=== PATIENT | female | born 1965 | race Caucasian/White ===

== ENCOUNTER 2019-01-31 12:27 | Emergency (ER) | payer MEDICAID ==
[~2019-01-31] VITALS: Ht 154.9 cm; Wt 55.0 kg
--- NOTE | 2019-01-31 12:42 | NUR ---
dr. rivera at bedside.
[2019-01-31 13:05] LABS: BASOPHILS % (AUTO) 0.6 % (0-1); HEMATOCRIT 44.3 % (35.0-45.0); HEMOGLOBIN 15.2 g/dl (12.0-16.0); LYMPHOCYTES # (AUTO) 0.9 X10'3 (1.1-4.8); LYMPHOCYTES % (AUTO) 18.1 % (21-51); MEAN CORPUSCULAR HEMOGLOBIN 29.7 PG (27.0-31.0); MEAN CORPUSCULAR HGB CONC 34.3 g/dL (33.0-36.5); MEAN CORPUSCULAR VOLUME 86.5 FL (78-98); MEAN PLATELET VOLUME 8.2 FL (7.4-10.4); MONOCYTES # (AUTO) 0.5 X10'3 (0-0.9); MONOCYTES % (AUTO) 9.6 % (2-12); NEUTROPHILS # (AUTO) 3.5 X10'3 (1.8-7.7); NEUTROPHILS % (AUTO) 70.7 % (42-75); PLATELET COUNT 224 X10'3 (140-440); RED BLOOD COUNT 5.12 X10'6 (4.20-5.60); RED CELL DISTRIBUTION WIDTH 13.1 % (11.5-14.5); WHITE BLOOD COUNT 4.9 X10'3 (4.5-11.0)
[2019-01-31 13:20] LABS: ALANINE AMINOTRANSFERASE 18 U/L (12-78); ALBUMIN 3.9 G/DL (3.4-5.0); ALKALINE PHOSPHATASE 124 IU/L (46-116); ANION GAP 9 (8-16); ASPARTATE AMINO TRANSFERASE 13 U/L (10-37); BILIRUBIN,TOTAL 0.4 MG/DL (0.1-1.0); BLOOD UREA NITROGEN 14 MG/DL (7-18); CALCIUM 9.4 MG/DL (8.5-10.1); CHLORIDE 102 MMOL/L (99-107); GLUCOSE 96 MG/DL (70-104); POTASSIUM 3.7 MMOL/L (3.5-5.1); SODIUM 139 MMOL/L (135-145); TOTAL PROTEIN 7.8 G/DL (6.4-8.2); eGFR 88 ML/MIN
[2019-01-31 13:24] LABS: CLARITY,URINE CLEAR (Clear); COLOR,URINE YELLOW (Yellow); GLUCOSE, URINE NEGATIVE (Neg); KETONES,URINE NEGATIVE (Neg); LEUKOCYTE ESTERASE ,URINE TRACE (Neg); NITRITES, URINE NEGATIVE (Neg); OCCULT BLOOD,URINE NEGATIVE (Neg); PROTEIN,URINE NEGATIVE (Neg); UROBILINOGEN,URINE 0.2 E.U/dL (0.2-1.0)
[2019-01-31 13:28] LABS: ETHANOL < 0.010 GM/DL (0.0-0.010)
[2019-01-31 13:31] LABS: UA COLLECTION TYPE CLN CATCH MIDSTREAM
[2019-01-31 13:32] LABS: WBC,URINE 30-50 /HPF (0-4)
[2019-01-31 13:33] LABS: BACTERIA,URINE 2+ /HPF (Neg); MUCUS STRANDS MODERATE /LPF (Neg); RBC,URINE NONE SEEN /HPF (0-2); SQUAMOUS EPITHELIAL CELL,UR MANY /LPF (FEW)
[2019-01-31 13:37] LABS: URINE AMPHETAMINE SCREEN NEGATIVE (Neg); URINE BARBITUATE SCREEN NEGATIVE (Neg); URINE BENZODIAZEPINES SCREEN NEGATIVE (Neg); URINE CANNABINOID SCREEN POSITIVE (Neg); URINE COCAINE SCREEN NEGATIVE (Neg); URINE METHADONE SCREEN POSITIVE (Neg); URINE OPIATE SCREEN NEGATIVE (Neg); URINE PHENCYCLIDINE SCREEN NEGATIVE (Neg)
[2019-01-31] MEDS ORDERED: nicotine 21mg patch - 24 hr TD ONE (13:50)
[2019-01-31] MEDS ORDERED: nitrofuran/nitrofuran macrocrysal 100 MG capsule PO ONE (14:30)
--- NOTE | 2019-01-31 14:39 | NUR ---
PAT SITTING UP AT THE BEDSIDE, AT BEDSIDE,PAT MED GIVEN,NO OTHER CONCERN,WILL CONT TO MONITOR.
--- NOTE | 2019-01-31 14:51 | NUR ---
PAGED [facility] 2X-NO RESPOND,ALSO CALLED [facility],UNABLE TO LOCATE PSYCHIATRIST AND GERA KIRK/KINDRA.DR. ULLOA AWARE AND CN.UNABLE TO TELE PSYCH SINCE NOT CONTRACTED ANYMORE.
--- NOTE | 2019-01-31 15:10 | NUR ---
PSYCHIATRIST AT BEDSIDE.
[2019-01-31] MEDS ORDERED: sertraline 25mg tablet PO ONE (16:05)
[2019-01-31] MEDS ORDERED: risperiDONE 0.5mg tablet PO ONE (16:05)
--- NOTE | 2019-01-31 16:09 | NUR ---
patient reported psychiatrist that she had + ppd and was advise to take a 9 month medication for tuberculosis,reports cxray showed "calcification" denies hemoptysis.also denies sputum culture being performed.patient placed on airborne precaution,hepa filter in the room.
--- NOTE | 2019-01-31 16:37 | NUR ---
PSYCHIATRIST DR. EDGAR. TOLD US PT. WAS TESTED POSITIVE FOR TB, AND WAS NOT TAKING HER MEDICATIONS. PT. WAS IMMEDIATLY PLACED IN ISOLATION AND THE HEPPA FILTER WAS PLACED IN ROOM...... DR. ULLOA WAS NOTIFIED. DR. ULLOA ORDERED A CHEST FILM WHICH WAS NEGATIVE..... DR. ULLOA HAS CLEARED THE PT. FOR ISOLATION. ABISAI WITH INFECTION CONTROL HAS BEEN MADE AWARE.
--- NOTE | 2019-01-31 16:45 | NUR ---
PAT OFF THE AIRBORN PRECAUTION,PAT DRESSED UP IN GREEN GOWN,SPOUSE AT BEDSIDE.
--- NOTE | 2019-01-31 16:52 | NUR ---
PATIENT STILL DENIES SI OR HISTORY OF SI.
--- NOTE | 2019-01-31 18:01 | NUR ---
patient in the room.on 1:1.no change in condition.will monitor.
[2019-01-31] MEDS ORDERED: LORazepam 1 MG tablet PO ONE (18:20)
--- NOTE | 2019-01-31 18:25 | NUR ---
PT DENIES S/H/I AND DENIES AUDIO/VISUAL HALLUCINATIONS AT THIS TIME. MOOD IS LABILE AND INCLUDES TEARFULNESS. PT REPORTS "BEING DEPRESSED" AND STATES "I JUST WANT TO GO HOME." EXPLAINED PT IS ON A 1799 HOLD AND IS NOT FREE TO LEAVE AT THIS TIME. PT BECAME INCREASINGLY AGITATED, BUT WITH MODERATE EFFORT WAS REDIRECTABLE. KATIE RANDY.
--- NOTE | 2019-01-31 18:32 | NUR ---
PT INDICATED SHE HAD NOT EATEN YET; SADIEY ORDERED
--- NOTE | 2019-01-31 19:15 | NUR ---
DINNER TRAY PROVIDED PT WHO IS NOW INDICATING SHE IS UNHAPPY WITH WHAT HAS BEEN PROVIDED BECAUSE IT "ISN'T LIKE THE TRAYS I SAW GO BY." WHEN PROBED IT APPEARS PT EXPECTED A WARM MEAL VERSES COLD.
[2019-01-31] MEDS ORDERED: haloperidol lactate 5mg/ml inj IM ONE (19:35)
--- NOTE | 2019-01-31 19:35 | NUR ---
WARM DINNER TRAY PROVIDED. PT MOOD LABILE, VASCILLATING BETWEEN TEARFULNESS AND RESTLESSNESS. KATIE PADILLA.
--- NOTE | 2019-01-31 19:44 | NUR ---
reports that pt has had adverse reactions "agitation" to Valium in the past.
[2019-01-31] MEDS ORDERED: NICOTINE POLACRILEX 2 MG LOZENGE BC PRN (20:45)
[2019-01-31] MEDS ORDERED: NICOTINE POLACRILEX 4 MG LOZENGE BC PRN (20:45)
[2019-02-01] MEDS ORDERED: METH-603 PO (03:41)
[2019-02-01] MEDS ORDERED: LORazepam 1 MG tablet PO ONE (05:00)
[2019-02-01 05:43] VITALS: BP 123/78
[2019-02-01] MEDS ORDERED: METH5SOL PO (06:06)
--- NOTE | 2019-02-01 06:54 | NUR ---
SPOKE WITH PHARMACIST AND HE STATES HE IS AWARE THAT THE PT IS SUPPOSED TO BE ON 61MG OF METHADONE LIQUID BUT WE DO NOT HAVE THE LIQUID VERSION SO MD MARINO OK'D THE PT GETTING 60MG SINCE THIS IS THE AMOUNT WE HAVE.
[2019-02-01] MEDS ORDERED: methadone 10mg tablet PO SCH (08:00)
--- NOTE | 2019-02-01 08:09 | NUR ---
TALKED WITH THE DOSING UNIT AT [facility] AND ASKED FOR THEM TO SEND A WRITTEN ORDER FOR THE PT'S METHADONE AND THE DOSE. MD MCCORD REQUESTED TO HAVE THE ORDER FOR THIS FROM THE FACILITY SENT OVER SO WE HAVE IT ON OUR RECORDS.
--- NOTE | 2019-02-01 09:19 | NUR ---
PT GIVEN THE PHONE TO CALL HER .
--- NOTE | 2019-02-01 09:41 | NUR ---
PT'S IS HERE TO VISIT PT.
--- NOTE | 2019-02-01 10:10 | NUR ---
PT IS BEING EVALUATED BY EUFEMIA GARCES
[2019-02-01] MEDS ORDERED: RISP0.5T3 PO (11:35)
[2019-02-01] MEDS ORDERED: HALO0.5T PO (11:35)
== END 2019-02-01 11:53 | disposition home or self-care (01) ==
LOC: ER 12:29
DX: F22 Delusional disorders (principal); F79 Unspecified intellectual disabilities; F32.9 Major depressive disorder, single episode, unspecified; F17.200 Nicotine dependence, unspecified, uncomplicated; Z88.0 Allergy status to penicillin; Z88.8 Allergy status to other drugs, medicaments and biological substances; Z79.899 Other long term (current) drug therapy
CPT/HCPCS: 36415; 71045; 80053; 80305; 80320; 81001; 85025; 96372; 99284; J1630

== ENCOUNTER 2019-02-16 14:36 | Inpatient (IN) | payer MEDICAID ==
[~2019-02-16] VITALS: Ht 154.9 cm; Wt 49.9 kg
[~2019-02-16 14:36] MED LIST: HALO0.5T PO; METH5SOL PO; RISP0.5T3 PO
[2019-02-16] MEDS ORDERED: QUET100T33 PO (15:28)
[2019-02-16] MEDS ORDERED: MELA3TAB PO (15:28)
[2019-02-16] MEDS ORDERED: loperamide 2mg capsule PO PRN (15:45)
[2019-02-16] MEDS ORDERED: acetaminophen 325mg tablet PO PRN ×2 (15:45)
[2019-02-16] MEDS ORDERED: magnesium hydroxide 30ml (MOM) UD suspension PO PRN (15:45)
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
[2019-02-16 16:59] VITALS: BP 136/93
[2019-02-16] MEDS ORDERED: NICOTINE POLACRILEX 2 MG LOZENGE BC PRN (17:35)
[2019-02-16] MEDS: LORazepam 1 MG tablet PO PRN (18:00)
[2019-02-16 20:00] VITALS: BP 139/86
[2019-02-16] MEDS: hydrOXYzine 25 MG tablet PO PRN (20:43)
[2019-02-16] MEDS: Melatonin 3mg tablet PO SCH (20:44)
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
[2019-02-17] MEDS: LORazepam 1 MG tablet PO PRN ×2 (05:54→12:12)
[2019-02-17 07:49] VITALS: BP 151/99
[2019-02-17] MEDS: nicotine 14mg patch - 24hr TD SCH (07:51)
[2019-02-17] MEDS: hydrOXYzine 25 MG tablet PO PRN ×2 (07:55→19:22)
[2019-02-17 08:50] LABS: CHOL/HDL RATIO 4.6 (0.00-4.99); CHOLESTEROL 164 MG/DL (0-200); HDL CHOLESTEROL 36 MG/DL (35-60); LDL CHOLESTEROL 110 MG/DL (50-100); TRIGLYCERIDES 108 MG/DL (20-135)
[2019-02-17 08:59] LABS: HEMOGLOBIN A1C 5.2 % (4.5-6.2)
[2019-02-17] MEDS ORDERED: pantoprazole 40mg Tablet.DR PO ONE (11:40)
--- NOTE | 2019-02-17 11:48 | NUR ---
Nurse note: Dr Jeffries evaluated pt. There was a question about pt having positive PPD at [facility] and starting I[place] there. Dr Jeffries asked us to call Dr Shafer. Called Dr Shafer and he states that pt is fine since negative CXR. No further orders and no isolation needed.
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
[2019-02-17] MEDS: cloNIDine 0.1 mg tablet PO PRN (19:45)
[2019-02-17 19:54] VITALS: BP 127/72
[2019-02-17] MEDS: Melatonin 3mg tablet PO SCH (20:21)
[2019-02-17] MEDS: risperiDONE 0.5mg tablet PO SCH (20:22)
[2019-02-17] MEDS: pantoprazole 40mg Tablet.DR PO SCH (20:22)
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
[2019-02-18 07:00] VITALS: BP 117/74
[2019-02-18] MEDS: pantoprazole 40mg Tablet.DR PO SCH ×2 (07:41→20:08)
[2019-02-18] MEDS: nicotine 14mg patch - 24hr TD SCH (07:42)
[2019-02-18] MEDS: mag hydrox/Alum hydrox/simeth 30ml oral suspension PO PRN (12:30)
--- NOTE | 2019-02-18 14:16 | NUR ---
Nursing Progress Note Legal hold: 5150 - DTS Report received from Lucy sidhu RN with use of SBAR Why are they here: Pt attempted suicide by OD on methadone and Seroquel resulting in a 7 day ICU stay at [facility]. Pt is delusional and paranoid and now denies it was a suicide attempt, states she was forced to do it. Assessment: Patient sleeping upon arrival to unit. Patient up for breakfast, then stayed in her room in the a.m. During 1:1 patient was extremely irritable and dismissive. Denying all SI, A/V/H. Patient was given Tylenol before [facility] in which her pain was 6/10, now she states it is 8/10. Patient with med seeking behavior. Patient makes delusional statements such as: You guys are trying to hurt me, assured her that this is not the case. She asked what are you doing for me? Informed her that we are giving her medications ordered by doctor, making sure she is safe, providing meals. Pts. charting states that she has not had BM for several days, pt states that she is not constipated and will not take anything offered. "I will let you know when I am constipated". Reports that she just wants to go home and be with her . S/I, H/I: Denies A/VH: Denies Sleep: 7.75 hrs NOC. ADL's: Independent Group attendance: Yes. Were meds taken: Yes Any med S/E: None reported nor observed Mental Status Exam Appearance: Dressed in personal attire, nonskid socks, hair in ponytail Eye contact: Intermittent Behavior: Guarded, dismissive, agitated Speech: Clear. Normal rate and volume. Mood: "Great" Affect: Costricted and irritable Thought process: paranoid delusions Thought Content: Fixated on abdominal pain, receiving Ativan, wants to leave Cognition: A/O X 4 Insight: Impaired. Judgment: Poor Interventions PRN's used: None. Therapeutic interventions: 1:1 assessment, establishment of rapport, therapeutic listening, reassurance that pt is safe here, reality orientation. Unit procedure, legal hold, and medication education. Q15 min safety checks. Restraints/seclusion/emergency medication: N/A Justification of Continued Inpatient Treatment: Pt is s/p a serious SA via OD, pt is paranoid and delusional. She needs crisis interruption, medication management/adjustment/monitoring in a a safe and therapeutic environment to provide stabilization, and prevent decompensation decreasing risk to patient for readmittance to inpatient unit.
[2019-02-18 19:00] VITALS: BP 166/114
[2019-02-18] MEDS: risperiDONE 0.5mg tablet PO SCH (20:06)
[2019-02-18] MEDS: cloNIDine 0.1 mg tablet PO PRN (20:07)
[2019-02-18] MEDS: Melatonin 3mg tablet PO SCH (20:08)
[2019-02-18 21:00] VITALS: BP 144/96
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
[2019-02-18] MEDS: hydrOXYzine 25 MG tablet PO PRN (21:39)
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
[2019-02-19] MEDS ORDERED: quetiapine 100mg tablet PO SCH (00:10)
[2019-02-19] MEDS ORDERED: QUEtiapine 25mg tablet PO ONE (01:50)
[2019-02-19] MEDS: hydrOXYzine 25 MG tablet PO PRN (04:36)
[2019-02-19 07:00] VITALS: BP 152/87
[2019-02-19] MEDS: pantoprazole 40mg Tablet.DR PO SCH ×2 (07:11→20:54)
[2019-02-19] MEDS: nicotine 14mg patch - 24hr TD SCH (07:11)
--- NOTE | 2019-02-19 13:28 | NUR ---
Nursing Progress Note Legal hold: 5150 - DTS Report received from nahum Renteria RN with use of SBAR Why are they here: Pt attempted suicide by OD on methadone and Seroquel resulting in a 7 day ICU stay at [facility]. Pt is delusional and paranoid and now denies it was a suicide attempt, states she was forced to do it. Assessment: Patient awake sitting in chair upon arrival to unit. Patient did not sleep at all last night. States she has withdrawal symptoms with terrible abdominal pain, that kept her up all night. Patient states that she doesn't feel like we are helping her here and wants to be transferred to [facility] in [place] that she has been to before. She thinks that the staff does not believe her that she is in pain. Consulted with HIMANSHU Tomlinson and he states that withdrawal from opioids only last 2-3 days, and she has been without opioids for 10 days. Her 5150 is up today, and she is upset about the thought of staying here longer. She is acting paranoid, that the nurses and doctors don't want to help her. Manipulative. She was given Tylenol for pain this morning and then threw up and said she has an allergy to it, although it was given the day before without symptoms. She states Clonidine makes her have continuous orgasms; both of these medications were stopped and listed as allergies. She has been on the phone with family crying, and seems to be going through grief stages. She will not discuss overdose with RN, stating she talked to HIMANSHU Tomlinson about this yesterday. S/I, H/I: Denies A/VH: Denies Sleep: No sleep at night. ADL's: Independent Group attendance: No. Were meds taken: Yes Any med S/E: None reported nor observed Mental Status Exam Appearance: Patient that appears older than her stated age with purple hair. Eye contact: Intermittent Behavior: Guarded, crying on telephone. Speech: Clear. Normal rate and volume. Mood: Depressed Affect: Constricted and irritable Thought process: paranoid delusions of being poisoned, staff are against her. Thought Content: Fixated on abdominal pain and getting Ativan. Wants to be discharged or go to [facility]. Cognition: A/O X 4 Insight: Impaired. Judgment: Poor Interventions PRN's used: Tylenol. Therapeutic interventions: 1:1 assessment, therapeutic listening, reassurance that pt is safe here, reality orientation. Unit procedure, legal hold, and medication education. Q15 min safety checks. Restraints/seclusion/emergency medication: N/A Justification of Continued Inpatient Treatment: Pt is s/p a serious SA via OD, pt is paranoid and delusional. She needs crisis interruption, medication management/adjustment/monitoring in a a safe and therapeutic environment to provide stabilization, and prevent decompensation decreasing risk to patient for readmittance to inpatient unit.
[2019-02-19 19:22] VITALS: BP 152/100
[2019-02-19] MEDS: Melatonin 3mg tablet PO SCH (20:54)
[2019-02-19] MEDS ORDERED: risperiDONE 2mg tablet PO SCH (21:00)
--- NOTE | 2019-02-20 02:24 | NUR ---
Nursing Progress Note Legal hold: 5150 - DTS Report received from nahum Renee RN with use of SBAR Why are they here: Pt attempted suicide by OD on methadone and Seroquel resulting in a 7 day ICU stay at [facility]. Pt is delusional and paranoid and now denies it was a suicide attempt, states she was forced to do it. Assessment: Pt awake in bed in dark room at start of shift. Pt keep face covered with arm during conversation. Pt said she did not want to talk to about why she was here "if that is OK". C/o abd pain but did not want any pain medications. Took all Routine meds declined any PRNs. Came to froup room for snack. Did not interact with anyone went right back to room after eating. S/I, H/I: Declined to say A/VH: Declined to say Sleep: Asleep at this time ADL's: Independent Group attendance: came to group room for snack Were meds taken: Yes Any med S/E: None reported or observed Mental Status Exam Appearance: Patient that appears older than her stated age with purple hair. Eye contact: Intermittent Behavior: Guarded, crying on telephone. Speech: Clear. Normal rate and volume. Mood: Depressed Affect: Constricted and irritable Thought process: Staff are against her. Thought Content: No one cares about her health complaints Cognition: A/O X 4 Insight: Impaired. Judgment: Poor Interventions PRN's used: none Therapeutic interventions: 1:1 assessment, therapeutic listening, reassurance that pt is safe here, reality orientation. Unit procedure, legal hold, and medication education. Q15 min safety checks. Restraints/seclusion/emergency medication: N/A Justification of Continued Inpatient Treatment: Pt is s/p a serious SA via OD, pt is paranoid and delusional. She needs crisis interruption, medication management/adjustment/monitoring in a a safe and therapeutic environment to provide stabilization, and prevent decompensation decreasing risk to patient for readmittance to inpatient unit.
[2019-02-20] MEDS: nicotine 14mg patch - 24hr TD SCH (07:31)
[2019-02-20] MEDS: pantoprazole 40mg Tablet.DR PO SCH ×2 (07:32→21:51)
[2019-02-20 08:15] VITALS: BP 132/101
[2019-02-20] MEDS: mag hydrox/Alum hydrox/simeth 30ml oral suspension PO PRN (12:02)
--- NOTE | 2019-02-20 12:26 | NUR ---
Nursing Progress Note Legal hold: 5250 - DTS Report received from nahum Brewer RN with use of SBAR Why are they here: Pt attempted suicide by OD on methadone and Seroquel resulting in a 7 day ICU stay at [facility]. Pt is delusional and paranoid and now denies it was a suicide attempt, states she was forced to do it. Assessment: Patient awake upon arrival to unit. Attempted physical exam and mental status exam. All patient would say is that she is "peachy". Approached patient after lunch with honest appraisal of situation. Patient responded that she does not know how to communicate with people. She is not used to women being kind to her. Informed her that she was pushing people away and had a wall up, and that if she would be open and willing to accept help, that she would find that people would rally around her and help her live a better life. Patient stated that she was in a lot of pain from withdrawing from Methadone. Patient states that she doesn't even know what she took to overdose, but that it never should have happened. Patient apologized for the disrespect that she had been showing pattern chart writer, and asked for and received a hug. Patient was smiling brightly by the end of the conversation. ISAAC Nesbitt just informed RN that patient was in bathroom "trying to throw up". She was asked to stop, which she did, but she heard patient in bathroom as she was leaving. S/I, H/I: Denies A/VH: Denies Sleep: 7.75 hrs NOC, but pt states that she did not sleep well. ADL's: Independent Group attendance: Yes. Were meds taken: Yes Any med S/E: None reported nor observed Mental Status Exam Appearance: Patient that appears older than her stated age with purple hair. Eye contact: Intermittent Behavior: At first guarded, dismissive and angry. After talk she was smiling. Speech: Clear. Normal rate and volume. Mood: Depressed Affect: Constricted and irritable Thought process: paranoid delusions of being poisoned, staff are against her. Thought Content: Fixated on abdominal pain. Wants to be discharged or go to [facility]. Cognition: A/O X 4 Insight: Poor. Judgment: Poor Interventions PRN's used: Maalox, but patient was "trying to throw up" after administration. Refuses all other prns. Therapeutic interventions: 1:1 assessment, therapeutic listening, reassurance that pt is safe here, reality orientation. Unit procedure, legal hold, and medication education. Q15 min safety checks. Restraints/seclusion/emergency medication: N/A Justification of Continued Inpatient Treatment: Pt is s/p a serious SA via OD, pt is paranoid and delusional. She needs crisis interruption, medication management/adjustment/monitoring in a a safe and therapeutic environment to provide stabilization, and prevent decompensation decreasing risk to patient for readmittance to inpatient unit.
[2019-02-20 20:25] VITALS: BP 137/105
[2019-02-20] MEDS ORDERED: QUEtiapine 25mg tablet PO ONE (21:25)
[2019-02-20] MEDS: Melatonin 3mg tablet PO SCH (21:51)
[2019-02-20] MEDS: dicyclomine 10 MG capsule PO SCH (21:52)
[2019-02-21] MEDS ORDERED: QUEtiapine 25mg tablet PO ONE (01:55)
[2019-02-21] MEDS: dicyclomine 10 MG capsule PO SCH ×3 (02:02→14:00)
--- NOTE | 2019-02-21 02:56 | NUR ---
Nursing Progress Note Legal hold: 5250 - DTS Report received from nahum Renee RN with use of SBAR Why are they here: Pt attempted suicide by OD on methadone and Seroquel resulting in a 7 day ICU stay at [facility]. Pt is delusional and paranoid and now denies it was a suicide attempt, states she was forced to do it. Assessment: Pt affect bright. Pt said "it's ok I lost my (legal hold) hearing I'm not going to be here that much longer" Pt denies depression or SI. Describes mood as "good". Pt interacted in a very positive way with a very difficult pt. Encouraged the other pt and said very kind things to her. here to visit. During 's visit pt enlisted to ask that pt receive Ativan for stomach pain. Explanation that Ativan is not a pain medication but an antianxiety medication made no impression. Offered Atarax pt said it makes her throw up. Motrin, Aleve, and Tylenol also make the pt throw up. Robi Akbar talked to pt at length ordered Bentyl and Seroquel. Pt happy with new orders. Pt unable to sleep repeat Seroquel. Pt still not asleep at this time. S/I, H/I: Denies A/VH: Denies Sleep: no sleep this shift so far ADL's: Independent Group attendance: Yes. Were meds taken: Yes Any med S/E: None reported nor observed Mental Status Exam Appearance: Patient that appears older than her stated age with purple hair. Eye contact: Good Behavior: Pleasant and cooperative Speech: Clear. Normal rate and volume. Mood: Good Affect: Bright Thought process: Delusional at times Thought Content: Fixated on abdominal pain. Lists of side effects to medications. Cognition: A/O X 4 Insight: Poor. Judgment: Poor Interventions PRN's used: none Therapeutic interventions: 1:1 assessment, therapeutic listening, reassurance that pt is safe here, reality orientation. Unit procedure, legal hold, and medication education. Q15 min safety checks. Restraints/seclusion/emergency medication: N/A Justification of Continued Inpatient Treatment: Pt is s/p a serious SA via OD, pt is paranoid and delusional. She needs crisis interruption, medication management/adjustment/monitoring in a a safe and therapeutic environment to provide stabilization, and prevent decompensation decreasing risk to patient for readmittance to inpatient unit.
[2019-02-21 07:51] VITALS: BP 158/86
[2019-02-21] MEDS: risperiDONE 2mg tablet PO SCH (08:04)
[2019-02-21] MEDS: pantoprazole 40mg Tablet.DR PO SCH (08:04)
[2019-02-21] MEDS: nicotine 14mg patch - 24hr TD SCH (08:04)
--- NOTE | 2019-02-21 12:50 | NUR ---
Initial: Pt admit to [facility] with depression. Pt currently on regular diet with previous average 75% PO intake however now averaging 25% likely not meeting nutrient needs. Per MD notes pt c/o abdominal pain and possibly going through withdrawals. D/w RN who states hospitalist to visit pt. Informed RN to let RD/dietary staff know if there's anything pt is requesting to optimize PO intake. [facility] 02/20. Will continue to follow. Recommendations: 1) Continue with regular diet 2) Monitor need for ONS 3) Weekly wts Addendum: 02/21/19 at [address] Amended: Links added.
--- NOTE | 2019-02-21 13:23 | NUR ---
1:1 Called [facility] at [phone] to see who patient has for a PCP. Was not able to contact.
[2019-02-21 14:54] LABS: CLARITY,URINE SLIGHTLY CLOUDY (Clear); COLOR,URINE YELLOW (Yellow); GLUCOSE, URINE NEGATIVE (Neg); KETONES,URINE NEGATIVE (Neg); LEUKOCYTE ESTERASE ,URINE NEGATIVE (Neg); NITRITES, URINE NEGATIVE (Neg); OCCULT BLOOD,URINE NEGATIVE (Neg); PROTEIN,URINE NEGATIVE (Neg); UROBILINOGEN,URINE 0.2 E.U/dL (0.2-1.0)
[2019-02-21 14:55] LABS: UA COLLECTION TYPE NON-SPECIFIED
[2019-02-21 15:00] LABS: SQUAMOUS EPITHELIAL CELL,UR MANY /LPF (FEW)
[2019-02-21 15:01] LABS: BACTERIA,URINE 1+ /HPF (Neg); MUCUS STRANDS FEW /LPF (Neg); RBC,URINE 0-2 /HPF (0-2); WBC,URINE 0-4 /HPF (0-4)
--- NOTE | 2019-02-21 17:23 | NUR ---
Nursing Progress Note Legal hold: 5250 - DTS Report received from nahum Kowalski RN with use of SBAR Why are they here: Pt attempted suicide by OD on methadone and Seroquel resulting in a 7 day ICU stay at [facility]. Pt is delusional and paranoid and now denies it was a suicide attempt, states she was forced to do it. Assessment: Received patient up in the room. Patient had bright affect and appeared to be relaxed. Patient denied auditory hallucinations, denied depression and denied suicidal thoughts. As the day went on patient complained of abdominal pain and chest pain. PA asked for the hospitalist to come see the patient. Dr. Molina came and saw the patient and ordered a bunch of tests which she will follow up with. Patient called the patient rights advocate Kevan Waller who came by and saw her and patient then submitted a writ to appeal her 14 day hold. Will continue to provide safe environment and monitor for patient safety. S/I, H/I: Denies A/VH: Denies Sleep: 7.75 hrs NOC, but pt states that she did not sleep well. ADL's: Independent Group attendance: Yes. Were meds taken: Yes Any med S/E: None reported nor observed Mental Status Exam Appearance: Patient that appears older than her stated age with purple hair. Eye contact: Intermittent Behavior: At first guarded, dismissive and angry. After talk she was smiling. Speech: Clear. Normal rate and volume. Mood: Depressed Affect: Constricted and irritable Thought process: paranoid delusions of being poisoned, staff are against her. Thought Content: Fixated on abdominal pain. Wants to be discharged or go to [facility]. Cognition: A/O X 4 Insight: Poor. Judgment: Poor Interventions PRN's used: Maalox, but patient was "trying to throw up" after administration. Refuses all other prns. Therapeutic interventions: 1:1 assessment, therapeutic listening, reassurance that pt is safe here, reality orientation. Unit procedure, legal hold, and medication education. Q15 min safety checks. Restraints/seclusion/emergency medication: N/A Justification of Continued Inpatient Treatment: Pt is s/p a serious SA via OD, pt is paranoid and delusional. She needs crisis interruption, medication management/adjustment/monitoring in a a safe and therapeutic environment to provide stabilization, and prevent decompensation decreasing risk to patient for readmittance to inpatient unit.
[2019-02-21] MEDS ORDERED: dicyclomine 10 MG capsule PO PRN (18:20)
[2019-02-21 20:47] VITALS: BP 167/99
[2019-02-21] MEDS: Melatonin 3mg tablet PO SCH (21:00)
[2019-02-21] MEDS ORDERED: QUEtiapine 25mg tablet PO SCH (21:00)
--- NOTE | 2019-02-22 03:37 | NUR ---
Nursing Progress Note Legal hold: 5250 - DTS Report received from nahum Renee RN with use of SBAR Why are they here: Pt attempted suicide by OD on methadone and Seroquel resulting in a [address] [facility]. Pt is delusional and paranoid and now denies it was a suicide attempt, states she was forced to do it. Assessment: Pt in room at start of shift. Pt denies depression or SI. Pt numerous c/o Chief nurse does not have her best interests at heart, Dr. Rosenbaum will not give her the medications she wants, Pt filed a writ today she said the ombudsman was very helpful. Pt said she was not going to allow lab draws that were ordered to figure out why she has abd pain. "I'm going to [place] when I get out of here." Pt saw Robi Akbar who told her her would be discharged in AM. Pt very happy and excited to be discharged will return home with . S/I, H/I: Denies A/VH: Denies Sleep: sleeping at this time ADL's: Independent Group attendance: Socialized in group room. Were meds taken: Yes Any med S/E: None reported nor observed Mental Status Exam Appearance: Patient that appears older than her stated age with purple hair. Eye contact: Intermittent Behavior: pleasant and cooperative Speech: Clear. Normal rate and volume. Mood: denies depression Affect: pleasant Thought process:, staff are against her. Thought Content: Fixated on abdominal pain. Wants to be discharged or go to [facility]. Cognition: A/O X 4 Insight: Poor. Judgment: Poor Interventions PRN's used: none Therapeutic interventions: 1:1 assessment, therapeutic listening, reassurance that pt is safe here, reality orientation. Unit procedure, legal hold, and medication education. Q15 min safety checks. Restraints/seclusion/emergency medication: N/A Justification of Continued Inpatient Treatment: Pt is s/p a serious SA via OD, pt is paranoid and delusional. She needs crisis interruption, medication management/adjustment/monitoring in a a safe and therapeutic environment to provide stabilization, and prevent decompensation decreasing risk to patient for readmittance to inpatient unit.
[2019-02-22 07:54] VITALS: BP 156/102
[2019-02-22] MEDS ORDERED: pantoprazole 40mg Tablet.DR PO SCH (08:00)
[2019-02-22] MEDS ORDERED: lisinopril 10 MG tablet PO SCH (08:00)
[2019-02-22 08:24] VITALS: BP_SYST 156
[2019-02-22] MEDS: risperiDONE 2mg tablet PO SCH (08:25)
[2019-02-22] MEDS: nicotine 14mg patch - 24hr TD SCH (08:26)
[2019-02-22] MEDS ORDERED: LISI10TA4 PO (11:18)
[2019-02-22] MEDS ORDERED: RISP2TAB3 PO (11:18)
--- NOTE | 2019-02-22 13:06 | NUR ---
Discharge Note: Patient discharged to home with all her personal possessions as inventoried and agreed upon by Ezekiel Garrido and patient. Ambulated out of unit accompanied by and staff member Ezekiel. will be driving patient home. Patient denies suicidal ideation or intent. Mood and affect stable. Noted improvement since admission. She will follow up with psychiatric care at [facility]. Patient is not a smoker and did not require nicotine supplements at time of discharge.
[2019-02-25] MEDS ORDERED: pantoprazole 40mg Tablet.DR PO SCH (07:30)
== END 2019-02-22 12:50 | disposition home or self-care (01) | DRG 751 ==
LOC: ADULT MH 15:27
PROVIDERS: ADMIT Psychiatry & Neurology Psychiatry; ATTEND Psychiatry & Neurology Psychiatry
DX: F33.3 Major depressive disorder, recurrent, severe with psychotic symptoms (principal); F17.200 Nicotine dependence, unspecified, uncomplicated; T40.3X2A Poisoning by methadone, intentional self-harm, initial encounter; K30 Functional dyspepsia; F60.3 Borderline personality disorder; I10 Essential (primary) hypertension; R10.9 Unspecified abdominal pain; T42.4X2A Poisoning by benzodiazepines, intentional self-harm, initial encounter; Y92.89 Other specified places as the place of occurrence of the external cause; Z71.6 Tobacco abuse counseling
CPT/HCPCS: 36415; 71045; 74018; 80061; 81001; 83036; 87070; 93005; Q0177

== ENCOUNTER 2019-04-06 17:42 | Emergency (ER) | payer MEDICAID ==
[~2019-04-06] VITALS: Ht 154.9 cm; Wt 45.5 kg
[~2019-04-06 17:42] MED LIST changes: -HALO0.5T PO; +LISI10TA4 PO; +MELA3TAB64 PO; -METH5SOL PO; -RISP0.5T3 PO; +RISP2TAB3 PO
[2019-04-06 18:34] LABS: URINE AMPHETAMINE SCREEN NEGATIVE (Neg); URINE BARBITUATE SCREEN NEGATIVE (Neg); URINE BENZODIAZEPINES SCREEN NEGATIVE (Neg); URINE CANNABINOID SCREEN POSITIVE (Neg); URINE COCAINE SCREEN NEGATIVE (Neg); URINE METHADONE SCREEN NEGATIVE (Neg); URINE OPIATE SCREEN NEGATIVE (Neg); URINE PHENCYCLIDINE SCREEN NEGATIVE (Neg)
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
[2019-04-06 18:51] LABS: CLARITY,URINE SLIGHTLY CLOUDY (Clear); COLOR,URINE AMBER (Yellow); GLUCOSE, URINE NEGATIVE (Neg); KETONES,URINE TRACE mg/dl (Neg); LEUKOCYTE ESTERASE ,URINE TRACE (Neg); NITRITES, URINE NEGATIVE (Neg); OCCULT BLOOD,URINE NEGATIVE (Neg); PH,URINE 5.5 (4.8-8.0); PROTEIN,URINE 30 mg/dl (Neg)
[2019-04-06 18:54] LABS: UA COLLECTION TYPE CLN CATCH MIDSTREAM
[2019-04-06] MEDS ORDERED: LORazepam 0.5 MG tablet PO PRN (18:55)
--- NOTE | 2019-04-06 18:55 | NUR ---
The patient's is at the bedside. He was made aware of treatment plan.
[2019-04-06 19:10] LABS: BACTERIA,URINE 2+ /HPF (Neg); MUCUS STRANDS MANY /LPF (Neg); SQUAMOUS EPITHELIAL CELL,UR MANY /LPF (FEW)
[2019-04-06 19:12] LABS: RBC,URINE 0-2 /HPF (0-2); YEAST FEW /HPF (NEGATIVE)
[2019-04-06 19:13] LABS: CELLULAR CAST 0-4 /LPF (NEGATIVE); COARSE GRANULAR CAST 0-3 /LPF (NEGATIVE)
[2019-04-06 19:17] LABS: CAL OXALATE CRYSTALS 2+ /HPF (NEGATIVE)
[2019-04-06 19:25] LABS: BASOPHILS % (AUTO) 0.4 % (0-1); EOSINOPHILS # (AUTO) 0.1 X10'3 (0-0.9); EOSINOPHILS % (AUTO) 0.9 % (0-6); HEMATOCRIT 42.2 % (35.0-45.0); HEMOGLOBIN 14.5 g/dl (12.0-16.0); LYMPHOCYTES # (AUTO) 1.4 X10'3 (1.1-4.8); LYMPHOCYTES % (AUTO) 22.5 % (21-51); MEAN CORPUSCULAR HEMOGLOBIN 29.5 PG (27.0-31.0); MEAN CORPUSCULAR HGB CONC 34.2 g/dL (33.0-36.5); MEAN CORPUSCULAR VOLUME 86.1 FL (78-98); MEAN PLATELET VOLUME 8.1 FL (7.4-10.4); MONOCYTES # (AUTO) 0.5 X10'3 (0-0.9); MONOCYTES % (AUTO) 7.9 % (2-12); NEUTROPHILS # (AUTO) 4.3 X10'3 (1.8-7.7); NEUTROPHILS % (AUTO) 68.3 % (42-75); PLATELET COUNT 233 X10'3 (140-440); RED BLOOD COUNT 4.91 X10'6 (4.20-5.60); RED CELL DISTRIBUTION WIDTH 14.2 % (11.5-14.5); WHITE BLOOD COUNT 6.3 X10'3 (4.5-11.0)
[2019-04-06 19:37] LABS: ALANINE AMINOTRANSFERASE 22 U/L (12-78); ALBUMIN 3.7 G/DL (3.4-5.0); ALKALINE PHOSPHATASE 91 IU/L (46-116); ANION GAP 10 (8-16); ASPARTATE AMINO TRANSFERASE 11 U/L (10-37); BILIRUBIN,TOTAL 0.4 MG/DL (0.1-1.0); BLOOD UREA NITROGEN 15 MG/DL (7-18); BUN/CREATININE RATIO 24.6 (6.6-38.0); CALCIUM 9.4 MG/DL (8.5-10.1); CHLORIDE 106 MMOL/L (99-107); CREATININE 0.61 MG/DL (0.40-0.90); GLUCOSE 97 MG/DL (70-104); SODIUM 141 MMOL/L (135-145); TOTAL CARBON DIOXIDE 25.1 MMOL/L (24-32); TOTAL PROTEIN 7.4 G/DL (6.4-8.2); eGFR > 90 ML/MIN
[2019-04-06] MEDS ORDERED: potassium Cl 20 mEq SR tablet PO STA (19:51)
--- NOTE | 2019-04-06 19:52 | NUR ---
Cam DOWNS made aware of critical lab of K+ 3.0 and orders received.
[2019-04-06 19:57] LABS: ETHANOL < 0.010 GM/DL (0.0-0.010)
[2019-04-06] MEDS: nicotine 21mg patch - 24 hr TD SCH (19:57)
--- NOTE | 2019-04-06 20:08 | NUR ---
Frankie douglas in [facility] - 04/06/19 at 2042 by YARON Melodie Middleton patient advocate [phone]
[2019-04-06] MEDS: Melatonin 3mg tablet PO SCH ×2 (20:30→21:00)
[2019-04-06] MEDS: risperiDONE 2mg tablet PO SCH ×2 (20:30→21:00)
--- NOTE | 2019-04-06 20:35 | NUR ---
The patient refused PO medications and presents as very paranoid. Admits to feeling paranoid about the food and has not eaten.
[2019-04-06] MEDS ORDERED: LORazepam 2 mg/ml vial IV ONE (21:00)
[2019-04-06] MEDS ORDERED: TETanus/Pertussis (Acell)/Diphther VAC/PF (Tdap-Adult) 0.5ml syringe IM ONE (21:00)
[2019-04-06] MEDS ORDERED: LIDOcaine 1% w/epiNEPHrine 1:200,000 30ml vial IM ONE (21:00)
[2019-04-06] MEDS ORDERED: iohexol 300mg/ml 100ml inj. ONE (21:11)
--- NOTE | 2019-04-06 21:33 | NUR ---
The patient is very paranoid and mistrustful of staff. She refused to have tetnus booster. Patient out to CT
[2019-04-06] MEDS ORDERED: OLANZapine 5mg rapidly disint. tablet PO ONE (21:50)
--- NOTE | 2019-04-06 22:19 | NUR ---
Dr. Proctor made aware of patient complaining of resperdal and melatonin not working in the past per patient report and that she was now willing to try zyprexa and orders were received. She did take the zypexa zydis and appears to be asleep at this time.
--- NOTE | 2019-04-07 00:03 | NUR ---
The patient was uncooperative with the PA who attempted to place sutures. Wound cleaned by exchange operator and steri strips applied.
--- NOTE | 2019-04-07 02:02 | NUR ---
The patient appears to be aslseep
--- NOTE | 2019-04-07 04:46 | NUR ---
The patient appears to be asleep
--- NOTE | 2019-04-07 08:00 | NUR ---
AWAKE AND UP WALKING AROUND NURSES DESK. MAKING SEVERAL PHONE CALLS TO . STATES SHE NEEDS MED FOR ANXIETY AND NICOTINE WITHDRAWAL.
[2019-04-07] MEDS: nicotine 21mg patch - 24 hr TD SCH (08:14)
[2019-04-07] MEDS: LORazepam 1 MG tablet PO PRN ×2 (08:14→20:03)
--- NOTE | 2019-04-07 09:47 | NUR ---
husbands number [phone]
--- NOTE | 2019-04-07 10:12 | NUR ---
pt is sleeping
--- NOTE | 2019-04-07 10:48 | NUR ---
pt is resting quietly in bed
--- NOTE | 2019-04-07 11:43 | NUR ---
mental health worker at bedside
--- NOTE | 2019-04-07 11:47 | NUR ---
[facility] WORKER INTERVIEWING PATIENT AT PRESENT. CALLED IN FOR CONDITION REPORT AND WILL BE COMING TO VISIT THIS AFTERNOON.
--- NOTE | 2019-04-07 12:13 | NUR ---
pt on the phone with
--- NOTE | 2019-04-07 12:30 | NUR ---
HERE TO VISIT. PATIENT SLIGHTLY AGITATED WITH , BUT DIRECTED TO CALM SELF.
--- NOTE | 2019-04-07 12:37 | NUR ---
[facility] mental health worker is now talking to
--- NOTE | 2019-04-07 13:30 | NUR ---
PT LAYING IN BED CRYING BECAUSE SHE IS FRUSTRATED.
--- NOTE | 2019-04-07 14:08 | NUR ---
PT IN ROOM, APPEARS TO BE ASLEEP.
--- NOTE | 2019-04-07 15:11 | NUR ---
PT IS AWAKE, LAYING IN BED QUIETLY
--- NOTE | 2019-04-07 15:53 | NUR ---
PT APPEARS TO BE SLEEPING
[2019-04-07] MEDS ORDERED: QUET100T33 PO (21:29)
[2019-04-07] MEDS: quetiapine 100mg tablet PO SCH (21:57)
[2019-04-08] MEDS: LORazepam 1 MG tablet PO PRN ×2 (03:41→10:46)
[2019-04-08] MEDS ORDERED: LORazepam 1 MG tablet PO ONE (04:25)
[2019-04-08] MEDS ORDERED: diphenhydrAMINE 25mg capsule PO ONE (04:25)
[2019-04-08] MEDS ORDERED: quetiapine 100mg tablet PO ONE (05:15)
[2019-04-08] MEDS ORDERED: LORazepam 2 mg/ml vial IM ONE (05:25)
[2019-04-08] MEDS ORDERED: haloperidol lactate 5mg/ml inj IM ONE (05:25)
[2019-04-08 05:30] VITALS: BP 181/113
--- NOTE | 2019-04-08 05:35 | NUR ---
Rec'd call from Katerine @ [facility] requesting an HCG. This senior copywriter checked pt's chart and informed Katerine that pt had no LMP due to menopause. Katerine at [facility] said that she would check with the doctor. RN informed.
--- NOTE | 2019-04-08 05:42 | NUR ---
Patient has been beligerant and acting paranoid accusing me of giving her placebo medication. Stating that the clocks are wrong and we are trying to trick her. Arguing with and challenging the security guards. Constantly asking random questions and not believing any answers given. PO ativan has not been effective. She refused benadryl as well as a 2nd dose of seroquel offered. States she does want to go back to sleep, but we are giving her placebo. IM ativan and haldol ordered and patient was cooperative with the administration.
--- NOTE | 2019-04-08 07:14 | NUR ---
Pt awake and stating she is hungry. Pt given snacks
--- NOTE | 2019-04-08 07:14 | NUR ---
pt has been asking for food. pt has food now and lots of snacks pt is now happy.
[2019-04-08] MEDS: nicotine 21mg patch - 24 hr TD SCH (08:33)
[2019-04-08] MEDS: quetiapine 100mg tablet PO SCH (08:34)
--- NOTE | 2019-04-08 08:42 | NUR ---
sundeep from [facility] called @8:35am pickup time 12:15pm
--- NOTE | 2019-04-08 08:47 | NUR ---
Liset from [facility] called to say Pt has been accepted to [facility] by Dr Jameson. The truck driver's offsider will be here at 1215.
--- NOTE | 2019-04-08 09:10 | NUR ---
pt resting quietly
--- NOTE | 2019-04-08 09:30 | NUR ---
pts is at bedside
--- NOTE | 2019-04-08 09:54 | NUR ---
pts left due to pts behavior. pt threw ice water across the room, pt verbally abusing staff members and pt is being rude to and staff members.
--- NOTE | 2019-04-08 09:55 | NUR ---
Pt's came to visit. Pt became loud and agitated and visit was cut short
--- NOTE | 2019-04-08 10:40 | NUR ---
Pt asleep resting on left side in no apparent distress. Respirations are even and unlabored.
--- NOTE | 2019-04-08 11:06 | NUR ---
pt aggitated per Tech stated pt was throwing items out of room. Spoke with Dr. Siddiqui, stated she will be over shortly to assess pt.
--- NOTE | 2019-04-08 11:37 | NUR ---
PT IS ON THE PHONE WITH HER
--- NOTE | 2019-04-08 12:17 | NUR ---
[facility] transporter here to take client to [facility]
== END 2019-04-08 12:26 | disposition home or self-care (01) ==
LOC: ER 17:42
DX: S31.112A Laceration without foreign body of abdominal wall, epigastric region without penetration into peritoneal cavity, initial encounter (principal); S21.139A Puncture wound without foreign body of unspecified front wall of thorax without penetration into thoracic cavity, initial encounter; E87.6 Hypokalemia; F32.9 Major depressive disorder, single episode, unspecified; Z79.899 Other long term (current) drug therapy; Z88.0 Allergy status to penicillin; Z88.8 Allergy status to other drugs, medicaments and biological substances; X78.1XXA Intentional self-harm by knife, initial encounter; Y93.89 Activity, other specified; Y92.89 Other specified places as the place of occurrence of the external cause; Y99.8 Other external cause status
CPT/HCPCS: 36415; 74175; 80053; 80305; 80320; 81001; 84443; 85025; 96372; 96374; 99285; J1630; J2060; Q0163; Q9967

== ENCOUNTER 2024-06-03 11:24 | Inpatient (IN) | payer MEDICAID ==
[~2024-06-03] VITALS: Ht 154.9 cm; Wt 59.6 kg
[~2024-06-03 11:24] MED LIST changes: -LISI10TA4 PO; -MELA3TAB64 PO; +QUET100T34 PO; -RISP2TAB3 PO
[2024-06-03 12:31] LABS: BASOPHILS % (AUTO) 0.3 % (0-1); EOSINOPHILS % (AUTO) 0.3 % (0-6); HEMOGLOBIN 14.7 g/dl (12.0-16.0); LYMPHOCYTES # (AUTO) 0.9 X10'3 (1.1-4.8); MEAN CORPUSCULAR HEMOGLOBIN 28.2 PG (27.0-31.0); MEAN CORPUSCULAR HGB CONC 34.2 g/dL (33.0-36.5); MEAN CORPUSCULAR VOLUME 82.6 FL (78-98); MEAN PLATELET VOLUME 9.1 FL (7.4-10.4); MONOCYTES # (AUTO) 0.7 X10'3 (0-0.9); MONOCYTES % (AUTO) 7.5 % (2-12); NEUTROPHILS # (AUTO) 7.2 X10'3 (1.8-7.7); NEUTROPHILS % (AUTO) 81.9 % (42-75); PLATELET COUNT 284 X10'3 (140-440); RED CELL DISTRIBUTION WIDTH 13.6 % (11.5-14.5); WHITE BLOOD COUNT 8.8 X10'3 (4.5-11.0)
[2024-06-03 12:34] LABS: ALANINE AMINOTRANSFERASE 17 U/L (12-78); ALBUMIN 3.1 G/DL (3.4-5.0); ALBUMIN/GLOBULIN RATIO 0.7 (1.1-1.5); ALKALINE PHOSPHATASE 167 IU/L (46-116); ASPARTATE AMINO TRANSFERASE 31 U/L (10-37); BILIRUBIN,TOTAL 0.9 MG/DL (0.1-1.0); BLOOD UREA NITROGEN 26 MG/DL (7-18); BUN/CREATININE RATIO 21.5 (10.0-20.0); CALCIUM 9.5 MG/DL (8.5-10.1); CREATININE 1.21 MG/DL (0.40-0.90); GLUCOSE 118 MG/DL (70-104); LIPASE 23 U/L (16-77); TOTAL CARBON DIOXIDE 28.4 MMOL/L (24-32); TOTAL PROTEIN 7.7 G/DL (6.4-8.2); eCRCL 38 ML/MIN; eGFR 46 ML/MIN
[2024-06-03] MEDS: ondansetron/PF 4mg/2ml inj IV ONE (12:37)
[2024-06-03] MEDS: normal saline 1000ML IV soln IVB ONE (12:37)
[2024-06-03] MEDS: morphine 4 MG/ML inj SYRINge IV ONE ×2 (12:37→14:15)
[2024-06-03 12:55] LABS: POTASSIUM 1.9 MMOL/L (3.5-5.1)
[2024-06-03 12:56] LABS: ANION GAP 16 (8-16); CHLORIDE 87 MMOL/L (99-107); SODIUM 131 MMOL/L (135-145)
[2024-06-03] MEDS ORDERED: NO HOME MEDS (13:07)
[2024-06-03] MEDS ORDERED: potassium Cl 40MEQ/270ML bag 250 ML IV PRN (13:25)
[2024-06-03] MEDS ORDERED: potassium Cl 40MEQ/1/2NS 520ml 520 ML IV PRN (13:25)
[2024-06-03] MEDS ORDERED: potassium Cl 20mEq/100mL bag 100 ML IV PRN (13:25)
[2024-06-03] MEDS ORDERED: magnesium sulf-water 4G/100mL 100 ML IV PRN ×2 (13:25→14:35)
[2024-06-03] MEDS ORDERED: magnesium sulf-water 2g/50mL 50 ML IV PRN ×2 (13:25→14:35)
[2024-06-03 13:54] LABS: BILIRUBIN,URINE SMALL (Neg); COLOR,URINE YELLOW (Yellow); GLUCOSE, URINE NEGATIVE (Neg); KETONES,URINE 15 mg/dl (Neg); LEUKOCYTE ESTERASE ,URINE NEGATIVE (Neg); NITRITES, URINE NEGATIVE (Neg); OCCULT BLOOD,URINE SMALL (Neg); PROTEIN,URINE 100 mg/dl (Neg); UROBILINOGEN,URINE 0.2 E.U/dL (0.2-1.0)
[2024-06-03 13:57] LABS: CLARITY,URINE SLIGHTLY CLOUDY (Clear); UA COLLECTION TYPE CLN CATCH MIDSTREAM
[2024-06-03 14:01] LABS: BACTERIA,URINE FEW /HPF (Neg); MUCUS STRANDS FEW /LPF (Neg); SQUAMOUS EPITHELIAL CELL,UR MODERATE /LPF (FEW); WBC,URINE 0-4 /HPF (0-4)
[2024-06-03] MEDS: potassium CL 10mEq/100ml bag 100 ML IV PRN (14:03)
[2024-06-03] MEDS: metoclopramide 5 mg/ml inj IV ONE (14:11)
[2024-06-03] MEDS: diphenhydrAMINE 50 mg/ml inj IV ONE (14:18)
[2024-06-03] MEDS ORDERED: potassium Cl 20 mEq SR tablet PO PRN (14:35)
[2024-06-03] MEDS ORDERED: acetaminophen 325mg tablet PO PRN ×2 (14:35)
[2024-06-03] MEDS ORDERED: bisacodyl 10mg suppository rectal RC PRN (14:35)
[2024-06-03] MEDS ORDERED: HYDROmorphone/PF 0.2 MG/ML SYRINGE IV PRN (14:35)
[2024-06-03] MEDS ORDERED: iohexol 350MG/ML 100ml bottle IV ONE ×2 (14:44→16:31)
[2024-06-03] MEDS: niCARDipine-NS 40mg/200ml IVPB 200 ML IV SCH (14:54)
[2024-06-03] MEDS: HYDROmorphone inj. 0.5 MG/0.5 ML DISP.SYRIN IV PRN (15:01)
[2024-06-03] MEDS: nicotine 21mg patch - 24 hr TD SCH (15:31)
[2024-06-03] MEDS: potassium Cl 40MEQ/1/2NS 520ml 520 ML IV PRN (19:12)
[2024-06-03] MEDS: normal saline 1000ml 1,000 ML IV SCH (19:13)
[2024-06-03] MEDS: heparin, porcine 5000 units/ml vial SQ SCH (19:18)
[2024-06-03 22:00] VITALS: BP 224/117; PULSE 95
[2024-06-03 22:15] VITALS: BP 201/119; PULSE 90
[2024-06-03 22:30] VITALS: BP 135/113; PULSE 91
[2024-06-03 22:45] VITALS: BP 169/96; PULSE 99
[2024-06-03 23:00] VITALS: BP 171/92; PULSE 89
[2024-06-03 23:30] VITALS: BP 174/90; PULSE 97
[2024-06-04] VITALS (30 sets, daily range): BP systolic 109–209; BP diastolic 72–135; PULSE 87–119; RESP 12–22; TEMP 97.6–98.5; O2SAT 90–97
[2024-06-04 07:21] LABS: BASOPHILS % (AUTO) 0.4 % (0-1); EOSINOPHILS # (AUTO) 0.1 X10'3 (0-0.9); HEMATOCRIT 37.7 % (35.0-45.0); HEMOGLOBIN 12.7 g/dl (12.0-16.0); LYMPHOCYTES # (AUTO) 1.3 X10'3 (1.1-4.8); LYMPHOCYTES % (AUTO) 16.3 % (21-51); MEAN CORPUSCULAR HGB CONC 33.6 g/dL (33.0-36.5); MEAN CORPUSCULAR VOLUME 83.4 FL (78-98); MEAN PLATELET VOLUME 8.5 FL (7.4-10.4); MONOCYTES # (AUTO) 0.8 X10'3 (0-0.9); NEUTROPHILS # (AUTO) 5.6 X10'3 (1.8-7.7); NEUTROPHILS % (AUTO) 72.3 % (42-75); PLATELET COUNT 277 X10'3 (140-440); RED BLOOD COUNT 4.53 X10'6 (4.20-5.60); RED CELL DISTRIBUTION WIDTH 13.6 % (11.5-14.5); WHITE BLOOD COUNT 7.8 X10'3 (4.5-11.0)
[2024-06-04 07:36] LABS: ALANINE AMINOTRANSFERASE 26 U/L (12-78); ALBUMIN 2.7 G/DL (3.4-5.0); ALBUMIN/GLOBULIN RATIO 0.7 (1.1-1.5); ALKALINE PHOSPHATASE 150 IU/L (46-116); ANION GAP 12 (8-16); ASPARTATE AMINO TRANSFERASE 37 U/L (10-37); BILIRUBIN,TOTAL 0.9 MG/DL (0.1-1.0); BLOOD UREA NITROGEN 12 MG/DL (7-18); BUN/CREATININE RATIO 12.1 (10.0-20.0); CALCIUM 8.1 MG/DL (8.5-10.1); CHLORIDE 95 MMOL/L (99-107); CREATININE 0.99 MG/DL (0.40-0.90); GLUCOSE 108 MG/DL (70-104); SODIUM 134 MMOL/L (135-145); TOTAL CARBON DIOXIDE 27.2 MMOL/L (24-32); TOTAL PROTEIN 6.8 G/DL (6.4-8.2); eCRCL 47 ML/MIN; eGFR 58 ML/MIN
[2024-06-04 07:37] LABS: CHOL/HDL RATIO 4.7 (0.00-4.99); CHOLESTEROL 211 MG/DL (0-200); HDL CHOLESTEROL 45 MG/DL (35-60); LDL CHOLESTEROL 121 MG/DL (50-100); TRIGLYCERIDES 176 MG/DL (20-135)
[2024-06-04 07:43] LABS: HEMOGLOBIN A1C 5.1 % (4.5-6.2)
[2024-06-04 07:44] LABS: POTASSIUM 2.4 MMOL/L (3.5-5.1)
[2024-06-04] MEDS ORDERED: aminophylline inj. 10 ML IV ONE (09:18)
[2024-06-04] MEDS: regadenoson 0.4mg/5ml syringe IV ONE (09:42)
[2024-06-04] MEDS: aminophylline 500mg/20ml vial IV ONE (10:00)
[2024-06-04] MEDS: potassium Cl 20 mEq SR tablet PO PRN (11:43)
[2024-06-04] MEDS: Potassium Cl inj 20 MEQ in normal saline 1000ml 990 ML IV SCH (13:05)
[2024-06-04] MEDS: hydrALAZINE 20mg/ml inj. IV PRN (13:06)
[2024-06-04] MEDS: HYDROcodone/acetaminophen 5mg/325mg tablet PO PRN (13:49)
[2024-06-05] VITALS (10 sets, daily range): BP systolic 121–155; BP diastolic 74–85; PULSE 82–106; RESP 15–22; TEMP 97–99.1; O2SAT 81–96
[2024-06-05] MEDS: potassium Cl 20mEq in NS 1,000 ML IV SCH (00:10)
[2024-06-05 06:30] LABS: APTT 21 SECONDS (22-32); PROTHROMBIN TIME 10.6 SECONDS (9.0-12.0)
[2024-06-05 06:50] LABS: ALANINE AMINOTRANSFERASE 28 U/L (12-78); ALBUMIN 2.5 G/DL (3.4-5.0); ALBUMIN/GLOBULIN RATIO 0.7 (1.1-1.5); ALKALINE PHOSPHATASE 139 IU/L (46-116); ANION GAP 7 (8-16); ASPARTATE AMINO TRANSFERASE 41 U/L (10-37); BILIRUBIN,TOTAL 0.6 MG/DL (0.1-1.0); BLOOD UREA NITROGEN 8 MG/DL (7-18); BUN/CREATININE RATIO 9.2 (10.0-20.0); CALCIUM 8.4 MG/DL (8.5-10.1); CHLORIDE 100 MMOL/L (99-107); CREATININE 0.87 MG/DL (0.40-0.90); GLUCOSE 89 MG/DL (70-104); SODIUM 134 MMOL/L (135-145); TOTAL CARBON DIOXIDE 26.8 MMOL/L (24-32); TOTAL PROTEIN 6.3 G/DL (6.4-8.2); eCRCL 53 ML/MIN; eGFR 67 ML/MIN
[2024-06-05 07:05] LABS: POTASSIUM 2.9 MMOL/L (3.5-5.1)
[2024-06-05 08:15] LABS: BASOPHILS # (AUTO) 0.1 X10'3 (0-0.2); BASOPHILS % (AUTO) 0.8 % (0-1); EOSINOPHILS # (AUTO) 0.1 X10'3 (0-0.9); EOSINOPHILS % (AUTO) 1.7 % (0-6); HEMOGLOBIN 12.2 g/dl (12.0-16.0); LYMPHOCYTES # (AUTO) 1.1 X10'3 (1.1-4.8); LYMPHOCYTES % (AUTO) 16.3 % (21-51); MEAN CORPUSCULAR HEMOGLOBIN 27.7 PG (27.0-31.0); MEAN CORPUSCULAR HGB CONC 33.1 g/dL (33.0-36.5); MEAN CORPUSCULAR VOLUME 83.7 FL (78-98); MEAN PLATELET VOLUME 8.1 FL (7.4-10.4); MONOCYTES # (AUTO) 0.5 X10'3 (0-0.9); MONOCYTES % (AUTO) 7.2 % (2-12); NEUTROPHILS # (AUTO) 5.1 X10'3 (1.8-7.7); PLATELET COUNT 280 X10'3 (140-440); RED BLOOD COUNT 4.42 X10'6 (4.20-5.60); RED CELL DISTRIBUTION WIDTH 13.7 % (11.5-14.5); WHITE BLOOD COUNT 6.9 X10'3 (4.5-11.0)
[2024-06-05] MEDS: atorvastatin 20mg tablet PO SCH (08:28)
[2024-06-05] MEDS: lisinopril 10 MG tablet PO SCH (08:28)
[2024-06-05] MEDS: potassium Cl 20 mEq SR tablet PO PRN (08:32)
[2024-06-05] MEDS: LORazepam 1 MG tablet PO PRN (08:48)
[2024-06-05 09:06] LABS: MAGNESIUM 1.4 MG/DL (1.5-2.4)
[2024-06-05] MEDS: magnesium Cl slow-release 64mg tablet PO PRN (10:23)
[2024-06-06] VITALS (9 sets, daily range): BP systolic 148–207; BP diastolic 80–127; PULSE 81–97; RESP 15–23; TEMP 97.6–97.9; O2SAT 93–98
[2024-06-06 07:27] LABS: BASOPHILS % (AUTO) 0.4 % (0-1); EOSINOPHILS # (AUTO) 0.1 X10'3 (0-0.9); EOSINOPHILS % (AUTO) 1.8 % (0-6); HEMATOCRIT 33.5 % (35.0-45.0); HEMOGLOBIN 11.1 g/dl (12.0-16.0); LYMPHOCYTES # (AUTO) 1.2 X10'3 (1.1-4.8); LYMPHOCYTES % (AUTO) 14.3 % (21-51); MEAN CORPUSCULAR HEMOGLOBIN 28.1 PG (27.0-31.0); MEAN CORPUSCULAR VOLUME 85.2 FL (78-98); MEAN PLATELET VOLUME 8.4 FL (7.4-10.4); MONOCYTES # (AUTO) 0.6 X10'3 (0-0.9); MONOCYTES % (AUTO) 6.8 % (2-12); NEUTROPHILS # (AUTO) 6.2 X10'3 (1.8-7.7); NEUTROPHILS % (AUTO) 76.7 % (42-75); PLATELET COUNT 261 X10'3 (140-440); RED BLOOD COUNT 3.94 X10'6 (4.20-5.60); RED CELL DISTRIBUTION WIDTH 14.3 % (11.5-14.5); WHITE BLOOD COUNT 8.1 X10'3 (4.5-11.0)
[2024-06-06] MEDS: metoprolol succinate 25mg (24-HOUR) SR. Tablet PO SCH (08:00)
[2024-06-06 08:01] LABS: ALANINE AMINOTRANSFERASE 23 U/L (12-78); ALBUMIN 2.4 G/DL (3.4-5.0); ALBUMIN/GLOBULIN RATIO 0.7 (1.1-1.5); ALKALINE PHOSPHATASE 132 IU/L (46-116); ANION GAP 7 (8-16); ASPARTATE AMINO TRANSFERASE 34 U/L (10-37); BILIRUBIN,TOTAL 0.3 MG/DL (0.1-1.0); BLOOD UREA NITROGEN 21 MG/DL (7-18); BUN/CREATININE RATIO 10.5 (10.0-20.0); CALCIUM 8.7 MG/DL (8.5-10.1); CHLORIDE 104 MMOL/L (99-107); GLUCOSE 76 MG/DL (70-104); MAGNESIUM 1.4 MG/DL (1.5-2.4); SODIUM 135 MMOL/L (135-145); TOTAL CARBON DIOXIDE 24.1 MMOL/L (24-32); TOTAL PROTEIN 5.9 G/DL (6.4-8.2); eCRCL 23 ML/MIN; eGFR 26 ML/MIN
[2024-06-06 08:04] LABS: POTASSIUM 6.1 MMOL/L (3.5-5.1)
[2024-06-06 11:28] LABS: ALBUMIN 2.6 G/DL (3.4-5.0); ANION GAP 5 (8-16); BLOOD UREA NITROGEN 20 MG/DL (7-18); BUN/CREATININE RATIO 9.8 (10.0-20.0); CALCIUM 8.8 MG/DL (8.5-10.1); CHLORIDE 106 MMOL/L (99-107); CREATININE 2.05 MG/DL (0.40-0.90); GLUCOSE 95 MG/DL (70-104); POTASSIUM 5.4 MMOL/L (3.5-5.1); SODIUM 136 MMOL/L (135-145); eCRCL 23 ML/MIN; eGFR 25 ML/MIN
[2024-06-06] MEDS: ringers solution, lacted 1,000 ML IV SCH (14:24)
[2024-06-06] MEDS: PERFLUTREN PROTEIN-A MICROSPHR (Optison) 0.22 MG/ML 3ML VIAL IV ONE (15:15)
[2024-06-06 15:25] LABS: ALANINE AMINOTRANSFERASE 19 U/L (12-78); ALBUMIN 2.2 G/DL (3.4-5.0); ALBUMIN/GLOBULIN RATIO 0.6 (1.1-1.5); ALKALINE PHOSPHATASE 131 IU/L (46-116); ANION GAP 6 (8-16); ASPARTATE AMINO TRANSFERASE 24 U/L (10-37); BILIRUBIN,TOTAL 0.3 MG/DL (0.1-1.0); BLOOD UREA NITROGEN 23 MG/DL (7-18); CALCIUM 8.6 MG/DL (8.5-10.1); CHLORIDE 105 MMOL/L (99-107); CHOL/HDL RATIO 3.4 (0.00-4.99); CHOLESTEROL 161 MG/DL (0-200); CREATININE 1.92 MG/DL (0.40-0.90); GLUCOSE 96 MG/DL (70-104); HDL CHOLESTEROL 48 MG/DL (35-60); LDL CHOLESTEROL 85 MG/DL (50-100); POTASSIUM 5.9 MMOL/L (3.5-5.1); SODIUM 136 MMOL/L (135-145); TOTAL CARBON DIOXIDE 24.7 MMOL/L (24-32); TOTAL PROTEIN 5.7 G/DL (6.4-8.2); TRIGLYCERIDES 134 MG/DL (20-135); eCRCL 24 ML/MIN; eGFR 27 ML/MIN
[2024-06-06] MEDS: aspirin 81mg, enteric-coated 1 TAB TABLET.DR PO SCH (15:49)
[2024-06-06] MEDS: docusate sod 100mg capsule PO ONE (15:49)
[2024-06-06] MEDS: clopidogrel 75mg tablet PO SCH (15:50)
[2024-06-06] MEDS: NIFEdipine XL 30mg tablet PO ONE ×2 (15:50→20:48)
[2024-06-06] MEDS: labetalol 100mg tablet PO SCH (16:00)
[2024-06-06 19:08] LABS: ALANINE AMINOTRANSFERASE 23 U/L (12-78); ALBUMIN 2.3 G/DL (3.4-5.0); ALBUMIN/GLOBULIN RATIO 0.6 (1.1-1.5); ALKALINE PHOSPHATASE 141 IU/L (46-116); ANION GAP 6 (8-16); ASPARTATE AMINO TRANSFERASE 28 U/L (10-37); BILIRUBIN,TOTAL 0.3 MG/DL (0.1-1.0); BLOOD UREA NITROGEN 23 MG/DL (7-18); CALCIUM 8.4 MG/DL (8.5-10.1); CHLORIDE 104 MMOL/L (99-107); CREATININE 1.91 MG/DL (0.40-0.90); GLUCOSE 81 MG/DL (70-104); POTASSIUM 5.7 MMOL/L (3.5-5.1); SODIUM 135 MMOL/L (135-145); TOTAL CARBON DIOXIDE 25.5 MMOL/L (24-32); TOTAL PROTEIN 5.9 G/DL (6.4-8.2); eCRCL 24 ML/MIN; eGFR 27 ML/MIN
[2024-06-06] MEDS ORDERED: NIFEdipine XL 30mg tablet PO ONE (20:05)
[2024-06-06] MEDS: CALCIUM GLUC 1gm/50ml NACL,iso 50 ML IV ONE (20:48)
[2024-06-06] MEDS: SODIUM ZIRCONIUM CYCLOSILICATE 10 GM POWD.PACK PO SCH (20:49)
[2024-06-06] MEDS: magnesium Cl slow-release 64mg tablet PO PRN (21:57)
[2024-06-07] VITALS (8 sets, daily range): BP systolic 131–175; BP diastolic 71–110; PULSE 85–97; RESP 16–26; TEMP 97–98.1; O2SAT 92–99
[2024-06-07] MEDS: LORazepam 2 mg/ml vial IV PRN (03:31)
[2024-06-07 04:46] LABS: URINE AMPHETAMINE SCREEN NEGATIVE (Neg); URINE BARBITUATE SCREEN NEGATIVE (Neg); URINE BENZODIAZEPINES SCREEN NEGATIVE (Neg); URINE CANNABINOID SCREEN NEGATIVE (Neg); URINE COCAINE SCREEN NEGATIVE (Neg); URINE METHADONE SCREEN NEGATIVE (Neg); URINE OPIATE SCREEN NEGATIVE (Neg); URINE PHENCYCLIDINE SCREEN NEGATIVE (Neg)
[2024-06-07 06:47] LABS: BASOPHILS % (AUTO) 0.3 % (0-1); EOSINOPHILS # (AUTO) 0.1 X10'3 (0-0.9); HEMATOCRIT 36.3 % (35.0-45.0); HEMOGLOBIN 11.9 g/dl (12.0-16.0); LYMPHOCYTES % (AUTO) 14.1 % (21-51); MEAN CORPUSCULAR HEMOGLOBIN 28.1 PG (27.0-31.0); MEAN CORPUSCULAR HGB CONC 32.8 g/dL (33.0-36.5); MEAN CORPUSCULAR VOLUME 85.5 FL (78-98); MEAN PLATELET VOLUME 8.3 FL (7.4-10.4); MONOCYTES # (AUTO) 0.4 X10'3 (0-0.9); MONOCYTES % (AUTO) 5.7 % (2-12); NEUTROPHILS # (AUTO) 5.8 X10'3 (1.8-7.7); NEUTROPHILS % (AUTO) 78.9 % (42-75); PLATELET COUNT 252 X10'3 (140-440); RED BLOOD COUNT 4.24 X10'6 (4.20-5.60); RED CELL DISTRIBUTION WIDTH 14.2 % (11.5-14.5); WHITE BLOOD COUNT 7.4 X10'3 (4.5-11.0)
[2024-06-07 07:13] LABS: ALANINE AMINOTRANSFERASE 24 U/L (12-78); ALBUMIN 2.4 G/DL (3.4-5.0); ALBUMIN/GLOBULIN RATIO 0.6 (1.1-1.5); ALKALINE PHOSPHATASE 135 IU/L (46-116); ANION GAP 10 (8-16); ASPARTATE AMINO TRANSFERASE 24 U/L (10-37); BILIRUBIN,TOTAL 0.4 MG/DL (0.1-1.0); BLOOD UREA NITROGEN 26 MG/DL (7-18); BUN/CREATININE RATIO 15.4 (10.0-20.0); CHLORIDE 105 MMOL/L (99-107); CREATININE 1.69 MG/DL (0.40-0.90); FREE T4 (FREE THYROXINE) 1.04 NG/DL (0.73-1.40); GLUCOSE 118 MG/DL (70-104); MAGNESIUM 1.1 MG/DL (1.5-2.4); POTASSIUM 4.7 MMOL/L (3.5-5.1); SODIUM 137 MMOL/L (135-145); THYROID STIMULATING HORMONE 4.14 ulU/ml (0.34-4.50); TOTAL CARBON DIOXIDE 22.5 MMOL/L (24-32); TOTAL PROTEIN 6.2 G/DL (6.4-8.2); eCRCL 27 ML/MIN; eGFR 31 ML/MIN
[2024-06-07] MEDS ORDERED: magnesium Cl slow-release 64mg tablet PO SCH (08:00)
[2024-06-07] MEDS: NIFEdipine XL 30mg tablet PO SCH (08:00)
[2024-06-07] MEDS ORDERED: amLODIPine 5mg tablet PO SCH (08:00)
[2024-06-07] MEDS ORDERED: metoprolol succinate 25mg (24-HOUR) SR. Tablet PO SCH (08:00)
[2024-06-07] MEDS: ondansetron/PF 4mg/2ml inj IV PRN (15:12)
[2024-06-07] MEDS: labetalol 100mg tablet PO SCH (19:27)
[2024-06-08] VITALS (8 sets, daily range): BP systolic 125–201; BP diastolic 73–117; PULSE 76–96; RESP 17–24; TEMP 96.9–98.4; O2SAT 94–97
[2024-06-08 07:17] LABS: BASOPHILS % (AUTO) 0.4 % (0-1); EOSINOPHILS # (AUTO) 0.2 X10'3 (0-0.9); EOSINOPHILS % (AUTO) 2.2 % (0-6); HEMATOCRIT 34.1 % (35.0-45.0); HEMOGLOBIN 11.2 g/dl (12.0-16.0); LYMPHOCYTES # (AUTO) 1.5 X10'3 (1.1-4.8); LYMPHOCYTES % (AUTO) 18.9 % (21-51); MEAN CORPUSCULAR HEMOGLOBIN 28.2 PG (27.0-31.0); MEAN CORPUSCULAR HGB CONC 32.8 g/dL (33.0-36.5); MEAN CORPUSCULAR VOLUME 86.1 FL (78-98); MEAN PLATELET VOLUME 8.2 FL (7.4-10.4); MONOCYTES # (AUTO) 0.5 X10'3 (0-0.9); MONOCYTES % (AUTO) 6.9 % (2-12); NEUTROPHILS # (AUTO) 5.5 X10'3 (1.8-7.7); NEUTROPHILS % (AUTO) 71.6 % (42-75); PLATELET COUNT 227 X10'3 (140-440); RED BLOOD COUNT 3.97 X10'6 (4.20-5.60); RED CELL DISTRIBUTION WIDTH 14.8 % (11.5-14.5); WHITE BLOOD COUNT 7.7 X10'3 (4.5-11.0)
[2024-06-08 07:37] LABS: ALANINE AMINOTRANSFERASE 22 U/L (12-78); ALBUMIN 2.3 G/DL (3.4-5.0); ALBUMIN/GLOBULIN RATIO 0.6 (1.1-1.5); ALKALINE PHOSPHATASE 112 IU/L (46-116); ANION GAP 4 (8-16); ASPARTATE AMINO TRANSFERASE 18 U/L (10-37); BILIRUBIN,TOTAL 0.4 MG/DL (0.1-1.0); BLOOD UREA NITROGEN 26 MG/DL (7-18); BUN/CREATININE RATIO 18.1 (10.0-20.0); CALCIUM 8.3 MG/DL (8.5-10.1); CHLORIDE 104 MMOL/L (99-107); CREATININE 1.44 MG/DL (0.40-0.90); GLUCOSE 90 MG/DL (70-104); MAGNESIUM 1.7 MG/DL (1.5-2.4); POTASSIUM 4.9 MMOL/L (3.5-5.1); SODIUM 135 MMOL/L (135-145); TOTAL CARBON DIOXIDE 27.1 MMOL/L (24-32); TOTAL PROTEIN 5.9 G/DL (6.4-8.2); eCRCL 32 ML/MIN; eGFR 37 ML/MIN
[2024-06-08] MEDS: labetalol 100mg tablet PO SCH (09:01)
[2024-06-08] MEDS: NIFEdipine XL 30mg tablet PO SCH (21:10)
[2024-06-09] VITALS (10 sets, daily range): BP systolic 110–211; BP diastolic 46–117; PULSE 74–89; RESP 13–21; TEMP 97.3–98.2; O2SAT 93–98
[2024-06-09] MEDS: labetalol 100mg tablet PO SCH ×2 (07:38→16:13)
[2024-06-09 09:09] LABS: BASOPHILS % (AUTO) 0.6 % (0-1); EOSINOPHILS # (AUTO) 0.2 X10'3 (0-0.9); HEMATOCRIT 32.8 % (35.0-45.0); HEMOGLOBIN 10.8 g/dl (12.0-16.0); LYMPHOCYTES # (AUTO) 1.2 X10'3 (1.1-4.8); LYMPHOCYTES % (AUTO) 18.6 % (21-51); MEAN CORPUSCULAR HEMOGLOBIN 28.2 PG (27.0-31.0); MEAN CORPUSCULAR HGB CONC 32.8 g/dL (33.0-36.5); MEAN CORPUSCULAR VOLUME 85.9 FL (78-98); MEAN PLATELET VOLUME 8.1 FL (7.4-10.4); MONOCYTES # (AUTO) 0.5 X10'3 (0-0.9); MONOCYTES % (AUTO) 8.6 % (2-12); NEUTROPHILS # (AUTO) 4.3 X10'3 (1.8-7.7); NEUTROPHILS % (AUTO) 69.2 % (42-75); PLATELET COUNT 212 X10'3 (140-440); RED BLOOD COUNT 3.82 X10'6 (4.20-5.60); RED CELL DISTRIBUTION WIDTH 14.5 % (11.5-14.5); WHITE BLOOD COUNT 6.2 X10'3 (4.5-11.0)
[2024-06-09 09:25] LABS: ALANINE AMINOTRANSFERASE 22 U/L (12-78); ALBUMIN/GLOBULIN RATIO 0.6 (1.1-1.5); ALKALINE PHOSPHATASE 93 IU/L (46-116); ANION GAP 6 (8-16); ASPARTATE AMINO TRANSFERASE 21 U/L (10-37); BILIRUBIN,TOTAL 0.3 MG/DL (0.1-1.0); BLOOD UREA NITROGEN 23 MG/DL (7-18); BUN/CREATININE RATIO 16.3 (10.0-20.0); CALCIUM 8.2 MG/DL (8.5-10.1); CHLORIDE 106 MMOL/L (99-107); CREATININE 1.41 MG/DL (0.40-0.90); GLUCOSE 84 MG/DL (70-104); POTASSIUM 4.7 MMOL/L (3.5-5.1); SODIUM 137 MMOL/L (135-145); TOTAL CARBON DIOXIDE 24.8 MMOL/L (24-32); TOTAL PROTEIN 5.5 G/DL (6.4-8.2); eCRCL 33 ML/MIN; eGFR 38 ML/MIN
[2024-06-09] MEDS: HYDROcodone/acetaminophen 10/325mg tab PO PRN (10:44)
[2024-06-09] MEDS ORDERED: NIFEdipine XL 30mg tablet PO PRN (12:45)
[2024-06-09] MEDS ORDERED: magnesium Cl slow-release 64mg tablet PO PRN (17:10)
[2024-06-09] MEDS ORDERED: potassium Cl 40MEQ/1/2NS 520ml 520 ML IV PRN (17:10)
[2024-06-09] MEDS ORDERED: potassium Cl 20 mEq SR tablet PO PRN ×2 (17:10)
[2024-06-09] MEDS ORDERED: magnesium sulf-water 2g/50mL 50 ML IV PRN (17:10)
[2024-06-10] VITALS (7 sets, daily range): BP systolic 137–184; BP diastolic 74–93; PULSE 72–79; RESP 14–18; TEMP 96.5–98.1; O2SAT 93–98
[2024-06-10] MEDS: labetalol 100mg tablet PO SCH (16:08)
[2024-06-10] MEDS: hydrALAZINE 25 MG tablet PO SCH (16:10)
[2024-06-10] MEDS: LORazepam 1 MG tablet PO ONE (21:02)
[2024-06-11] VITALS (7 sets, daily range): BP systolic 96–177; BP diastolic 48–82; PULSE 66–77; RESP 14–18; TEMP 97.1–98.7; O2SAT 94–97
[2024-06-11 23:43] LABS: TOTAL PROTEIN,URINE RANDOM 27.4 MG/DL
[2024-06-12] VITALS (8 sets, daily range): BP systolic 115–144; BP diastolic 43–84; PULSE 62–82; RESP 12–22; TEMP 97.3–98.8; O2SAT 95–98
[2024-06-12 08:53] LABS: BASOPHILS % (AUTO) 0.7 % (0-1); EOSINOPHILS # (AUTO) 0.1 X10'3 (0-0.9); EOSINOPHILS % (AUTO) 2.5 % (0-6); HEMATOCRIT 31.5 % (35.0-45.0); HEMOGLOBIN 10.3 g/dl (12.0-16.0); LYMPHOCYTES % (AUTO) 19.6 % (21-51); MEAN CORPUSCULAR HEMOGLOBIN 27.9 PG (27.0-31.0); MEAN CORPUSCULAR HGB CONC 32.6 g/dL (33.0-36.5); MEAN CORPUSCULAR VOLUME 85.5 FL (78-98); MEAN PLATELET VOLUME 7.8 FL (7.4-10.4); MONOCYTES # (AUTO) 0.5 X10'3 (0-0.9); MONOCYTES % (AUTO) 10.3 % (2-12); NEUTROPHILS # (AUTO) 3.3 X10'3 (1.8-7.7); NEUTROPHILS % (AUTO) 66.9 % (42-75); PLATELET COUNT 228 X10'3 (140-440); RED BLOOD COUNT 3.69 X10'6 (4.20-5.60); RED CELL DISTRIBUTION WIDTH 14.8 % (11.5-14.5); WHITE BLOOD COUNT 4.9 X10'3 (4.5-11.0)
[2024-06-12 09:07] LABS: ALBUMIN 2.5 G/DL (3.4-5.0); ANION GAP 7 (8-16); BLOOD UREA NITROGEN 22 MG/DL (7-18); BUN/CREATININE RATIO 18.8 (10.0-20.0); CALCIUM 8.7 MG/DL (8.5-10.1); CHLORIDE 108 MMOL/L (99-107); CREATININE 1.17 MG/DL (0.40-0.90); GLUCOSE 90 MG/DL (70-104); SODIUM 138 MMOL/L (135-145); TOTAL CARBON DIOXIDE 22.9 MMOL/L (24-32); eCRCL 40 ML/MIN; eGFR 48 ML/MIN
[2024-06-12 19:07] LABS: ALDOSTERONE 1.2 ng/dL (.)
[2024-06-13] VITALS (9 sets, daily range): BP systolic 117–174; BP diastolic 63–79; PULSE 71–91; RESP 16–24; TEMP 96.9–99.9; O2SAT 92–98
[2024-06-13] MEDS: LORazepam 1 MG tablet PO ONE (02:26)
[2024-06-13 07:14] LABS: HBSAG SCREEN Negative (Negative)
[2024-06-13 07:26] LABS: BASOPHILS % (AUTO) 0.4 % (0-1); EOSINOPHILS % (AUTO) 0.6 % (0-6); HEMATOCRIT 29.9 % (35.0-45.0); HEMOGLOBIN 10.1 g/dl (12.0-16.0); LYMPHOCYTES # (AUTO) 0.5 X10'3 (1.1-4.8); LYMPHOCYTES % (AUTO) 11.5 % (21-51); MEAN CORPUSCULAR HEMOGLOBIN 28.8 PG (27.0-31.0); MEAN CORPUSCULAR HGB CONC 33.6 g/dL (33.0-36.5); MEAN CORPUSCULAR VOLUME 85.8 FL (78-98); MEAN PLATELET VOLUME 7.6 FL (7.4-10.4); MONOCYTES # (AUTO) 0.3 X10'3 (0-0.9); MONOCYTES % (AUTO) 8.1 % (2-12); NEUTROPHILS # (AUTO) 3.2 X10'3 (1.8-7.7); NEUTROPHILS % (AUTO) 79.4 % (42-75); PLATELET COUNT 207 X10'3 (140-440); RED BLOOD COUNT 3.49 X10'6 (4.20-5.60); RED CELL DISTRIBUTION WIDTH 14.5 % (11.5-14.5)
[2024-06-13] MEDS: NIFEdipine XL 30mg tablet PO SCH (07:46)
[2024-06-13 07:50] LABS: ALBUMIN 2.4 G/DL (3.4-5.0); ANION GAP 12 (8-16); BLOOD UREA NITROGEN 21 MG/DL (7-18); BUN/CREATININE RATIO 16.9 (10.0-20.0); CALCIUM 8.7 MG/DL (8.5-10.1); CHLORIDE 104 MMOL/L (99-107); CREATININE 1.24 MG/DL (0.40-0.90); GLUCOSE 93 MG/DL (70-104); POTASSIUM 3.8 MMOL/L (3.5-5.1); SODIUM 137 MMOL/L (135-145); TOTAL CARBON DIOXIDE 20.9 MMOL/L (24-32); eCRCL 37 ML/MIN; eGFR 44 ML/MIN
[2024-06-13 09:08] LABS: ANTISTREPTOLYSIN O AB 186.8 IU/mL (0.0-200.0); COMPLEMENT C3, SERUM 170 mg/dL (82-167); COMPLEMENT C4, SERUM 34 mg/dL (12-38)
[2024-06-13 13:48] LABS: ANTINUCLEAR ANTIBODIES Negative (Negative)
[2024-06-13 15:14] LABS: A/G RATIO 0.7 (0.7-1.7); ALBUMIN 2.2 g/dL (2.9-4.4); ALPHA-1-GLOBULIN 0.4 g/dL (0.0-0.4); ALPHA-2-GLOBULIN 0.9 g/dL (0.4-1.0); BETA GLOBULIN 1.1 g/dL (0.7-1.3); GAMMA GLOBULIN 0.8 g/dL (0.4-1.8); GLOBULIN, TOTAL 3.2 g/dL (2.2-3.9); M-SPIKE Not Observed g/dL (Not Observed); PROTEIN, TOTAL, SERUM 5.4 g/dL (6.0-8.5)
[2024-06-14] VITALS (7 sets, daily range): BP systolic 123–189; BP diastolic 73–88; PULSE 68–76; RESP 15–20; TEMP 97.6–98.6; O2SAT 95–100
[2024-06-14 13:36] LABS: ATYPICAL PANCA <1:20 titer (Neg:<1:20); CYTOPLASMIC (C-ANCA) <1:20 titer (Neg:<1:20); PERINUCLEAR (P-ANCA) <1:20 titer (Neg:<1:20)
[2024-06-14 13:36] LABS: ALBUMIN, UR 31.8 % (.); ALPHA-1-GLOBULIN,UR 6.7 % (.); BETA GLOBULIN, UR 32.2 % (.); GAMMA GLOBULIN,UR 16.3 % (.); PROTEIN,TOTAL,URINE 16.6 mg/dL (Not Estab.)
[2024-06-15 02:00] VITALS: BP 150/87; PULSE 70; RESP 12; TEMP 98.6; O2SAT 97
[2024-06-15 07:00] VITALS: BP 189/94; PULSE 80; RESP 18; TEMP 97.3; O2SAT 96
[2024-06-15 11:00] VITALS: BP 165/97; PULSE 87; RESP 13; TEMP 98.9; O2SAT 100
[2024-06-15] MEDS ORDERED: ATOR20TA66 PO (12:56)
[2024-06-15] MEDS ORDERED: ASPI-1071 PO (12:56)
[2024-06-15] MEDS ORDERED: HYDR-3972 PO (13:03)
[2024-06-15] MEDS ORDERED: LABE100T8 PO (14:03)
[2024-06-15] MEDS ORDERED: NIFE-72 PO (14:03)
== END 2024-06-15 15:03 | disposition home health service (06) | DRG 45 ==
LOC: ER 11:24 → ED HOLD 14:37 → EDBEDREQ 20:32 → PCU 3S 21:10
PROVIDERS: ADMIT Internal Medicine; ATTEND Internal Medicine
PROC: B4201ZZ Computerized Tomography (CT Scan) of Abdominal Aorta using Low Osmolar Contrast (ICD-10-PCS; 2024-06-03)
PROC: B4241ZZ Computerized Tomography (CT Scan) of Superior Mesenteric Artery using Low Osmolar Contrast (ICD-10-PCS; 2024-06-03)
PROC: B4281ZZ Computerized Tomography (CT Scan) of Bilateral Renal Arteries using Low Osmolar Contrast (ICD-10-PCS; 2024-06-03)
PROC: B42C1ZZ Computerized Tomography (CT Scan) of Pelvic Arteries using Low Osmolar Contrast (ICD-10-PCS; 2024-06-03)
PROC: B42H1ZZ Computerized Tomography (CT Scan) of Bilateral Lower Extremity Arteries using Low Osmolar Contrast (ICD-10-PCS; 2024-06-03)
PROC: B4211ZZ Computerized Tomography (CT Scan) of Celiac Artery using Low Osmolar Contrast (ICD-10-PCS; 2024-06-03)
PROC: 4A02XM4 Measurement of Cardiac Total Activity, External Approach (ICD-10-PCS; principal; 2024-06-04)
PROC: 3E033HZ Introduction of Radioactive Substance into Peripheral Vein, Percutaneous Approach (ICD-10-PCS; 2024-06-04)
DX: I63.89 Other cerebral infarction (principal); I62.9 Nontraumatic intracranial hemorrhage, unspecified; N17.9 Acute kidney failure, unspecified; K55.1 Chronic vascular disorders of intestine; G81.94 Hemiplegia, unspecified affecting left nondominant side; I50.22 Chronic systolic (congestive) heart failure; I11.0 Hypertensive heart disease with heart failure; F32.9 Major depressive disorder, single episode, unspecified; R45.851 Suicidal ideations; I65.21 Occlusion and stenosis of right carotid artery; I16.1 Hypertensive emergency; F17.210 Nicotine dependence, cigarettes, uncomplicated; E87.6 Hypokalemia; I70.1 Atherosclerosis of renal artery; E87.5 Hyperkalemia; E83.42 Hypomagnesemia; F32.A Depression, unspecified; Z86.73 Personal history of transient ischemic attack (TIA), and cerebral infarction without residual deficits; Z88.0 Allergy status to penicillin; Z88.5 Allergy status to narcotic agent
CPT/HCPCS: 36415; 70450; 70544; 70551; 72141; 74174; 74176; 78452; 80048; 80053; 80061; 80305; 81001; 82088; 82570; 83036; 83605; 83615; 83690; 83735; 84132; 84145; 84155; 84156; 84165; 84166; 84244; 84439; 84443; 85025; 85610; 85651; 85730; 86038; 86060; 86160; 86256; 87040; 87081; 87340; 93005; 93017; 93306; 93880; 97110; 97112; 97116; 97161; 97162; 97530; 99285; A4615; A4620; A6258; A6449; A9500; G0378; J0280; J0360; J0610; J1170; J1200; J1644; J2060; J2270; J2405; J2765; J2785; J3480; J3490; J7030; J7040; J7120; Q9967

== ENCOUNTER 2024-08-30 20:49 | Inpatient (IN) | payer MEDICAID ==
[~2024-08-30] VITALS: Ht 154.9 cm; Wt 50.7 kg
[~2024-08-30 20:49] MED LIST changes: +ASPI-1071 PO; +ATOR20TA66 PO; +LABE100T8 PO; +NIFE-72 PO; +NO HOME MEDS; -QUET100T34 PO
[2024-08-30 21:25] LABS: BASOPHILS # (AUTO) 0.1 X10'3 (0-0.2); BASOPHILS % (AUTO) 1.1 % (0-1); EOSINOPHILS # (AUTO) 0.2 X10'3 (0-0.9); EOSINOPHILS % (AUTO) 2.8 % (0-6); HEMATOCRIT 41.3 % (35.0-45.0); HEMOGLOBIN 14.6 g/dl (12.0-16.0); LYMPHOCYTES % (AUTO) 18.3 % (21-51); MEAN CORPUSCULAR HGB CONC 35.4 g/dL (33.0-36.5); MONOCYTES # (AUTO) 0.5 X10'3 (0-0.9); MONOCYTES % (AUTO) 8.8 % (2-12); NEUTROPHILS # (AUTO) 3.9 X10'3 (1.8-7.7); PLATELET COUNT 282 X10'3 (140-440); RED BLOOD COUNT 5.04 X10'6 (4.20-5.60); RED CELL DISTRIBUTION WIDTH 14.1 % (11.5-14.5); WHITE BLOOD COUNT 5.6 X10'3 (4.5-11.0)
[2024-08-30 21:46] LABS: ALANINE AMINOTRANSFERASE 12 U/L (12-78); ALBUMIN 3.7 G/DL (3.4-5.0); ALBUMIN/GLOBULIN RATIO 0.9 (1.1-1.5); ALKALINE PHOSPHATASE 124 IU/L (46-116); ANION GAP 14 (8-16); ASPARTATE AMINO TRANSFERASE 21 U/L (10-37); BILIRUBIN,TOTAL 1.3 MG/DL (0.1-1.0); BLOOD UREA NITROGEN 16 MG/DL (7-18); BUN/CREATININE RATIO 14.5 (10.0-20.0); CALCIUM 10.1 MG/DL (8.5-10.1); CHLORIDE 87 MMOL/L (99-107); GLUCOSE 127 MG/DL (70-104); SODIUM 130 MMOL/L (135-145); THYROID STIMULATING HORMONE 4.18 ulU/ml (0.34-4.50); TOTAL CARBON DIOXIDE 28.8 MMOL/L (24-32); TOTAL PROTEIN 7.7 G/DL (6.4-8.2); eCRCL 42 ML/MIN; eGFR 51 ML/MIN
[2024-08-30 22:05] LABS: ETHANOL < 10 MG/DL (<10)
[2024-08-30 22:08] LABS: POTASSIUM 1.9 MMOL/L (3.5-5.1)
[2024-08-30] MEDS: hydrALAZINE 20mg/ml inj. IV ONE (22:16)
[2024-08-30] MEDS ORDERED: diltiazem-NS 100mg/100ml 100 ML IV SCH (22:25)
[2024-08-30 22:33] LABS: MAGNESIUM 1.4 MG/DL (1.5-2.4)
[2024-08-30] MEDS: potassium Cl 20 mEq SR tablet PO ONE (22:45)
[2024-08-30] MEDS: magnesium sulf-water 2g/50mL 50 ML IV ONE (22:47)
[2024-08-30] MEDS: aspirin 325mg tablet PO ONE (22:48)
[2024-08-30] MEDS: potassium Cl 40MEQ/1/2NS 520ml 520 ML IV SCH (23:00)
[2024-08-31] MEDS: enoxaparin 100mg/ml syringe SUBCUT ONE (00:39)
[2024-08-31] MEDS: enoxaparin 60mg/0.6ml syringe SUBCUT ONE (00:42)
[2024-08-31] MEDS: hydrALAZINE 20mg/ml inj. IV ONE (01:10)
[2024-08-31] MEDS ORDERED: magnesium Cl slow-release 64mg tablet PO PRN ×2 (03:55→04:05)
[2024-08-31] MEDS ORDERED: magnesium sulf-water 4G/100mL 100 ML IV PRN ×2 (03:55→04:05)
[2024-08-31] MEDS ORDERED: ondansetron/PF 4mg/2ml inj IV PRN (03:55)
[2024-08-31] MEDS ORDERED: potassium Cl 20 mEq SR tablet PO PRN ×4 (03:55→04:05)
[2024-08-31] MEDS ORDERED: potassium Cl 40MEQ/1/2NS 520ml 520 ML IV PRN ×2 (03:55→04:05)
[2024-08-31] MEDS ORDERED: mag hydrox/Alum hydrox/simeth 30ml oral suspension PO PRN (03:55)
[2024-08-31] MEDS ORDERED: magnesium sulf-water 2g/50mL 50 ML IV PRN ×2 (03:55→04:05)
[2024-08-31] MEDS: niCARDipine-NS 40mg/200ml IVPB 200 ML IV SCH (03:57)
[2024-08-31] MEDS: labetalol 100mg tablet PO SCH (04:39)
[2024-08-31 06:30] LABS: ALBUMIN 2.6 G/DL (3.4-5.0); ANION GAP 8 (8-16); BLOOD UREA NITROGEN 14 MG/DL (7-18); BUN/CREATININE RATIO 15.7 (10.0-20.0); CHLORIDE 98 MMOL/L (99-107); CREATININE 0.89 MG/DL (0.40-0.90); GLUCOSE 135 MG/DL (70-104); POTASSIUM 3.5 MMOL/L (3.5-5.1); SODIUM 132 MMOL/L (135-145); TOTAL CARBON DIOXIDE 26.1 MMOL/L (24-32); eCRCL 52 ML/MIN; eGFR 65 ML/MIN
[2024-08-31] MEDS: normal saline 1000ml 1,000 ML IV SCH (06:57)
[2024-08-31 06:58] LABS: APTT 28 SECONDS (22-32); INR 1.1 INR; PROTHROMBIN TIME 11.2 SECONDS (9.0-12.0)
[2024-08-31 07:07] LABS: HEMOGLOBIN A1C 4.3 % (4.5-6.2)
[2024-08-31] MEDS: K and/or MAG REPLACEMENT MC SCH ×2 (07:28)
[2024-08-31 07:32] LABS: MAGNESIUM 1.7 MG/DL (1.5-2.4); PHOSPHORUS 1.8 MG/DL (2.3-4.5); POTASSIUM 3.8 MMOL/L (3.5-5.1); THYROID STIMULATING HORMONE 1.97 ulU/ml (0.34-4.50)
[2024-08-31 07:55] LABS: PRO BRAIN NATRIURETIC PEPTIDE > 30000 PG/ML (0-125)
[2024-08-31] MEDS: docusate sod 100mg capsule PO SCH (08:00)
[2024-08-31] MEDS: pantoprazole 40mg Tablet.DR PO SCH (08:35)
[2024-08-31] MEDS: nicotine 21mg patch - 24 hr TD SCH (08:36)
[2024-08-31] MEDS: folic acid 1mg tablet PO SCH (08:36)
[2024-08-31] MEDS: atorvastatin 20mg tablet PO SCH (08:36)
[2024-08-31] MEDS: NIFEdipine XL 30mg tablet PO SCH (08:36)
[2024-08-31] MEDS: thiamine 100mg tablet PO SCH (08:36)
[2024-08-31] MEDS: aspirin 81mg, enteric-coated 1 TAB TABLET.DR PO SCH (08:36)
[2024-08-31] MEDS: multivitamins, therapeutics tablet PO SCH (08:36)
[2024-08-31] MEDS: lactose-reduced food (Ensure Enlive) - 237ml bottle PO SCH (08:37)
[2024-08-31] MEDS: HYDROcodone/acetaminophen 10/325mg tab PO PRN (10:55)
[2024-08-31] MEDS: dextrose 5%-1/2 normal saline 1,000 ML IV ONE (12:01)
[2024-08-31] MEDS: morphine 4 MG/ML inj SYRINge IV PRN (12:03)
[2024-08-31 17:38] LABS: BILIRUBIN,URINE SMALL (Neg); CLARITY,URINE CLEAR (Clear); COLOR,URINE YELLOW (Yellow); GLUCOSE, URINE NEGATIVE (Neg); KETONES,URINE 15 mg/dl (Neg); LEUKOCYTE ESTERASE ,URINE NEGATIVE (Neg); NITRITES, URINE NEGATIVE (Neg); OCCULT BLOOD,URINE NEGATIVE (Neg); PROTEIN,URINE 100 mg/dl (Neg); UROBILINOGEN,URINE 0.2 E.U/dL (0.2-1.0)
[2024-08-31 17:47] LABS: UA COLLECTION TYPE STRAIGHT CATH
[2024-08-31 17:49] LABS: BACTERIA,URINE NONE SEEN /HPF (Neg); RBC,URINE 0-2 /HPF (0-2); SQUAMOUS EPITHELIAL CELL,UR NONE SEEN /LPF (FEW); WBC,URINE NONE SEEN /HPF (0-4)
[2024-08-31 17:50] LABS: URINE AMPHETAMINE SCREEN NEGATIVE (Neg); URINE BARBITUATE SCREEN NEGATIVE (Neg); URINE BENZODIAZEPINES SCREEN NEGATIVE (Neg); URINE CANNABINOID SCREEN NEGATIVE (Neg); URINE COCAINE SCREEN NEGATIVE (Neg); URINE METHADONE SCREEN NEGATIVE (Neg); URINE OPIATE SCREEN POSITIVE (Neg); URINE PHENCYCLIDINE SCREEN NEGATIVE (Neg)
[2024-08-31] MEDS ORDERED: ONDA-245 PO (18:11)
[2024-08-31] MEDS ORDERED: LOSA50TA64 PO (18:11)
[2024-08-31 22:00] VITALS: BP 128/88; PULSE 76; RESP 22; TEMP 97.7; O2SAT 96
[2024-09-01] VITALS (7 sets, daily range): BP systolic 104–140; BP diastolic 63–92; PULSE 73–96; RESP 12–24; TEMP 97.4–98.2; O2SAT 92–99
[2024-09-01 08:46] LABS: ALBUMIN 2.8 G/DL (3.4-5.0); ALBUMIN/GLOBULIN RATIO 0.9 (1.1-1.5); ALKALINE PHOSPHATASE 84 IU/L (46-116); ANION GAP 9 (8-16); ASPARTATE AMINO TRANSFERASE 17 U/L (10-37); BILIRUBIN,TOTAL 0.6 MG/DL (0.1-1.0); BLOOD UREA NITROGEN 21 MG/DL (7-18); BUN/CREATININE RATIO 21.2 (10.0-20.0); CALCIUM 9.5 MG/DL (8.5-10.1); CHLORIDE 98 MMOL/L (99-107); CHOL/HDL RATIO 2.6 (0.00-4.99); CHOLESTEROL 142 MG/DL (0-200); CREATININE 0.99 MG/DL (0.40-0.90); GLUCOSE 79 MG/DL (70-104); HDL CHOLESTEROL 55 MG/DL (35-60); LDL CHOLESTEROL 68 MG/DL (50-100); POTASSIUM 3.5 MMOL/L (3.5-5.1); SODIUM 131 MMOL/L (135-145); TOTAL PROTEIN 5.9 G/DL (6.4-8.2); TRIGLYCERIDES 141 MG/DL (20-135); eCRCL 47 ML/MIN; eGFR 58 ML/MIN
[2024-09-01 08:51] LABS: BASOPHILS # (AUTO) 0.1 X10'3 (0-0.2); BASOPHILS % (AUTO) 1.1 % (0-1); EOSINOPHILS # (AUTO) 0.2 X10'3 (0-0.9); EOSINOPHILS % (AUTO) 3.2 % (0-6); HEMATOCRIT 30.2 % (35.0-45.0); HEMOGLOBIN 10.3 g/dl (12.0-16.0); LYMPHOCYTES # (AUTO) 1.3 X10'3 (1.1-4.8); LYMPHOCYTES % (AUTO) 24.4 % (21-51); MEAN CORPUSCULAR HEMOGLOBIN 29.2 PG (27.0-31.0); MEAN PLATELET VOLUME 8.8 FL (7.4-10.4); MONOCYTES # (AUTO) 0.4 X10'3 (0-0.9); MONOCYTES % (AUTO) 7.8 % (2-12); NEUTROPHILS # (AUTO) 3.5 X10'3 (1.8-7.7); NEUTROPHILS % (AUTO) 63.5 % (42-75); PLATELET COUNT 224 X10'3 (140-440); RED BLOOD COUNT 3.51 X10'6 (4.20-5.60); RED CELL DISTRIBUTION WIDTH 15.1 % (11.5-14.5); WHITE BLOOD COUNT 5.5 X10'3 (4.5-11.0)
[2024-09-01 09:01] LABS: ALANINE AMINOTRANSFERASE < 6 U/L (12-78)
[2024-09-01] MEDS ORDERED: aminophylline 250mg/10ml inj. IV PRN (19:10)
[2024-09-01] MEDS ORDERED: nitroGLYCERIN 0.4mg SUBLingual tab SL PRN (19:10)
[2024-09-02] VITALS (16 sets, daily range): BP systolic 116–192; BP diastolic 70–112; PULSE 84–115; RESP 14–32; TEMP 97.1–98.2; O2SAT 90–99
[2024-09-02] MEDS: metoprolol tartrate 1mg/ml inj IV PRN (07:00)
[2024-09-02 07:21] LABS: BASOPHILS # (AUTO) 0.1 X10'3 (0-0.2); BASOPHILS % (AUTO) 0.6 % (0-1); EOSINOPHILS # (AUTO) 0.4 X10'3 (0-0.9); EOSINOPHILS % (AUTO) 3.9 % (0-6); HEMATOCRIT 31.8 % (35.0-45.0); LYMPHOCYTES % (AUTO) 11.1 % (21-51); MEAN CORPUSCULAR HEMOGLOBIN 29.7 PG (27.0-31.0); MEAN CORPUSCULAR HGB CONC 34.5 g/dL (33.0-36.5); MEAN CORPUSCULAR VOLUME 86.1 FL (78-98); MEAN PLATELET VOLUME 9.4 FL (7.4-10.4); MONOCYTES # (AUTO) 0.5 X10'3 (0-0.9); MONOCYTES % (AUTO) 5.9 % (2-12); NEUTROPHILS # (AUTO) 7.3 X10'3 (1.8-7.7); NEUTROPHILS % (AUTO) 78.5 % (42-75); PLATELET COUNT 293 X10'3 (140-440); RED CELL DISTRIBUTION WIDTH 15.2 % (11.5-14.5); WHITE BLOOD COUNT 9.3 X10'3 (4.5-11.0)
[2024-09-02 07:40] LABS: ALANINE AMINOTRANSFERASE 9 U/L (12-78); ALBUMIN 2.9 G/DL (3.4-5.0); ALBUMIN/GLOBULIN RATIO 0.8 (1.1-1.5); ALKALINE PHOSPHATASE 98 IU/L (46-116); ANION GAP 10 (8-16); ASPARTATE AMINO TRANSFERASE 15 U/L (10-37); BILIRUBIN,TOTAL 0.6 MG/DL (0.1-1.0); BLOOD UREA NITROGEN 30 MG/DL (7-18); BUN/CREATININE RATIO 25.9 (10.0-20.0); CALCIUM 9.6 MG/DL (8.5-10.1); CHLORIDE 99 MMOL/L (99-107); CREATININE 1.16 MG/DL (0.40-0.90); GLUCOSE 156 MG/DL (70-104); SODIUM 133 MMOL/L (135-145); TOTAL CARBON DIOXIDE 24.3 MMOL/L (24-32); TOTAL PROTEIN 6.4 G/DL (6.4-8.2); eCRCL 40 ML/MIN; eGFR 48 ML/MIN
[2024-09-02] MEDS: regadenoson 0.4mg/5ml syringe IV PRN (09:33)
[2024-09-03] VITALS (9 sets, daily range): BP systolic 88–155; BP diastolic 56–112; PULSE 68–100; RESP 15–19; TEMP 97.3–98.4; O2SAT 90–99
[2024-09-03] MEDS: labetalol 100mg tablet PO SCH (05:22)
[2024-09-03] MEDS: hydrALAZINE 20mg/ml inj. IV ONE (05:42)
[2024-09-03 06:21] LABS: HEMATOCRIT 29.4 % (35.0-45.0); MEAN PLATELET VOLUME 9.9 FL (7.4-10.4); WHITE BLOOD COUNT 7.7 X10'3 (4.5-11.0)
[2024-09-03 06:24] LABS: BASOPHILS % (AUTO) 0.6 % (0-1); EOSINOPHILS # (AUTO) 0.2 X10'3 (0-0.9); EOSINOPHILS % (AUTO) 2.9 % (0-6); LYMPHOCYTES # (AUTO) 0.9 X10'3 (1.1-4.8); LYMPHOCYTES % (AUTO) 11.3 % (21-51); MEAN CORPUSCULAR HGB CONC 33.9 g/dL (33.0-36.5); MEAN CORPUSCULAR VOLUME 85.6 FL (78-98); MONOCYTES # (AUTO) 0.7 X10'3 (0-0.9); MONOCYTES % (AUTO) 8.9 % (2-12); NEUTROPHILS # (AUTO) 5.9 X10'3 (1.8-7.7); NEUTROPHILS % (AUTO) 76.3 % (42-75); PLATELET COUNT 228 X10'3 (140-440); RED BLOOD COUNT 3.43 X10'6 (4.20-5.60); RED CELL DISTRIBUTION WIDTH 15.2 % (11.5-14.5)
[2024-09-03 07:00] LABS: ALANINE AMINOTRANSFERASE 12 U/L (12-78); ALBUMIN 2.5 G/DL (3.4-5.0); ALBUMIN/GLOBULIN RATIO 0.7 (1.1-1.5); ALKALINE PHOSPHATASE 98 IU/L (46-116); ANION GAP 9 (8-16); ASPARTATE AMINO TRANSFERASE 20 U/L (10-37); BILIRUBIN,TOTAL 0.5 MG/DL (0.1-1.0); BLOOD UREA NITROGEN 39 MG/DL (7-18); BUN/CREATININE RATIO 35.5 (10.0-20.0); CALCIUM 9.2 MG/DL (8.5-10.1); CHLORIDE 102 MMOL/L (99-107); GLUCOSE 125 MG/DL (70-104); POTASSIUM 4.3 MMOL/L (3.5-5.1); SODIUM 136 MMOL/L (135-145); TOTAL CARBON DIOXIDE 25.1 MMOL/L (24-32); eCRCL 42 ML/MIN; eGFR 51 ML/MIN
[2024-09-03] MEDS: losartan 50mg tablet PO SCH (09:07)
[2024-09-03] MEDS ORDERED: diatr meglu/diatrizoate 30ml oral sol.-(3 dose) bottle PO SCH (11:20)
[2024-09-03] MEDS: clindamycin 600mg/D5W 50ml 50 ML IV ONE (11:30)
[2024-09-03] MEDS: metoprolol succinate 25mg (24-HOUR) SR. Tablet PO SCH (12:00)
[2024-09-03] MEDS: magnesium hydroxide 30ml (MOM) UD suspension PO PRN (12:55)
[2024-09-03 20:02] LABS: ABG HCO3 23.3 mmol/L (21.0-28.0); ABG OXYGEN SATURATION 95.5 % (94.0-98.0); ABG PCO2 (T) 28.5 mmHg (32.0-45.0); ABG PO2 (T) 70.6 mmHg (83.0-108.0); ALLEN'S TEST Modified; FCOHb 0.2 % (0.5-1.5); FHHb 4.5 % (0.0-5.0); FMetHb 0.3 % (0.0-1.5); MODE ra; PATIENT TEMPERATURE 36.9; TOTAL HEMOGLOBIN 9.3 G/dl (12.0-16.0)
[2024-09-03 20:06] LABS: BASOPHILS % (AUTO) 0.5 % (0-1); EOSINOPHILS # (AUTO) 0.2 X10'3 (0-0.9); EOSINOPHILS % (AUTO) 2.8 % (0-6); HEMATOCRIT 27.3 % (35.0-45.0); HEMOGLOBIN 9.1 g/dl (12.0-16.0); LYMPHOCYTES # (AUTO) 1.2 X10'3 (1.1-4.8); LYMPHOCYTES % (AUTO) 21.3 % (21-51); MEAN CORPUSCULAR HEMOGLOBIN 28.8 PG (27.0-31.0); MEAN CORPUSCULAR HGB CONC 33.5 g/dL (33.0-36.5); MEAN CORPUSCULAR VOLUME 85.9 FL (78-98); MEAN PLATELET VOLUME 9.3 FL (7.4-10.4); MONOCYTES # (AUTO) 0.7 X10'3 (0-0.9); MONOCYTES % (AUTO) 12.8 % (2-12); NEUTROPHILS # (AUTO) 3.4 X10'3 (1.8-7.7); NEUTROPHILS % (AUTO) 62.6 % (42-75); PLATELET COUNT 205 X10'3 (140-440); RED BLOOD COUNT 3.18 X10'6 (4.20-5.60); RED CELL DISTRIBUTION WIDTH 15.5 % (11.5-14.5); WHITE BLOOD COUNT 5.4 X10'3 (4.5-11.0)
[2024-09-03] MEDS: normal saline 250ml IV soln 250 ML IV ONE (20:10)
[2024-09-03 20:13] LABS: ALBUMIN 2.3 G/DL (3.4-5.0); ANION GAP 5 (8-16); BLOOD UREA NITROGEN 41 MG/DL (7-18); BUN/CREATININE RATIO 36.3 (10.0-20.0); CHLORIDE 103 MMOL/L (99-107); CREATININE 1.13 MG/DL (0.40-0.90); GLUCOSE 97 MG/DL (70-104); POTASSIUM 4.7 MMOL/L (3.5-5.1); SODIUM 137 MMOL/L (135-145); eCRCL 41 ML/MIN; eGFR 49 ML/MIN
[2024-09-03 20:38] LABS: BILIRUBIN,URINE NEGATIVE (Neg); CLARITY,URINE SLIGHTLY CLOUDY (Clear); COLOR,URINE YELLOW (Yellow); GLUCOSE, URINE NEGATIVE (Neg); KETONES,URINE TRACE mg/dl (Neg); LEUKOCYTE ESTERASE ,URINE NEGATIVE (Neg); NITRITES, URINE NEGATIVE (Neg); OCCULT BLOOD,URINE NEGATIVE (Neg); PH,URINE 5.5 (4.8-8.0); PROTEIN,URINE TRACE mg/dl (Neg); UROBILINOGEN,URINE 0.2 E.U/dL (0.2-1.0)
[2024-09-03 20:46] LABS: UA COLLECTION TYPE FOLEY CATH
[2024-09-03 20:49] LABS: SQUAMOUS EPITHELIAL CELL,UR MODERATE /LPF (FEW)
[2024-09-03 20:50] LABS: BACTERIA,URINE 1+ /HPF (Neg); RBC,URINE NONE SEEN /HPF (0-2); WBC,URINE 0-4 /HPF (0-4)
[2024-09-03 20:51] LABS: MUCUS STRANDS FEW /LPF (Neg); TRANSITIONAL EPI CELLS,URINE FEW /HPF
[2024-09-03] MEDS ORDERED: diatrozoate meglu/diatrozoate sod (37% iodine) 120ML oral solution PO ONE (21:00)
[2024-09-03] MEDS: normal saline 1000ml 1,000 ML IV SCH (21:48)
[2024-09-04] VITALS (24 sets, daily range): BP systolic 131–201; BP diastolic 81–109; PULSE 64–87; RESP 14–24; TEMP 97.3; O2SAT 91–99
[2024-09-04] MEDS: diatr meglu/diatrizoate 30ml oral sol.-(3 dose) bottle PO SCH (04:30)
[2024-09-04 06:39] LABS: BASOPHILS % (AUTO) 0.7 % (0-1); EOSINOPHILS # (AUTO) 0.3 X10'3 (0-0.9); EOSINOPHILS % (AUTO) 5.3 % (0-6); HEMATOCRIT 26.8 % (35.0-45.0); HEMOGLOBIN 9.1 g/dl (12.0-16.0); LYMPHOCYTES # (AUTO) 0.9 X10'3 (1.1-4.8); LYMPHOCYTES % (AUTO) 18.3 % (21-51); MEAN CORPUSCULAR HEMOGLOBIN 29.3 PG (27.0-31.0); MEAN CORPUSCULAR HGB CONC 33.9 g/dL (33.0-36.5); MEAN CORPUSCULAR VOLUME 86.5 FL (78-98); MEAN PLATELET VOLUME 9.4 FL (7.4-10.4); MONOCYTES # (AUTO) 0.6 X10'3 (0-0.9); MONOCYTES % (AUTO) 11.7 % (2-12); NEUTROPHILS # (AUTO) 3.3 X10'3 (1.8-7.7); PLATELET COUNT 205 X10'3 (140-440); RED CELL DISTRIBUTION WIDTH 15.9 % (11.5-14.5); WHITE BLOOD COUNT 5.1 X10'3 (4.5-11.0)
[2024-09-04 07:00] LABS: ALANINE AMINOTRANSFERASE 12 U/L (12-78); ALBUMIN 2.3 G/DL (3.4-5.0); ALBUMIN/GLOBULIN RATIO 0.7 (1.1-1.5); ALKALINE PHOSPHATASE 84 IU/L (46-116); ANION GAP 5 (8-16); ASPARTATE AMINO TRANSFERASE 17 U/L (10-37); BILIRUBIN,TOTAL 0.4 MG/DL (0.1-1.0); BLOOD UREA NITROGEN 34 MG/DL (7-18); BUN/CREATININE RATIO 30.4 (10.0-20.0); CALCIUM 8.9 MG/DL (8.5-10.1); CHLORIDE 104 MMOL/L (99-107); CREATININE 1.12 MG/DL (0.40-0.90); GLUCOSE 86 MG/DL (70-104); POTASSIUM 4.4 MMOL/L (3.5-5.1); SODIUM 137 MMOL/L (135-145); TOTAL CARBON DIOXIDE 27.6 MMOL/L (24-32); TOTAL PROTEIN 5.8 G/DL (6.4-8.2); eCRCL 41 ML/MIN; eGFR 50 ML/MIN
[2024-09-04] MEDS ORDERED: heparin 10,000 units/1 ML INJ ONE (07:32)
[2024-09-04] MEDS: hydrALAZINE 20mg/ml inj. IV ONE ×2 (08:54→18:30)
[2024-09-04] MEDS ORDERED: iohexol 300mg/ml 100ml inj. ONE (10:07)
[2024-09-04] MEDS ORDERED: morphine 4 MG/ML inj SYRINge IV PRN (11:25)
[2024-09-04] MEDS ORDERED: morphine 2 MG/ML inj. syringe IV PRN (11:25)
[2024-09-04] MEDS ORDERED: proCHLORperazine 10 MG/2 ml inj IV PRN (11:25)
[2024-09-04] MEDS ORDERED: ondansetron/PF 4mg/2ml inj IV PRN (11:25)
[2024-09-04] MEDS ORDERED: meperidine/PF 25mg/ml syringe IV PRN ×3 (11:25)
[2024-09-04] MEDS ORDERED: ringers solution, lacted 1,000 ML IV SCH (11:25)
[2024-09-04] MEDS ORDERED: propofol inj 20 ML IV ONE (11:28)
[2024-09-04] MEDS ORDERED: fentaNYL /PF 50mcg/ml 5ml ampule ONE (11:28)
[2024-09-04] MEDS ORDERED: midazolam 1 mg/ML 2ml injection ONE (11:28)
[2024-09-04] MEDS ORDERED: sevoflurane 250ml liquid IH ONE (11:42)
[2024-09-04] MEDS ORDERED: ceFAZolin 1000mg inj ONE ×2 (12:25)
[2024-09-04] MEDS ORDERED: rocuronium 10mg/ml inj IV ONE ×2 (12:29)
[2024-09-04] MEDS ORDERED: heparin 1,000unit/ml 10ml vial 10 ML ONE (12:53)
[2024-09-04] MEDS ORDERED: glycopyrrolate 0.2mg/ml inj ONE (15:01)
[2024-09-04] MEDS ORDERED: neostigmine methylsulfate 1 MG/ML 10ml vial ONE (15:01)
[2024-09-04] MEDS ORDERED: sugammadex 200mg/2ml injection IV ONE (15:21)
[2024-09-04 15:56] LABS: ABG BASE EXCESS -0.6 mmol/L (-2.0-3.0); ABG HCO3 23.6 mmol/L (21.0-28.0); ABG OXYGEN SATURATION 98.8 % (94.0-98.0); ABG PCO2 (T) 36.3 mmHg (32.0-45.0); ABG PH (T) 7.428 (7.350-7.450); ABG PO2 (T) 123.8 mmHg (83.0-108.0); FCOHb 0.1 % (0.5-1.5); FHHb 1.2 % (0.0-5.0); FLOW 6 L/min; FMetHb 0.3 % (0.0-1.5); FO2Hb 98.4 % (94.0-98.0); MODE MASK - SIMPLE; PATIENT TEMPERATURE 36.5; TOTAL HEMOGLOBIN 10.1 G/dl (12.0-16.0)
[2024-09-04] MEDS ORDERED: naloxone 0.4 mg/ml inj IV PRN ×2 (16:00→21:10)
[2024-09-04] MEDS: HYDROmorphone inj. 0.5 MG/0.5 ML DISP.SYRIN IV PRN (17:11)
[2024-09-04 17:31] LABS: INR 1.1 INR; PROTHROMBIN TIME 11.8 SECONDS (9.0-12.0)
[2024-09-04 17:45] LABS: APTT 102 SECONDS (22-32)
[2024-09-04] MEDS: ringers solution, lacted 1,000 ML IV SCH (18:15)
[2024-09-04] MEDS: clindamycin 600mg/D5W 50ml 50 ML IV SCH (20:22)
[2024-09-04] MEDS ORDERED: niCARDipine-NS 40mg/200ml IVPB 200 ML IV PRN (20:35)
[2024-09-04] MEDS: niCARDipine-NS 40mg/200ml IVPB 200 ML IV PRN (21:03)
[2024-09-04] MEDS: HYDROmorphone 1 mg/ml syringe IV ONE (21:04)
[2024-09-04] MEDS: niCARDipine-NS 40mg/200ml IVPB 200 ML IV ONE (21:04)
[2024-09-04] MEDS: HYDROmorph/NS 0.2 mg/ml PCA 100 ML IV SCH (22:30)
[2024-09-05] VITALS (22 sets, daily range): BP systolic 114–152; BP diastolic 72–96; PULSE 64–90; RESP 9–23; TEMP 97.4–97.5; O2SAT 92–99
[2024-09-05 02:36] LABS: BASOPHILS % (AUTO) 0.1 % (0-1); EOSINOPHILS % (AUTO) 0 % (0-6); HEMOGLOBIN 9.6 g/dl (12.0-16.0); LYMPHOCYTES # (AUTO) 0.3 X10'3 (1.1-4.8); LYMPHOCYTES % (AUTO) 3.9 % (21-51); MEAN CORPUSCULAR HEMOGLOBIN 29.3 PG (27.0-31.0); MEAN CORPUSCULAR HGB CONC 34.2 g/dL (33.0-36.5); MEAN CORPUSCULAR VOLUME 85.7 FL (78-98); MEAN PLATELET VOLUME 8.6 FL (7.4-10.4); MONOCYTES # (AUTO) 0.7 X10'3 (0-0.9); MONOCYTES % (AUTO) 9.8 % (2-12); NEUTROPHILS % (AUTO) 86.2 % (42-75); PLATELET COUNT 218 X10'3 (140-440); RED BLOOD COUNT 3.27 X10'6 (4.20-5.60); RED CELL DISTRIBUTION WIDTH 15.5 % (11.5-14.5)
[2024-09-05 03:10] LABS: ALANINE AMINOTRANSFERASE 12 U/L (12-78); ALBUMIN 2.1 G/DL (3.4-5.0); ALBUMIN/GLOBULIN RATIO 0.6 (1.1-1.5); ALKALINE PHOSPHATASE 83 IU/L (46-116); ANION GAP 10 (8-16); ASPARTATE AMINO TRANSFERASE 18 U/L (10-37); BILIRUBIN,TOTAL 0.5 MG/DL (0.1-1.0); BLOOD UREA NITROGEN 26 MG/DL (7-18); BUN/CREATININE RATIO 33.8 (10.0-20.0); CALCIUM 8.6 MG/DL (8.5-10.1); CHLORIDE 102 MMOL/L (99-107); CREATININE 0.77 MG/DL (0.40-0.90); GLUCOSE 134 MG/DL (70-104); SODIUM 137 MMOL/L (135-145); TOTAL CARBON DIOXIDE 25.4 MMOL/L (24-32); TOTAL PROTEIN 5.6 G/DL (6.4-8.2); eCRCL 60 ML/MIN; eGFR 77 ML/MIN
[2024-09-05] MEDS: docusate sodium 100mg/10ml UD cup PO SCH (07:28)
[2024-09-05] MEDS: aspirin 300mg supp.rect RC SCH (07:30)
[2024-09-05] MEDS: COMMUNICATION ORDER 1 EA MISC MC ONE (09:35)
[2024-09-06] VITALS (8 sets, daily range): BP systolic 136–160; BP diastolic 87–99; PULSE 94–104; RESP 14–20; TEMP 96.7–98.3; O2SAT 93–98
[2024-09-06] MEDS ORDERED: glucagon, human recombinant 1mg kit SUBCUT PRN (01:45)
[2024-09-06] MEDS ORDERED: DEXTROSE 15 GM of carb/4 tabs (each vial/BOTTLE has 4 tablets) PO PRN ×2 (01:45)
[2024-09-06] MEDS ORDERED: dextrose 50%-water 50ml dispensing syringe IV PRN (01:45)
[2024-09-06] MEDS: dextrose 50%-water 50ml dispensing syringe IV PRN (02:15)
[2024-09-06] MEDS: hydrALAZINE 20mg/ml inj. IV ONE (07:31)
[2024-09-06] MEDS: aspirin 300mg supp.rect RC ONE (12:02)
[2024-09-07] VITALS (11 sets, daily range): BP systolic 108–242; BP diastolic 57–140; PULSE 74–176; RESP 16–24; TEMP 97.4–97.8; O2SAT 90–99
[2024-09-07] MEDS: hydrALAZINE 20mg/ml inj. IV PRN (04:22)
[2024-09-07] MEDS: metoprolol tartrate 1mg/ml inj IV ONE ×3 (04:37→06:45)
[2024-09-07 04:41] LABS: BASOPHILS % (AUTO) 0.5 % (0-1); EOSINOPHILS # (AUTO) 0.3 X10'3 (0-0.9); EOSINOPHILS % (AUTO) 3.7 % (0-6); HEMATOCRIT 23.6 % (35.0-45.0); HEMOGLOBIN 8.1 g/dl (12.0-16.0); LYMPHOCYTES # (AUTO) 1.1 X10'3 (1.1-4.8); LYMPHOCYTES % (AUTO) 12.9 % (21-51); MEAN CORPUSCULAR HEMOGLOBIN 29.2 PG (27.0-31.0); MEAN CORPUSCULAR HGB CONC 34.2 g/dL (33.0-36.5); MEAN CORPUSCULAR VOLUME 85.5 FL (78-98); MEAN PLATELET VOLUME 8.1 FL (7.4-10.4); MONOCYTES # (AUTO) 0.7 X10'3 (0-0.9); MONOCYTES % (AUTO) 8.6 % (2-12); NEUTROPHILS # (AUTO) 6.2 X10'3 (1.8-7.7); NEUTROPHILS % (AUTO) 74.3 % (42-75); PLATELET COUNT 280 X10'3 (140-440); RED BLOOD COUNT 2.77 X10'6 (4.20-5.60); RED CELL DISTRIBUTION WIDTH 15.9 % (11.5-14.5); WHITE BLOOD COUNT 8.3 X10'3 (4.5-11.0)
[2024-09-07 05:08] LABS: ANION GAP 10 (8-16); BLOOD UREA NITROGEN 17 MG/DL (7-18); BUN/CREATININE RATIO 18.5 (10.0-20.0); CALCIUM 8.2 MG/DL (8.5-10.1); CHLORIDE 103 MMOL/L (99-107); CREATININE 0.92 MG/DL (0.40-0.90); GLUCOSE 112 MG/DL (70-104); POTASSIUM 3.7 MMOL/L (3.5-5.1); SODIUM 137 MMOL/L (135-145); TOTAL CARBON DIOXIDE 24.1 MMOL/L (24-32); eCRCL 50 ML/MIN; eGFR 63 ML/MIN
[2024-09-07] MEDS: metoprolol tartrate 25mg tablet PO SCH (07:04)
[2024-09-07] MEDS: PCA WASTE DOCUMENTATION 1 MG ML MC PRN (13:02)
[2024-09-07] MEDS: magnesium hydroxide 30ml (MOM) UD suspension PO SCH (21:10)
[2024-09-08] VITALS (8 sets, daily range): BP systolic 99–133; BP diastolic 61–86; PULSE 64–86; RESP 12–18; TEMP 97.2–99.1; O2SAT 94–99
[2024-09-08] MEDS: HYDROcodone/acetaminophen 5mg/325mg tablet PO ONE (06:15)
[2024-09-08] MEDS ORDERED: aspirin 325mg tablet PO SCH (07:36)
[2024-09-08] MEDS: EMPAGLIFLOZIN 10 MG TABLET PO SCH (07:53)
[2024-09-08] MEDS: carVEDilol 3.125mg tablet PO SCH (07:54)
[2024-09-08] MEDS ORDERED: losartan 25mg tablet PO SCH (08:00)
[2024-09-08] MEDS: aspirin 325mg tablet, delayed-release (Ecotrin) PO SCH (08:11)
[2024-09-08 10:14] LABS: ALANINE AMINOTRANSFERASE 19 U/L (12-78); ALBUMIN 1.7 G/DL (3.4-5.0); ALBUMIN/GLOBULIN RATIO 0.5 (1.1-1.5); ALKALINE PHOSPHATASE 72 IU/L (46-116); ANION GAP 8 (8-16); ASPARTATE AMINO TRANSFERASE 14 U/L (10-37); BILIRUBIN,TOTAL 0.5 MG/DL (0.1-1.0); BLOOD UREA NITROGEN 13 MG/DL (7-18); BUN/CREATININE RATIO 14.9 (10.0-20.0); CALCIUM 7.9 MG/DL (8.5-10.1); CHLORIDE 105 MMOL/L (99-107); CREATININE 0.87 MG/DL (0.40-0.90); GLUCOSE 100 MG/DL (70-104); POTASSIUM 3.3 MMOL/L (3.5-5.1); SODIUM 138 MMOL/L (135-145); TOTAL PROTEIN 4.9 G/DL (6.4-8.2); eCRCL 53 ML/MIN; eGFR 67 ML/MIN
[2024-09-08 10:18] LABS: BASOPHILS % (AUTO) 0.4 % (0-1); EOSINOPHILS # (AUTO) 0.3 X10'3 (0-0.9); EOSINOPHILS % (AUTO) 4.6 % (0-6); HEMATOCRIT 22.5 % (35.0-45.0); HEMOGLOBIN 7.7 g/dl (12.0-16.0); LYMPHOCYTES # (AUTO) 0.7 X10'3 (1.1-4.8); LYMPHOCYTES % (AUTO) 12.7 % (21-51); MEAN CORPUSCULAR HEMOGLOBIN 29.3 PG (27.0-31.0); MEAN CORPUSCULAR HGB CONC 34.3 g/dL (33.0-36.5); MEAN CORPUSCULAR VOLUME 85.5 FL (78-98); MEAN PLATELET VOLUME 8.4 FL (7.4-10.4); MONOCYTES # (AUTO) 0.4 X10'3 (0-0.9); MONOCYTES % (AUTO) 7.6 % (2-12); NEUTROPHILS # (AUTO) 4.2 X10'3 (1.8-7.7); NEUTROPHILS % (AUTO) 74.7 % (42-75); PLATELET COUNT 217 X10'3 (140-440); RED BLOOD COUNT 2.64 X10'6 (4.20-5.60); RED CELL DISTRIBUTION WIDTH 15.9 % (11.5-14.5); WHITE BLOOD COUNT 5.7 X10'3 (4.5-11.0)
[2024-09-08] MEDS ORDERED: potassium Cl 20 mEq SR tablet PO PRN (11:10)
[2024-09-08] MEDS ORDERED: magnesium sulf-water 2g/50mL 50 ML IV PRN (11:10)
[2024-09-08] MEDS ORDERED: magnesium sulf-water 4G/100mL 100 ML IV PRN (11:10)
[2024-09-08] MEDS ORDERED: magnesium Cl slow-release 64mg tablet PO PRN (11:10)
[2024-09-08] MEDS ORDERED: potassium Cl 40MEQ/1/2NS 520ml 520 ML IV PRN (11:10)
[2024-09-08 11:29] LABS: MAGNESIUM 1.5 MG/DL (1.5-2.4)
[2024-09-08] MEDS: potassium Cl 20 mEq SR tablet PO PRN (15:59)
[2024-09-08] MEDS: K and/or MAG REPLACEMENT MC SCH (20:00)
[2024-09-08] MEDS: HYDROcodone/acetaminophen 5mg/325mg tablet PO PRN (21:02)
[2024-09-09] VITALS (11 sets, daily range): BP systolic 104–211; BP diastolic 57–124; PULSE 74–98; RESP 12–22; TEMP 96.8–98.3; O2SAT 94–98
[2024-09-09] MEDS: carVEDilol 12.5mg tablet PO SCH (08:00)
[2024-09-09] MEDS ORDERED: diatr meglu/diatrizoate 30ml oral sol.-(3 dose) bottle PO SCH (09:00)
[2024-09-09 09:57] LABS: BASOPHILS % (AUTO) 0.3 % (0-1); EOSINOPHILS # (AUTO) 0.1 X10'3 (0-0.9); HEMATOCRIT 22.9 % (35.0-45.0); HEMOGLOBIN 7.7 g/dl (12.0-16.0); LYMPHOCYTES # (AUTO) 0.5 X10'3 (1.1-4.8); LYMPHOCYTES % (AUTO) 7.1 % (21-51); MEAN CORPUSCULAR HEMOGLOBIN 29.3 PG (27.0-31.0); MEAN CORPUSCULAR HGB CONC 33.8 g/dL (33.0-36.5); MEAN CORPUSCULAR VOLUME 86.6 FL (78-98); MEAN PLATELET VOLUME 8.1 FL (7.4-10.4); MONOCYTES # (AUTO) 0.4 X10'3 (0-0.9); MONOCYTES % (AUTO) 5.3 % (2-12); NEUTROPHILS # (AUTO) 5.9 X10'3 (1.8-7.7); NEUTROPHILS % (AUTO) 85.3 % (42-75); PLATELET COUNT 233 X10'3 (140-440); RED BLOOD COUNT 2.65 X10'6 (4.20-5.60)
[2024-09-09 09:58] LABS: % IRON SATURATION 27 % (11-46); ALANINE AMINOTRANSFERASE 20 U/L (12-78); ALBUMIN 1.9 G/DL (3.4-5.0); ALBUMIN/GLOBULIN RATIO 0.6 (1.1-1.5); ALKALINE PHOSPHATASE 74 IU/L (46-116); ANION GAP 7 (8-16); ASPARTATE AMINO TRANSFERASE 13 U/L (10-37); BILIRUBIN,TOTAL 0.4 MG/DL (0.1-1.0); BLOOD UREA NITROGEN 18 MG/DL (7-18); CALCIUM 8.2 MG/DL (8.5-10.1); CHLORIDE 107 MMOL/L (99-107); GLUCOSE 107 MG/DL (70-104); IRON 54 UG/DL (49-151); MAGNESIUM 1.5 MG/DL (1.5-2.4); POTASSIUM 4.7 MMOL/L (3.5-5.1); SODIUM 138 MMOL/L (135-145); TOTAL CARBON DIOXIDE 23.6 MMOL/L (24-32); TOTAL IRON BINDING CAPACITY 197 UG/DL (259-388); TOTAL PROTEIN 5.1 G/DL (6.4-8.2); eCRCL 46 ML/MIN; eGFR 57 ML/MIN
[2024-09-09] MEDS ORDERED: iohexol 300mg/ml 100ml inj. ONE (10:06)
[2024-09-09] MEDS: LORazepam 0.5 MG tablet PO PRN (20:05)
[2024-09-09] MEDS: acetaminophen 325mg tablet PO PRN (20:11)
[2024-09-10 02:00] VITALS: BP 139/88; PULSE 77; RESP 18; TEMP 97.8; O2SAT 98
[2024-09-10 03:15] LABS: BASOPHILS # (AUTO) 0.1 X10'3 (0-0.2); BASOPHILS % (AUTO) 0.8 % (0-1); EOSINOPHILS # (AUTO) 0.4 X10'3 (0-0.9); HEMOGLOBIN 7.2 g/dl (12.0-16.0); LYMPHOCYTES # (AUTO) 1.3 X10'3 (1.1-4.8); LYMPHOCYTES % (AUTO) 20.2 % (21-51); MEAN CORPUSCULAR HEMOGLOBIN 29.2 PG (27.0-31.0); MEAN CORPUSCULAR HGB CONC 33.4 g/dL (33.0-36.5); MEAN CORPUSCULAR VOLUME 87.2 FL (78-98); MEAN PLATELET VOLUME 8.2 FL (7.4-10.4); MONOCYTES # (AUTO) 0.6 X10'3 (0-0.9); MONOCYTES % (AUTO) 8.6 % (2-12); NEUTROPHILS # (AUTO) 4.2 X10'3 (1.8-7.7); NEUTROPHILS % (AUTO) 64.4 % (42-75); PLATELET COUNT 252 X10'3 (140-440); RED BLOOD COUNT 2.46 X10'6 (4.20-5.60); RED CELL DISTRIBUTION WIDTH 15.8 % (11.5-14.5); WHITE BLOOD COUNT 6.5 X10'3 (4.5-11.0)
[2024-09-10 03:21] LABS: HEMATOCRIT 21.5 % (35.0-45.0)
[2024-09-10 03:38] LABS: ALANINE AMINOTRANSFERASE 9 U/L (12-78); ALBUMIN 1.5 G/DL (3.4-5.0); ALBUMIN/GLOBULIN RATIO 0.6 (1.1-1.5); ALKALINE PHOSPHATASE 56 IU/L (46-116); ANION GAP 5 (8-16); ASPARTATE AMINO TRANSFERASE 11 U/L (10-37); BILIRUBIN,TOTAL 0.3 MG/DL (0.1-1.0); BLOOD UREA NITROGEN 18 MG/DL (7-18); BUN/CREATININE RATIO 20.9 (10.0-20.0); CALCIUM 6.6 MG/DL (8.5-10.1); CHLORIDE 113 MMOL/L (99-107); CREATININE 0.86 MG/DL (0.40-0.90); MAGNESIUM 1.7 MG/DL (1.5-2.4); SODIUM 140 MMOL/L (135-145); TOTAL CARBON DIOXIDE 22.4 MMOL/L (24-32); TOTAL PROTEIN 4.2 G/DL (6.4-8.2); eCRCL 54 ML/MIN; eGFR 68 ML/MIN
[2024-09-10 03:47] LABS: GLUCOSE 91 MG/DL (70-104)
[2024-09-10] MEDS: labetalol 20mg/4ml (5mg/ml) syringe IV ONE (05:54)
[2024-09-10 06:00] VITALS: BP 155/113; PULSE 90; RESP 22; TEMP 98.2; O2SAT 96
[2024-09-10] MEDS: ondansetron/PF 4mg/2ml inj IV PRN (07:16)
[2024-09-10 08:00] VITALS: RESP 22; O2SAT 96
[2024-09-10 11:00] VITALS: BP 108/76; PULSE 73; RESP 20; TEMP 97.8; O2SAT 95
[2024-09-10 15:00] VITALS: BP 115/74; PULSE 77; RESP 16; TEMP 97.9; O2SAT 96
[2024-09-10 16:12] LABS: PRO BRAIN NATRIURETIC PEPTIDE > 30000 PG/ML (0-125)
[2024-09-10 18:00] VITALS: BP 122/74; PULSE 84; RESP 20; TEMP 97.6; O2SAT 97
[2024-09-11] VITALS (8 sets, daily range): BP systolic 93–159; BP diastolic 46–87; PULSE 73–83; RESP 16–20; TEMP 97.2–98.6; O2SAT 94–100
[2024-09-11 06:24] LABS: BASOPHILS # (AUTO) 0.1 X10'3 (0-0.2); BASOPHILS % (AUTO) 0.8 % (0-1); EOSINOPHILS # (AUTO) 0.4 X10'3 (0-0.9); EOSINOPHILS % (AUTO) 5.9 % (0-6); HEMOGLOBIN 7.3 g/dl (12.0-16.0); LYMPHOCYTES # (AUTO) 0.8 X10'3 (1.1-4.8); MEAN CORPUSCULAR HEMOGLOBIN 29.1 PG (27.0-31.0); MEAN CORPUSCULAR HGB CONC 33.6 g/dL (33.0-36.5); MEAN CORPUSCULAR VOLUME 86.6 FL (78-98); MEAN PLATELET VOLUME 7.8 FL (7.4-10.4); MONOCYTES # (AUTO) 0.5 X10'3 (0-0.9); MONOCYTES % (AUTO) 7.7 % (2-12); NEUTROPHILS # (AUTO) 5.1 X10'3 (1.8-7.7); NEUTROPHILS % (AUTO) 73.6 % (42-75); PLATELET COUNT 224 X10'3 (140-440); RED BLOOD COUNT 2.53 X10'6 (4.20-5.60); RED CELL DISTRIBUTION WIDTH 15.9 % (11.5-14.5); WHITE BLOOD COUNT 6.9 X10'3 (4.5-11.0)
[2024-09-11 06:27] LABS: HEMATOCRIT 21.9 % (35.0-45.0)
[2024-09-11 06:58] LABS: ALANINE AMINOTRANSFERASE 14 U/L (12-78); ALBUMIN 1.7 G/DL (3.4-5.0); ALBUMIN/GLOBULIN RATIO 0.5 (1.1-1.5); ALKALINE PHOSPHATASE 62 IU/L (46-116); ANION GAP 5 (8-16); ASPARTATE AMINO TRANSFERASE 13 U/L (10-37); BILIRUBIN,TOTAL 0.3 MG/DL (0.1-1.0); BLOOD UREA NITROGEN 19 MG/DL (7-18); BUN/CREATININE RATIO 17.9 (10.0-20.0); CALCIUM 7.9 MG/DL (8.5-10.1); CHLORIDE 107 MMOL/L (99-107); CREATININE 1.06 MG/DL (0.40-0.90); GLUCOSE 88 MG/DL (70-104); MAGNESIUM 1.6 MG/DL (1.5-2.4); POTASSIUM 3.9 MMOL/L (3.5-5.1); SODIUM 138 MMOL/L (135-145); TOTAL PROTEIN 4.8 G/DL (6.4-8.2); eCRCL 44 ML/MIN; eGFR 53 ML/MIN
[2024-09-11] MEDS ORDERED: furosemide 40mg tablet PO SCH (08:00)
[2024-09-11] MEDS: furosemide 40mg/4ml inj IV ONE (09:09)
[2024-09-11] MEDS: spironolactone 25 MG tablet PO SCH (09:11)
[2024-09-11] MEDS: lactose-reduced food (Ensure Enlive) - 237ml bottle PO SCH (12:30)
[2024-09-11] MEDS ORDERED: albuterol 2.5 MG/3 ML nebule NEB PRN (14:40)
[2024-09-12] VITALS (9 sets, daily range): BP systolic 91–131; BP diastolic 45–70; PULSE 68–75; RESP 13–18; TEMP 97.2–98.3; O2SAT 90–96
[2024-09-12 06:39] LABS: BASOPHILS % (AUTO) 0.5 % (0-1); EOSINOPHILS # (AUTO) 0.5 X10'3 (0-0.9); EOSINOPHILS % (AUTO) 7.5 % (0-6); HEMATOCRIT 22.5 % (35.0-45.0); HEMOGLOBIN 7.5 g/dl (12.0-16.0); LYMPHOCYTES # (AUTO) 0.8 X10'3 (1.1-4.8); LYMPHOCYTES % (AUTO) 12.1 % (21-51); MEAN CORPUSCULAR HGB CONC 33.5 g/dL (33.0-36.5); MEAN CORPUSCULAR VOLUME 86.8 FL (78-98); MEAN PLATELET VOLUME 7.9 FL (7.4-10.4); MONOCYTES # (AUTO) 0.5 X10'3 (0-0.9); MONOCYTES % (AUTO) 7.5 % (2-12); NEUTROPHILS # (AUTO) 4.7 X10'3 (1.8-7.7); NEUTROPHILS % (AUTO) 72.4 % (42-75); PLATELET COUNT 273 X10'3 (140-440); RED CELL DISTRIBUTION WIDTH 15.6 % (11.5-14.5); WHITE BLOOD COUNT 6.6 X10'3 (4.5-11.0)
[2024-09-12 07:06] LABS: ALANINE AMINOTRANSFERASE 11 U/L (12-78); ALBUMIN 1.7 G/DL (3.4-5.0); ALBUMIN/GLOBULIN RATIO 0.5 (1.1-1.5); ALKALINE PHOSPHATASE 60 IU/L (46-116); ANION GAP 7 (8-16); ASPARTATE AMINO TRANSFERASE 19 U/L (10-37); BILIRUBIN,TOTAL 1.3 MG/DL (0.1-1.0); BLOOD UREA NITROGEN 22 MG/DL (7-18); BUN/CREATININE RATIO 20.2 (10.0-20.0); CALCIUM 8.1 MG/DL (8.5-10.1); CHLORIDE 106 MMOL/L (99-107); CREATININE 1.09 MG/DL (0.40-0.90); GLUCOSE 99 MG/DL (70-104); MAGNESIUM 1.6 MG/DL (1.5-2.4); POTASSIUM 3.7 MMOL/L (3.5-5.1); SODIUM 138 MMOL/L (135-145); TOTAL CARBON DIOXIDE 25.4 MMOL/L (24-32); TOTAL PROTEIN 4.9 G/DL (6.4-8.2); eCRCL 42 ML/MIN; eGFR 52 ML/MIN
[2024-09-13] VITALS (10 sets, daily range): BP systolic 123–157; BP diastolic 67–95; PULSE 72–87; RESP 16–27; TEMP 96.4–98.7; O2SAT 94–97
[2024-09-14] VITALS (8 sets, daily range): BP systolic 109–149; BP diastolic 53–79; PULSE 68–86; RESP 12–22; TEMP 96.9–98.2; O2SAT 92–97
[2024-09-15] VITALS (7 sets, daily range): BP systolic 96–194; BP diastolic 51–90; PULSE 62–80; RESP 10–20; TEMP 97.1–98.3; O2SAT 93–98
[2024-09-16 06:00] VITALS: BP 131/75; PULSE 77; RESP 17; TEMP 97.1; O2SAT 95
[2024-09-16 11:00] VITALS: BP 136/70; PULSE 70; RESP 24; TEMP 98.3; O2SAT 93
[2024-09-16 15:00] VITALS: BP 101/51; PULSE 69; RESP 24; TEMP 98.3; O2SAT 96
[2024-09-16 18:00] VITALS: BP 126/69; PULSE 65; RESP 20; TEMP 97.8; O2SAT 97
[2024-09-16 20:00] VITALS: RESP 16; O2SAT 99
[2024-09-16 22:00] VITALS: BP 140/70; PULSE 76; RESP 16; TEMP 97.3; O2SAT 99
[2024-09-17 02:00] VITALS: BP 125/69; PULSE 69; RESP 17; TEMP 97.6; O2SAT 96
[2024-09-17 06:00] VITALS: BP 146/84; PULSE 70; RESP 20; TEMP 97.3; O2SAT 95
[2024-09-17 08:00] VITALS: RESP 20; O2SAT 95
[2024-09-17 11:00] VITALS: BP 99/54; PULSE 67; RESP 18; TEMP 97.8; O2SAT 96
[2024-09-17] MEDS ORDERED: SPIR25TA PO (12:01)
[2024-09-17] MEDS ORDERED: EMPA10TA PO (12:01)
[2024-09-17 15:55] VITALS: RESP 16
== END 2024-09-17 15:59 | disposition home health service (06) | DRG 950 ==
LOC: ER 20:49 → ED HOLD 08-31 03:58 → PCU 3S 08-31 21:50 → CICU 2S 09-04 13:25 → PCU 3S 09-05 17:46
PROVIDERS: ADMIT Internal Medicine Critical Care Medicine; ATTEND Internal Medicine
PROC: BW211ZZ Computerized Tomography (CT Scan) of Abdomen and Pelvis using Low Osmolar Contrast (ICD-10-PCS; 2024-09-04)
PROC: 06BP0ZZ Excision of Right Saphenous Vein, Open Approach (ICD-10-PCS; 2024-09-04)
PROC: 041 Lower Arteries, Bypass (ICD-10-PCS; principal; 2024-09-04 11:42)
DX: K55.9 Vascular disorder of intestine, unspecified (principal); I50.23 Acute on chronic systolic (congestive) heart failure; I21.A1 Myocardial infarction type 2; E87.1 Hypo-osmolality and hyponatremia; K55.1 Chronic vascular disorders of intestine; I47.10 Supraventricular tachycardia, unspecified; R45.851 Suicidal ideations; G47.30 Sleep apnea, unspecified; D64.9 Anemia, unspecified; E87.6 Hypokalemia; I16.1 Hypertensive emergency; I13.0 Hypertensive heart and chronic kidney disease with heart failure and stage 1 through stage 4 chronic kidney disease, or unspecified chronic kidney disease; N18.31 Chronic kidney disease, stage 3a; F32.9 Major depressive disorder, single episode, unspecified; E78.5 Hyperlipidemia, unspecified; I70.1 Atherosclerosis of renal artery; E83.42 Hypomagnesemia; E87.8 Other disorders of electrolyte and fluid balance, not elsewhere classified; I73.9 Peripheral vascular disease, unspecified; Z86.73 Personal history of transient ischemic attack (TIA), and cerebral infarction without residual deficits; Z87.891 Personal history of nicotine dependence; Z90.49 Acquired absence of other specified parts of digestive tract; Z91.148 Patient's other noncompliance with medication regimen for other reason; Z88.0 Allergy status to penicillin; Z88.8 Allergy status to other drugs, medicaments and biological substances
CPT/HCPCS: 36415; 36600; 70450; 71045; 74176; 74177; 78452; 80048; 80053; 80061; 80305; 80320; 81001; 82140; 82607; 82803; 82948; 83036; 83540; 83550; 83605; 83735; 83880; 84100; 84132; 84145; 84443; 84484; 85018; 85025; 85610; 85730; 86885; 86900; 86901; 86920; 87081; 93005; 93017; 93308; 93880; 93970; 94760; 94799; 96365; 96366; 96372; 96375; 96376; 97110; 97116; 97162; 97530; 97535; 99291; A4314; A4615; A4618; A6212; A6213; A6250; A6258; A6402; A6449; A7000; A9500; C1758; G0378; J0360; J0690; J1100; J1171; J1250; J1644; J1650; J1940; J2250; J2270; J2405; J2704; J2710; J2785; J3010; J3480; J3490; J7030; J7040; J7042; J7050; J7120; J7121; Q9963; Q9967

== ENCOUNTER 2025-01-20 09:30 | Inpatient (IN) | payer BC, OTHER ==
[~2025-01-20] VITALS: Ht 154.9 cm; Wt 57.3 kg
[~2025-01-20 09:30] MED LIST changes: -ASPI-1071 PO; -ATOR20TA66 PO; +EMPA10TA PO; -LABE100T8 PO; +LOSA50TA64 PO; -NIFE-72 PO; -NO HOME MEDS; +ONDA-245 PO; +SPIR25TA PO
--- NOTE | 2025-01-20 09:37 | ELECTROCARDIOGRAPH REPORT ---
[facility] Test Date: 2025-01-20 Test Time: 09:35:12 Pat Name: TRAVIS ESPARZA Department: EMERGENCY ROOM Room: Gender: F Dental Officer: ANETA : 1965 Requested By: CHACORTA MARINO Order Number: [id number] Reading MD: Measurements Intervals [place] Rate: 96 P: 86 [place]: 152 QRS: 79 QRSD: 99 T: 179 QT: 363 QTc: 459 Interpretive Statements Sinus rhythm Probable left atrial enlargement Left ventricular hypertrophy Abnrm T, consider ischemia, anterolateral lds Please click the below link to view image of tracing.
--- NOTE | 2025-01-20 09:41 | Physician Documentation ---
History of Present Illness ~ General Stated Complaint: SYNCOPE Time Seen by MD: 09:35 Primary Medical Doctor: Dr. Cason Source: patient, EMS, EMS notes reviewed Mode of Arrival: EMS Exam Limitations: no limitations History of Present Illness Initial Comments Chief Complaint: Passed out, nausea and vomiting Caveat: None Independent Historians: Paramedics History of Present Illness: Patient is a 59-year-old woman who has had a hi story of multiple episodes of syncope. Patient has started to feel ill last evening with nausea and vomiting. Patient states that she has had this since she had her surgery in August. Patient had occlusion of her SMA and had bypass of the SMA. Review of systems: All systems were reviewed and are negative except for what is indicated in the history of present illness. 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 Social History: Former Tobacco use, no alcohol use, no drug use Medications: Reviewed as documented Nursing Notes Allergies: Reviewed as documented in Nursing Notes Medication Reconciliation Allergies: Coded Allergies: grape (Unverified Allergy, Severe, 08/31/24) Facial swelling Penicillins (Verified Allergy, Unknown, 06/03/24) clonidine (Verified Adverse Reaction, Intermediate, continuous orgasims, 06/03/24) Scheduled Losartan Potassium (Losartan Potassium), 1 TAB PO DAILY, (Reported) Spironolactone (Aldactone), 1 TAB PO DAILY Discontinued Medications Empagliflozin (Jardiance), 1 TAB PO DAILY Discontinued Reason: patient no longer taking Ondansetron 8mg ODT (Ondansetron Odt), 1 TAB PO Q8H PRN for nausea, (Reported) Discontinued Reason: patient no longer taking Past Medical History Past Medical History: Depression Past Surgical History: noncontributory Patient History: FH: cancer MOTHER, History of cancer in father of infant FATHER, Alcohol Use: None Drug Use: none Lives with: Spouse Lives In: Home Progress Results/Orders Results/Orders Orders - CHACORTA MARINO MD Chest,Single View (01/20/25 09:35) Saline Lock (01/20/25 09:35) Monitor (01/20/25 09:35) Morphine 4mg/Ml Inj. (Morphine Inj.) (01/20/25 15:25) Completed Orders - CHACORTA MARINO MD Cbc/Diff (01/20/25 09:35) MG (01/20/25 09:35) Electrocardiogram (01/20/25 09:35) PBNP (01/20/25 09:35) Chest,Single View (01/20/25 09:35) BMP (01/20/25 09:35) Hs Troponin I W Calculations (01/20/25 09:35) Hs Troponin I W Calculations (01/20/25 11:35) Hs Troponin I W Calculations (01/20/25 12:35) Normal Saline 1000ml (Sodium Chloride 10 (01/20/25 09:35) Aspirin 81mg Chew Tablet (Aspirin 81mg C (01/20/25 15:20) Ondansetron Inj. (Zofran 4mg/2ml Vial) (01/20/25 15:25) Medications Received in ER Medications (Trade) Dose Ordered Sig/Vincent Route PRN Reason Start Time Stop Time Status Last Admin Dose Admin (sodium chloride 1000ml IV soln) 1,000 ml ONCE ONCE IVB 01/20/25 09:35 01/20/25 09:36 DC 01/20/25 10:03 1,000 ML Vital Signs 01/20/25 01/20/25 01/20/25 01/20/25 09:36 09:44 10:37 11:48 Temp 98.0 Pulse 104 88 92 Resp 16 16 16 14 B/P (MAP) 152/113 162/103 (122) 153/101 (118) Pulse Ox 96 96 93 Laboratory Tests Test 01/20/25 10:13 01/20/25 11:47 01/20/25 13:06 White Blood Count 6.2 Red Blood Count 4.96 Hemoglobin 14.1 Hematocrit 42.2 Mean Corpuscular Volume 85.0 Mean Corpuscular Hemoglobin 28.3 Mean Corpuscular Hemoglobin Concent 33.3 Red Cell Distribution Width 14.2 Platelet Count 274 Mean Platelet Volume 8.5 Neutrophils (%) (Auto) 83.7 H Lymphocytes (%) (Auto) 11.2 L Monocytes (%) (Auto) 4.6 Eosinophils (%) (Auto) 0.2 Basophils (%) (Auto) 0.3 Neutrophils # (Auto) 5.2 Lymphocytes # (Auto) 0.7 L Monocytes # (Auto) 0.3 Eosinophils # (Auto) 0.0 Basophils # (Auto) 0.0 CBC Comment Sodium Level 140 Potassium Level 4.2 Chloride Level 101 Carbon Dioxide Level 25.6 Anion Gap 13 Blood Urea Nitrogen 20 H Creatinine 1.10 H Estimated GFR/1.73 m2 51 BUN/Creatinine Ratio 18.2 Glucose Level 119 H Calcium Level 10.2 H Magnesium Level 1.7 Troponin I High Sensitivity 79 *H 82 *H 92 *H Pro-B-Type Natriuretic Peptide > 38107 H Albumin 3.8 Chemistry Comments Troponin I High Sens Percent Delta 3 12 Troponin I Hi Sens Absolute Change 3 10 Medical Decision Making Findings Differential diagnosis includes but is not limited to: Hypovolemia, GI bleed, cardiac dysrhythmia, vasovagal syncope, dehydration acute coronary syndrome, congestive heart failure EKG independent interpretation: Performed at 9:35 a.m.. Normal sinus rhythm, heart rate 96, normal axis, flipped T-waves V3 through V6 Chest x-ray, single view, indication: Syncope Independent interpretation: Lungs are clear, normal mediastinum, normal cardiac silhouette. No acute cardiopulmonary process Laboratory data independent interpretation: CBC: Unremarkable CMP: Unremarkable 1rst troponin: 79 2nd troponin: 82 3rd troponin: 92 Urinalysis: Emergency department course/medical decision-making: Patient is a 59-year-old woman who appears much older than her stated age has had multiple episodes of syncope and chronic nausea and vomiting. Patient presents today with syncope and vomiting over the last couple of days. Patient is given 1 L of IV normal saline. Patient is given Zofran 4 mg IV. Patient is afebrile. She has been hemodynamically stable here. There has been no evidence of a GI bleed or hypotension. No suspicion for sepsis. Patient isn't having any chest pain or other symptoms of acute coronary syndrome, however her troponins are mildly elevated. Patient remains asymptomatic at this time. We will recommend admission for at least observation. Patient's EKG shows some flipped T-waves in lateral leads. Present treatment plan reviewed with the patient. Consultation/communications: 3:20 p.m.: Case discussed with hospitalist/resident, Dr. Martinez. He will see the patient. Departure Time of Disposition: 13:48 Admitted to Inpatient Unit: to hospitalist Admission Level of Care: Med/Surg with Tele Impression: Primary Impression: Syncope Qualified Codes: R55 - Syncope and collapse Additional Impression: Elevated troponin Condition: Fair Referrals: NO PRIMARY CARE PROVIDER (PCP) Education Educated: Patient, Family Educated regarding: diagnosis, treatment Signature Scribe Signature: No scribe Attestation: No scribe CHACORTA MARINO MD January 20, 2025 09:41
[2025-01-20] MEDS: normal saline 1000ML IV soln IVB ONE (10:03)
--- NOTE | 2025-01-20 10:26 | RADIOLOGY REPORT ---
CHEST RADIOGRAPH Indication: CP Technique: Single frontal view of the chest was obtained COMPARISON: DI CHEST,SINGLE VIEW on DOS: 09/04/24, DI CHEST,SINGLE VIEW on DOS: 08/30/24 FINDINGS: Lines and Tubes: None Lungs: Clear Pleura: No effusion. No pneumothorax. Cardiomediastinal contours: Unremarkable Bones: Unremarkable IMPRESSION: No acute disease.
[2025-01-20 10:47] LABS: BASOPHILS % (AUTO) 0.3 % (0-1); EOSINOPHILS % (AUTO) 0.2 % (0-6); HEMATOCRIT 42.2 % (35.0-45.0); HEMOGLOBIN 14.1 g/dl (12.0-16.0); LYMPHOCYTES # (AUTO) 0.7 X10'3 (1.1-4.8); LYMPHOCYTES % (AUTO) 11.2 % (21-51); MEAN CORPUSCULAR HEMOGLOBIN 28.3 PG (27.0-31.0); MEAN CORPUSCULAR HGB CONC 33.3 g/dL (33.0-36.5); MEAN PLATELET VOLUME 8.5 FL (7.4-10.4); MONOCYTES # (AUTO) 0.3 X10'3 (0-0.9); MONOCYTES % (AUTO) 4.6 % (2-12); NEUTROPHILS # (AUTO) 5.2 X10'3 (1.8-7.7); NEUTROPHILS % (AUTO) 83.7 % (42-75); PLATELET COUNT 274 X10'3 (140-440); RED BLOOD COUNT 4.96 X10'6 (4.20-5.60); RED CELL DISTRIBUTION WIDTH 14.2 % (11.5-14.5); WHITE BLOOD COUNT 6.2 X10'3 (4.5-11.0)
[2025-01-20 11:00] LABS: ALBUMIN 3.8 G/DL (3.4-5.0); ANION GAP 13 (8-16); BLOOD UREA NITROGEN 20 MG/DL (7-18); BUN/CREATININE RATIO 18.2 (10.0-20.0); CALCIUM 10.2 MG/DL (8.5-10.1); CHLORIDE 101 MMOL/L (99-107); GLUCOSE 119 MG/DL (70-104); MAGNESIUM 1.7 MG/DL (1.5-2.4); POTASSIUM 4.2 MMOL/L (3.5-5.1); SODIUM 140 MMOL/L (135-145); TOTAL CARBON DIOXIDE 25.6 MMOL/L (24-32); eCRCL 42 ML/MIN; eGFR 51 ML/MIN
[2025-01-20 11:01] LABS: PRO BRAIN NATRIURETIC PEPTIDE > 30000 PG/ML (0-125)
[2025-01-20] MEDS: aspirin 81mg tab.chew PO ONE (15:31)
[2025-01-20] MEDS: ondansetron/PF 4mg/2ml inj IV ONE (15:31)
[2025-01-20] MEDS: morphine 4 MG/ML inj SYRINge IV PRN (15:32)
[2025-01-20] MEDS ORDERED: magnesium hydroxide 30ml (MOM) UD suspension PO PRN ×2 (16:20→18:10)
[2025-01-20] MEDS ORDERED: magnesium sulf-water 2g/50mL 50 ML IV PRN ×3 (16:20→18:10)
[2025-01-20] MEDS ORDERED: potassium Cl 20 mEq SR tablet PO PRN ×4 (16:20→18:10)
[2025-01-20] MEDS ORDERED: ondansetron/PF 4mg/2ml inj IV PRN ×2 (16:20→18:10)
[2025-01-20] MEDS ORDERED: magnesium Cl slow-release 64mg tablet PO PRN ×2 (16:20→18:10)
[2025-01-20] MEDS ORDERED: magnesium sulf-water 4G/100mL 100 ML IV PRN ×3 (16:20→18:10)
[2025-01-20] MEDS ORDERED: mag hydrox/Alum hydrox/simeth 30ml oral suspension PO PRN ×2 (16:20→18:10)
[2025-01-20] MEDS: normal saline 500ml IV soln 500 ML IV ONE (16:20)
[2025-01-20] MEDS ORDERED: potassium Cl 40MEQ/1/2NS 520ml 520 ML IV PRN ×3 (16:20→18:10)
[2025-01-20] MEDS: normal saline 1000ml 1,000 ML IV SCH (17:02)
[2025-01-20] MEDS: diphenhydrAMINE 50 mg/ml inj IV ONE (17:11)
--- NOTE | 2025-01-20 17:53 | HISTORY AND PHYSICAL-Residence ---
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 She and her endorsed the different different stories at the ER bedside. She stated that pt started having nausea and vomiting and son loose bowel which is acute on chronic 2-3 hours after she had eating hamburger yesterday afternoon. She could not remember how many times she had loose bowel since she was wearing a diaper. Her intake was literally reduced after she has nausea and vomiting yesterday, and her insisted her to go to the ER today. Her right lower abdominal pain was dull aching nonradiating 7-04/22, not relieved with the positions and had similar pain since she had the surgery for her SMA occlusion in last year August. Her endorsed that she had passed out this morning on the toilet seat. She did not recall any dizziness, lightheadedness, palpitations, chest pain/pressure/discomfort, sweating, visual changes, hot flashes. Every time she has syncope attacks were happened when she was on the toilet seat since 2023. She is not diabetic and non complaince with her prescribed meds including for her high blood pressure meds. She denies any fall down and head injury history, seizure disorders and epilepsy episodes. She denies orthopnea, acute new SOB, pND and Bilateral pedal edema. She endorsed for the unusual frequent urination and nocturia but denies for dysuria and hematuria. In ER, she passed out on the sitting from supine after she got the IV Morphine prescribed in ER which was associated with dropped down HR to 44 and BP 90/50 from 120/80 mmHg. She was given 1.5 L bolus in ER. She also complained of itchiness in her face and arms after she fainted for which one time dose of Benadryl was given. 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 She denies using and drinking alcohol, using any illicit drugs. She is bed-bound after she got the CVA in August 2024 resulted into left-sided hemiplegia. She is currently living with her spouse who is helping her out. Alcohol Use: None Drug Use: None Lives with: Spouse Lives In: Home ROS ROS Hours were reviewed within normal limit, except for the above-mentioned in HPI Exam Vitals: Vital Signs Date Time Temp Pulse Resp B/P (MAP) Pulse Ox O2 Delivery O2 Flow Rate FiO2 01/20/25 16:51 98 Nasal Cannula* 2 28 01/20/25 16:05 44 14 93/55 (68) 01/20/25 09:36 98.0 General: General: Well alert, well oriented, not confused, not agitated, not in acute distress, well cooperated during the physical. HEENT: HEENT: pale and weak looking with frail appearance. Conjunctive are pink, sclerae clear, no icterus, pupil is equal in both sides, reactive to light, no ear discharge, no pharyngeal erythema or an edema, mouth and lips are dry. Neck: Neck: Supple, no JVD, no lymphadenopathy and thyromegaly. Chest: Lungs:Equal air entry on both lungs, no additional sounds Cardiovascular: Heart: S1-S2 regular sinus rhythm and, regular rate, no gallops, no rubs, no murmurs Abdomen: Abdomen: No visible peristalsis, Bowel sounds present on auscultation, soft, tender at the Right lower abd, no guarding, no rigidity Extremities: Extremities: No obvious deformities, no pitting edema bilaterally, capillary refill intact, able to wiggle toes both sides, peripheral pulsations are intact on both sides Central Nervous System: [employer] RELATIONS: No focal neurological deficits except for the left sided hemiplegia, no motor and sensory weakness in other extremities, could move all 4 extremities Musculoskeletal: Musculoskeletal: No joint swelling, deformities, inflammations, and no scoliosis and back tenderness Skin: Skin: No active skin lesions and rashes Diagnostic Data Last Recorded Lab Results: 01/20/25 1013 01/20/25 1013 Counseling Services Smoking & Tobacco Cessation: > 10 Minutes Additional Plan A 59 years old female presented with nausea, vomiting, and acute on chronic right lower abdominal pain along with chronic diarrhea and syncope on the toilet seat this morning since yesterday afternoon after she ate hamburger and frequent urination with the past medical history of s/p ileostomy bypass surgery for SMA stenosis, unilateral left renal artery stenosis and left renal atrophy, 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 # Severe dehydration from Nausea and Vomiting from food poisoning # possible orthostatic hypotension # Syncope # Possible Morphine allergy -was given 1.5 L of normal saline bolus followed by IV 0.9% sodium chloride 50 mL/hr -I's and O's monitoring -Given one time dose of IV Benadryl 25 mg in ER for her possible morphine allergy -no signs and symptoms of GI infection from food poisoning at the moment. -continuous telemetry monitoring -control the abdominal pain with Tylenol/Dilaudid as needed # Mildly elevated Troponins - due to T2MI # Hx of CHFrEF 35% -serial troponin level show 50-32-13-103 -no S/S acute CHF exacerbation at the moment -gently hydrate the patient with IV normal saline 50 mL/hr -cardiology Dr. Soha michelle was requested for the consultation and aware of the patient's admission by recommending gentle hydration. Do not recommend for stress test again. -last time stress test showed negative for reversible ischemic changes. 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 losartan 50 mg daily # acute on chronic abdominal pain from the Chronic SMA # chronic diarrhea history -monitor bowel movement, continue IV fluid replacement, control the pain with Tylenol/Dilaudid as needed. # frequency and nocturia -WBC normal, vitals were stable -pending UA and C&S results to be follow up. # history of CVA with left-sided hemiplegia # history of hyperlipidemia -medication reconciliation was pending, PT eval CODE STATUS: Full code DVT prophylaxis: Sc heparin Analgesia/sedation: Acetaminophen/ Dilaudid Lines/tubes: Peripheral IV GI prophylaxis: None Nutrition: Heart healthy Prognosis: Guarded Disposition: Continue medical management including IV fluids, F/up cardiology consultation, PT eval and DC plan. Resident MD attestation: Patient was seen, examined and discussed with attending MD, Dr. Rylan ANDERSEN MD Internal Medicine Resident, PGY2 [facility] Date of Service: January 20, 2025 Billing Provider: ALYSSA FORREST MD Common Visit Codes: 12024-OLNTVAQ INP/OBS CARE (HIGH) Secondary Visit Codes: [id number] CARE PLAN 30 MINUTES SPARKLE ANDERSEN, KYLE January 20, 2025 17:53 ALYSSA FORREST MD January 21, 2025 16:05
[2025-01-20] MEDS ORDERED: acetaminophen 325mg tablet PO PRN (18:10)
[2025-01-20 18:52] LABS: MAGNESIUM 1.7 MG/DL (1.5-2.4); PHOSPHORUS 3.7 MG/DL (2.3-4.5)
[2025-01-20 19:12] LABS: HEMOGLOBIN A1C 4.6 % (4.5-6.2)
[2025-01-20] MEDS: docusate sod 100mg capsule PO SCH (20:00)
[2025-01-20] MEDS ORDERED: K and/or MAG REPLACEMENT MC SCH (20:00)
[2025-01-20] MEDS: K and/or MAG REPLACEMENT MC SCH (20:00)
[2025-01-20 20:30] VITALS: RESP 19; O2SAT 96
[2025-01-20 21:00] VITALS: BP 201/106; PULSE 84; RESP 19; TEMP 98; O2SAT 96
[2025-01-20] MEDS: losartan 50mg tablet PO ONE (21:21)
[2025-01-20] MEDS: heparin, porcine 5000 units/ml vial SQ SCH (21:22)
[2025-01-21] VITALS (9 sets, daily range): BP systolic 108–186; BP diastolic 44–114; PULSE 79–93; RESP 16–19; TEMP 97.6–98.6; O2SAT 95–99
[2025-01-21 06:29] LABS: EOSINOPHILS # (AUTO) 0.1 X10'3 (0-0.9); HEMATOCRIT 32.2 % (35.0-45.0); LYMPHOCYTES # (AUTO) 1.6 X10'3 (1.1-4.8); MONOCYTES # (AUTO) 0.6 X10'3 (0-0.9); WHITE BLOOD COUNT 5.3 X10'3 (4.5-11.0)
[2025-01-21 06:32] LABS: BASOPHILS % (AUTO) 0.6 % (0-1); EOSINOPHILS % (AUTO) 1.3 % (0-6); HEMOGLOBIN 10.8 g/dl (12.0-16.0); LYMPHOCYTES % (AUTO) 30.5 % (21-51); MEAN CORPUSCULAR HEMOGLOBIN 28.5 PG (27.0-31.0); MEAN CORPUSCULAR HGB CONC 33.4 g/dL (33.0-36.5); MEAN CORPUSCULAR VOLUME 85.2 FL (78-98); MEAN PLATELET VOLUME 8.5 FL (7.4-10.4); MONOCYTES % (AUTO) 10.6 % (2-12); PLATELET COUNT 218 X10'3 (140-440); RED BLOOD COUNT 3.78 X10'6 (4.20-5.60); RED CELL DISTRIBUTION WIDTH 14.7 % (11.5-14.5)
[2025-01-21 07:03] LABS: ALANINE AMINOTRANSFERASE 17 U/L (12-78); ALKALINE PHOSPHATASE 73 IU/L (46-116); ANION GAP 11 (8-16); ASPARTATE AMINO TRANSFERASE 14 U/L (10-37); BILIRUBIN,TOTAL 0.4 MG/DL (0.1-1.0); BLOOD UREA NITROGEN 46 MG/DL (7-18); BUN/CREATININE RATIO 33.1 (10.0-20.0); CALCIUM 8.9 MG/DL (8.5-10.1); CHLORIDE 105 MMOL/L (99-107); CHOL/HDL RATIO 3.2 (0.00-4.99); CHOLESTEROL 181 MG/DL (0-200); CREATININE 1.39 MG/DL (0.40-0.90); GLUCOSE 87 MG/DL (70-104); HDL CHOLESTEROL 57 MG/DL (35-60); LDL CHOLESTEROL 105 MG/DL (50-100); MAGNESIUM 1.6 MG/DL (1.5-2.4); POTASSIUM 4.1 MMOL/L (3.5-5.1); SODIUM 141 MMOL/L (135-145); THYROID STIMULATING HORMONE 1.38 ulU/ml (0.34-4.50); TRIGLYCERIDES 70 MG/DL (20-135); eCRCL 33 ML/MIN; eGFR 39 ML/MIN
[2025-01-21] MEDS: losartan 50mg tablet PO SCH (08:00)
--- NOTE | 2025-01-21 09:54 | CONSULTATION REPORT ---
History of Present Illness Providers to CC CC: LITZY SINGLETARY MD ~ Reason for Admit\Admit Dx: Syncope Refering MD: None History of Present Illness The patient is a 59-year-old female with a known history of unilateral left renal artery stenosis and left renal atrophy, history of a CVA with a hemorrhagic right basal ganglia infarction, hyperlipidemia, borderline personality disorder, recent ileostomy surgery for SMA stenosis, and heart failure with reduced ejection fraction (EF 30-35%) who presented with nausea, vomiting, and acute on chronic right lower abdominal pain and chronic diarrhea. She also had an episode of syncope at home. She states that this occurred following a meal at a fast food restaurant. The patient mentions that her symptoms have been present ever since her abdominal surgery she had done in August of 2024. She mentions that she has fluctuating blood pressures and therefore has not been consistent with her antihypertensive, losartan. She denies any shortness of breath or orthopnea. Of note, there is documentation from the ER that she did have orthostasis in the ER and suffered a syncopal event. During that event her blood pressure reportedly dropped from 120/80 mmHg did 90/50 mmHg. However, this also did coincide with her receiving IV morphine. She subsequently did receive a 1.5 L bolus of normal saline in the emergency room. At this point, the patient denies any chest pain, pressure, tightness, discomfort, heaviness or significant shortness of breath. She does mentioned that her blood pressure has been labile and fluctuates drastically and therefore she does not take her antihypertensives. She states that her diarrhea and abdominal pain are her major issues. Review of telemetry shows no arrhythmias. It did reveal unifocal PVCs but no noted arrhythmias and no pauses. Allergies: Coded Allergies: grape (Unverified Allergy, Severe, 08/31/24) Facial swelling Penicillins (Verified Allergy, Unknown, 06/03/24) clonidine (Verified Adverse Reaction, Intermediate, continuous orgasims, 06/03/24) Home Medications Home Medications Active Aldactone (Spironolactone) 25 Mg Tablet 1 Tab PO DAILY 30 Days Reported Losartan Potassium 50 Mg Tablet 1 Tab PO DAILY Past Medical History Medical History Comment 1. History of unilateral left renal artery stenosis with subsequent left renal atrophy 2. History of hemorrhagic CVA of the right basal ganglia 3. Heart failure with reduced ejection fraction 4. Hyperlipidemia 5. Hypertension 6. Borderline personality disorder 7. History of recent ileostomy Past Surgical History Surgical History Comment 1. s/p ileostomy bypass surgery for SMA stenosis, Past Family History Family History: FH: cancer MOTHER, History of cancer in father of infant FATHER, Past Social History Social History Comment The patient lives at home. She is bed-bound since her CVA and resultant left- sided hemiplegia. She is a former smoker but states she has not smoked for the last 3-4 months. Denies any illicit drug use Physical Exam Last Vital Signs Recorded: Temperature: 97.9, Source: Temporal, Heart Rate: 79, Respiratory Rate: 18, BP: 112/65, Pulse Oximetry: 97, Weight: 57.270 General Appearance: alert, no apparent distress EENT: moist mucous membranes Neck: normal inspection Respiratory: crackles Cardiovascular: regular rate, rhythm Rectal: deferred Extremities: no edema Neurologic: oriented x4 Review of Systems ROS ROS Comments: A full 12 point review of systems was performed and was negative unless otherwise mentioned in the HPI. Results Diagram Lab Result Diagram: 01/21/25 0600 01/21/25 0600 Lab Results Trop HS: 79 --> 82 --> 92 --> 103 BNP: > 30,000 ECG: NSR Echo (08/2024): There is severe LV systolic dysfunction present. Overall estimated LVEF is about 30%. LV is upper limit normal in size with mild concentric hypertrophy. Overall systolic funcion appears severely reduced with no evidence of thrombus visualized. RV is normal size and function. Known mild low flow low gradient aortic stenosis from prior exam 06/05/24. Moderate mitral regurgitation. Trace tricuspid regurgitation. Trace pulmonic regurgitation. Lexiscan Stress (08/2024): Impression: 1. No evidence of ischemia or scar. 2. Overall gated left ventricular systolic function was globally hypokinetic with reduced calculated LVEF of 20 % at stress. 3. Left ventricular enlargement. Assessment/Plan Additional Plan The patient is a 59-year-old female with multiple medical problems including history of heart failure with reduced ejection fraction with an EF of 30%, history of left renal artery stenosis, CVA, borderline personality disorder, hyperlipidemia, and recent ileostomy for SMA stenosis who now presents to the hospital with abdominal pain, nausea, vomiting, diarrhea, and syncope 1. Syncope: The patient did have an episode of syncope in the emergency room. Appears to be orthostatic in nature given her noted vitals at the time of the event. She has received 1.5 L of fluid in the emergency room and has been on 50 cc of normal saline since that time. Of note, she has heart failure with reduced ejection fraction and her creatinine has worsened. This all indicates that she may be fluid overloaded. At this point, would discontinue IV fluids. For her syncope, in the long run would advise her to have small frequent meals and consider use of compression stockings in the future. 2. Heart failure with reduced ejection fraction: -likely nonischemic given her negative Lexiscan stress test from August 2024 -the patient has received excess fluids in the emergency room including 1.5 L bolus as well as 50 cc of normal saline per hours since admission. Her renal function has worsened which is indicated of of fluid overload. -would recommend discontinuing IV fluids -gentle diuresis with IV Lasix -once stable and euvolemic, would consider addition of a low-dose beta ronaldo (Bisoprolol 2.5 mg QD) as well as initiation of an SGLT2 inhibitor (Farxiga 5 mg QD) -the patient is hesitant to take losartan given her prior history of syncope. She also states that she feels that losartan does not suit her. Therefore, we will consider starting the patient on a different Arb versus an ARNI once renal function improves 3. FELECIA: Please refer to above Case was discussed with the resident service. Case was also discussed with the patient's nurse as well as the patient in great detail. Please feel free to call with any questions/concerns that you may have. Thank you for allowing me to participate in the care of your patient. LITZY SINGLETARY MD January 21, 2025 09:54
[2025-01-21] MEDS ORDERED: furosemide 20 MG/2 ML vial IV ONE (10:15)
[2025-01-21] MEDS: normal saline 1000ml 1,000 ML IV SCH (11:27)
--- NOTE | 2025-01-21 13:21 | PROGRESS NOTE- Residence ---
Progress Note - Resident Providers to CC Resident Creating Document: ROSS GALLOWAY RES ~ Antibiotic Timeout Antibiotic Ordered?: Yes Subjective Seen and examined the patient bedside. Patient endorses passing out for 5 minutes after eating the food and she is feeling groggy sensation and she could not able to hold the stools... She is not feeling good and did not slept. She had a vomiting after eating hamburger. She endorses 4 times passing out since surgery August she could not able to eat properly. She had a bypass surgery for the interesting for arterial occlusion. Stroke in July. She is dehydrated. Objective Vital Signs Date Time Temp Pulse Resp B/P (MAP) Pulse Ox O2 Delivery O2 Flow Rate FiO2 01/21/25 11:00 97.9 93 19 108/61 (77) 96 Room Air 01/21/25 02:00 2.0 01/20/25 20:30 28 Result Diagram: 01/21/25 0600 01/21/25 0600 General: General: Well alert, well oriented, not confused, not agitated, not in acute distress, well cooperated during the physical. HEENT: HEENT: pale and weak looking with frail appearance. Conjunctive are pink, sclerae clear, no icterus, pupil is equal in both sides, reactive to light, no ear discharge, no pharyngeal erythema or an edema, mouth and lips are dry. Neck: Neck: Supple, no JVD, no lymphadenopathy and thyromegaly. Chest: Lungs:Equal air entry on both lungs, no additional sounds Cardiovascular: Heart: S1-S2 regular sinus rhythm and, regular rate, no gallops, no rubs, no murmurs Abdomen: Abdomen: No visible peristalsis, Bowel sounds present on auscultation, soft, tender at the Right lower abd, no guarding, no rigidity Extremities: Extremities: No obvious deformities, no pitting edema bilaterally, capillary refill intact, able to wiggle toes both sides, peripheral pulsations are intact on both sides Central Nervous System: MARGIN TRIMMER: No focal neurological deficits except for the left sided hemiplegia, no motor and sensory weakness in other extremities, could move all 4 extremities Musculoskeletal: Musculoskeletal: No joint swelling, deformities, inflammations, and no scoliosis and back tenderness Skin: Skin: No active skin lesions and rashes Advance Care Planning Advanced Care plannin - 30 Minutes Plan Plan Syncope with a possible dumping syndrome Acute gastroenteritis -was given 1.5 L of normal saline bolus followed by IV 0.9% sodium chloride 50 mL/hr -I's and O's monitoring -Given one time dose of IV Benadryl 25 mg in ER for her possible morphine allergy -no signs and symptoms of GI infection from food poisoning at the moment. -continuous telemetry monitoring -control the abdominal pain with Tylenol/Dilaudid as needed 01/21/2025 - ordered MRI brain and lactic acid, EEG to rule out seizures /a cerebrovascular accidents -Patient is looking dehydrated and we put her back on 100 mL per hour of normal saline # Mildly elevated Troponins - due to T2MI # Hx of CHFrEF 35% -serial troponin level show 32-87-80-103 -no S/S acute CHF exacerbation at the moment -gently hydrate the patient with IV normal saline 50 mL/hr -cardiology Dr. Soha michelle was requested for the consultation and aware of the patient's admission by recommending gentle hydration. Do not recommend for stress test again. -last time stress test showed negative for reversible ischemic changes. 01/21/2025- Dr. Brewer-per Dr. brewer -once stable and euvolemic, would consider addition of a low-dose beta ronaldo (Bisoprolol 2.5 mg QD) as well as initiation of an SGLT2 inhibitor (Farxiga 5 mg QD) -the patient is hesitant to take losartan given her prior history of syncope. She also states that she feels that losartan does not suit her. 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 losartan 50 mg daily 01/21/2025: CONTINUE IV FLUIDS AT THE RATE OF 100 ML/HOUR # acute on chronic abdominal pain from the Chronic SMA # chronic diarrhea history -monitor bowel movement, continue IV fluid replacement, control the pain with Tylenol/Dilaudid as needed. # frequency and nocturia -WBC normal, vitals were stable -pending UA and C&S results to be follow up. # history of CVA with left-sided hemiplegia # history of hyperlipidemia -medication reconciliation was pending, PT eval CODE STATUS: Full code DVT prophylaxis: Sc heparin Analgesia/sedation: Acetaminophen/ Dilaudid Lines/tubes: Peripheral IV GI prophylaxis: None Nutrition: Heart healthy Prognosis: Guarded Ross Galloway IM resident Date of Service: January 21, 2025 Billing Provider: ALYSSA FORREST MD Common Visit Codes: [id number] INP/OBS CARE(HIGH) ROSS GALLOWAY, RES January 21, 2025 13:21 ALYSSA FORREST MD January 26, 2025 06:43
[2025-01-21] MEDS: LORazepam 1 MG tablet PO STA (13:38)
--- NOTE | 2025-01-21 15:45 | RADIOLOGY REPORT ---
CLINICAL INDICATION: syncope COMPARISON: CT CT HEAD on DOS: 08/31/24, MR MRI HEAD on DOS: 06/06/24, CT CT HEAD on DOS: 06/05/24 TECHNIQUE: Multisequence multiplanar MRI images of the brain were obtained without contrast. FINDINGS: Small 5 mm focus of hyperintense signal in the diffusion-weighted images in the left front al lobe white matter, with questionable hypointense signal in this location on the ADC map, possible small focus of acute or subacute ischemia. Subtle 5 mm area of hyperintense signal on the diffusion-w eighted images in the right frontal lobe white matter with questionable hypointense signal in this lo cation on diffusion-weighted imaging, possible acute or subacute ischemia. Scattered areas of T2/FLAI R hyperintense signal in the periventricular and subcortical white matter. There appear to be chronic lacunar infarcts in the left thalamus and in the right basal ganglia. Small chronic lacunar infarct in the right cerebellar hemisphere. Patchy area of T2/FLAIR hyperintense signal in the right cerebral peduncle of the there is a tract of T2/FLAIR hyperintense signal extending from the right internal c apsule, midbrain, and kim, likely wallerian degeneration. No mass or midline shift. Mild mucosal t hickening of the paranasal sinuses. Orbits are grossly unremarkable. IMPRESSION: 1. Small 5 mm foci of restricted diffusion in the bilateral frontal lobe white matter as described ab salvador, possible small foci of acute or subacute ischemia. Small areas of acute demyelination could also be considered. 2. Scattered areas of T2/FLAIR hyperintense signal in the periventricular and subcortical white matte r are nonspecific, but most likely sequelae of chronic small vessel ischemic disease. Demyelinating d isease could also have a similar appearance in the appropriate clinical setting. 3. Suspected chronic lacunar infarcts in the left thalamus, right basal ganglia, and right cerebellar hemisphere. 4. Likely wallerian degeneration along the right internal capsule, midbrain, and kim
[2025-01-21] MEDS ORDERED: hydrALAZINE 20mg/ml inj. IV PRN (17:25)
[2025-01-22 02:00] VITALS: BP 154/95; PULSE 88; RESP 17; TEMP 97.3; O2SAT 99
--- NOTE | 2025-01-22 05:18 | ELECTROCARDIOGRAPH REPORT ---
[facility] Test Date: 2025-01-20 Test Time: 16:21:05 Pat Name: TRAVIS ESPARZA Department: SHORT STAY 1ST FLOOR Room: [place] [id number] A Gender: F Colliery Clerk: ANETA : 1965 Requested By: ALYSSA FORREST Order Number: [id number] Reading MD: Dr. Drew Miller Measurements Intervals Donald Rate: 67 P: 107 OK: 146 QRS: 87 QRSD: 95 T: 95 QT: 451 QTc: 476 Interpretive Statements Sinus rhythm LVH w/ repol abnormalities, possible ischemia Electronically Signed On 01-22-2025 18:42:[address] Drew Miller Please click the below link to view image of tracing.
[2025-01-22 07:00] VITALS: BP 149/63; PULSE 73; RESP 13; TEMP 96.9; O2SAT 99
[2025-01-22 07:09] LABS: BASOPHILS % (AUTO) 0.4 % (0-1); EOSINOPHILS # (AUTO) 0.1 X10'3 (0-0.9); EOSINOPHILS % (AUTO) 2.6 % (0-6); HEMATOCRIT 29.1 % (35.0-45.0); HEMOGLOBIN 9.7 g/dl (12.0-16.0); LYMPHOCYTES % (AUTO) 21.9 % (21-51); MEAN CORPUSCULAR HEMOGLOBIN 28.3 PG (27.0-31.0); MEAN CORPUSCULAR HGB CONC 33.2 g/dL (33.0-36.5); MEAN CORPUSCULAR VOLUME 85.1 FL (78-98); MEAN PLATELET VOLUME 8.5 FL (7.4-10.4); MONOCYTES # (AUTO) 0.4 X10'3 (0-0.9); MONOCYTES % (AUTO) 9.6 % (2-12); NEUTROPHILS # (AUTO) 2.9 X10'3 (1.8-7.7); NEUTROPHILS % (AUTO) 65.5 % (42-75); PLATELET COUNT 192 X10'3 (140-440); RED BLOOD COUNT 3.42 X10'6 (4.20-5.60); RED CELL DISTRIBUTION WIDTH 14.4 % (11.5-14.5); WHITE BLOOD COUNT 4.4 X10'3 (4.5-11.0)
[2025-01-22 07:43] LABS: ALANINE AMINOTRANSFERASE 13 U/L (12-78); ALBUMIN 2.8 G/DL (3.4-5.0); ALBUMIN/GLOBULIN RATIO 0.9 (1.1-1.5); ALKALINE PHOSPHATASE 68 IU/L (46-116); ANION GAP 11 (8-16); BILIRUBIN,TOTAL 0.4 MG/DL (0.1-1.0); BLOOD UREA NITROGEN 50 MG/DL (7-18); BUN/CREATININE RATIO 44.2 (10.0-20.0); CALCIUM 8.8 MG/DL (8.5-10.1); CHLORIDE 105 MMOL/L (99-107); CREATININE 1.13 MG/DL (0.40-0.90); GLUCOSE 80 MG/DL (70-104); MAGNESIUM 1.9 MG/DL (1.5-2.4); SODIUM 135 MMOL/L (135-145); TOTAL CARBON DIOXIDE 19.4 MMOL/L (24-32); eCRCL 40 ML/MIN; eGFR 49 ML/MIN
[2025-01-22 07:44] LABS: ASPARTATE AMINO TRANSFERASE 33 U/L (10-37); POTASSIUM 4.2 MMOL/L (3.5-5.1)
[2025-01-22 11:00] VITALS: BP 129/74; PULSE 83; RESP 13; TEMP 97.4; O2SAT 99
--- NOTE | 2025-01-22 14:07 | CONSULTATION REPORT ---
History of Present Illness Providers to CC ~ Reason for Admit\Admit Dx: Syncope Refering MD: None History of Present Illness [place] Neuro Note # Demographics Consult Type: General Neurology Patient Location: Inpatient First Name: Marla Last Name: Leticia Date of : 1965 Age: 59 Gender: Female Facility: [facility] Time of Initial Page (): 01/22/2025 11:35 Time of Return Call (): 01/22/2025 11:36 # HPI History: 59yo woman has had multiple episodes of LOC and passing out. She states she has had multiple episodes since she had a stroke in July of 2024. She states she cannot think of anything that triggers these events. She will have 2 events per day on average. She has no warning that these are coming on. After this most recent event, she states she didn't feel right, and then had LOC for 2-3 minutes. After these episodes, she feels tired but does not lose urine or stool, nor any tongue biting. There is no shaking noted. In the ED, she was noted to be orthostatic. # Scores Time of exam and NIHSS (): 01/22/2025 13:16 Level of Consciousness 1a: [0] = Alert; keenly responsive LOC Questions 1b: [0] = Answers both questions correctly LOC Commands 1c: [0] = Performs both tasks correctly Best Gaze 2: [0] = Normal Visual 3: [0] = No visual loss Facial Palsy 4: [0] = Normal symmetrical movements Motor Arm Left 5a: [0] = No drift Motor Arm Right 5b: [0] = No drift Motor Leg Left 6a: [3] = No effort against gravity Motor Leg Right 6b: [0] = No drift Limb Ataxia 7: [0] = Absent Sensory 8: [0] = Normal Best Language 9: [0] = No aphasia Dysarthria 10: [0] = Normal Extinction and Inattention 11: [0] = No abnormality NIHSS Total: 3 # Assessment Impression: - Other - Ischemic Stroke (Subacute) Syncope, less likely seizure. Her MRI does show much more advanced atrophy that would be expected for age. # Plan Target Blood Pressure: - SBP < 220 - SBP > 110 Labs: - lipid panel Imaging: (urgency: routine): - CT Angiogram Head and CT Angiogram Neck AND call back with results if abnormal Diagnostic Test: - echo with bubble study Therapy/Evaluation: - PT/OT evaluation Medication: - aspirin 81 mg daily Other: - If patient has any neurological deterioration please call me back immediately - LDL < 70 - telemetry monitoring - I have discussed my recommendations with the referring provider - neurology referral as outpatient Disposition: continue admission # Demographics First Name: Marla Last Name: [place] Facility: [facility] Allergies: Coded Allergies: grape (Unverified Allergy, Severe, 08/31/24) Facial swelling Penicillins (Verified Allergy, Unknown, 06/03/24) clonidine (Verified Adverse Reaction, Intermediate, continuous orgasims, 06/03/24) Home Medications Home Medications Active Aldactone (Spironolactone) 25 Mg Tablet 1 Tab PO DAILY 30 Days Reported Losartan Potassium 50 Mg Tablet 1 Tab PO DAILY Past Family History Family History: FH: cancer MOTHER, History of cancer in father of infant FATHER, Physical Exam Last Vital Signs Recorded: Temperature: 97.4, Source: Temporal, Heart Rate: 83, Respiratory Rate: 13, BP: 129/74, Pulse Oximetry: 99, Weight: 57.270 General Appearance: alert, no apparent distress EENT: moist mucous membranes Neck: normal inspection Respiratory: crackles Cardiovascular: regular rate, rhythm Rectal: deferred Extremities: no edema Neurologic: oriented x4 Results Diagram Lab Result Diagram: 01/22/25 0632 01/22/25 0637 RACHID YE MD January 22, 2025 14:07
[2025-01-22 15:00] VITALS: BP 154/71; PULSE 86; RESP 14; TEMP 97.1; O2SAT 99
--- NOTE | 2025-01-22 15:42 | PROGRESS NOTE- Residence ---
Progress Note - Resident Providers to CC Resident Creating Document: THAI ESPANA, RES ~ Central Line/PICC still needed: No Sarmiento-Non Protocol Sarmiento Indications Met/Not Met: F/C Indications Not Met Antibiotic Timeout Antibiotic Ordered?: No Subjective Patient examined at bedside. Spoke to the on the phone while also talking to the patient. Both patient and the reports that the night before the episode the patient had complained of feeling uneasiness. She ate a hamburger followed by recurrent episodes of vomiting and went to bed after. She woke up with extreme weakness requiring help to be able to ambulate to the washroom. While she was urinating, she passed out with no presyncopal events. Patient was passed out for almost about 3 minutes. Denies waking up with loss of incontinence of bowel or bladder, confusion or headaches. He reports that when the ambulance was called, her blood pressure was in fact really high. Similar episode also occurred one other time but none have occurred outside the house a while not emptying her bladder from the history provided today. Objective Vital Signs Date Time Temp Pulse Resp B/P (MAP) Pulse Ox O2 Delivery O2 Flow Rate FiO2 01/22/25 11:00 97.4 83 13 129/74 (92) 99 Nasal Cannula 3.0 01/21/25 20:00 28 Result Diagram: 01/22/25 0632 01/22/25 0637 General: Awake and Alert, no acute distress. HEENT: Conjunctiva pink, Sclera clear, Mucus Membranes moist. Resp: Unlabored. Lungs clear to auscultation bilaterally. Heart: Regular Rate and rhythm, normal S1 and S2, pansystolic grade 2 murmur Abdomen: Soft and non tender no organomegaly INFORMATION TECHNOLOGY ARCHITECT: Awake, alert, oriented x4. No cranial nerve deficits. Left upper arm drift present. 3- motor strength in the left upper extremity, 3+ in the right upper extremity. Sensory deficits not examined Extremities: No cyanosis,clubbing or edema. Skin: Warm and Dry. No rashes Assessment Assessment This is a 59-year-old female patient with a past medical history of heart failure with reduced EF, ileostomy bypass surgery for SMA stenosis, unilateral left artery stenosis and left renal atrophy, status post ischemic CVA of the right basal ganglia and small hemorrhage resulting into left-sided hemiplegia, bed-bound, hyperlipidemia, and psychiatric history presents to the hospital with complaints of a recurrent syncopal episode at home. Plan Plan 1. Syncope: Differentials: Vasovagal syncope/cardiac syncope History of left-sided hemiplegia from right basal ganglia and right cerebellar stroke Continue telemetry monitoring MRI head reveals presence of a small 5 mm foci of restricted diffusion in the bilateral frontal lobe white matter which could be acute or subacute. Chronic lacunar infarcts in the left thalamus, right basal ganglia in the right cerebellar hemisphere. We will leading degeneration of the right internal capsule, midbrain and kim Cardiology evaluated the patient, did remind the cause of the stroke likely secondary to orthostatic hypotension Tele neurology diagnosed the patient with acute subacute ischemic stroke but with advanced atrophy for expected age. Recommends CTA head and neck, echocardiogram with bubble study, ordered and to be followed. Also recommend aspirin 81 mg daily. Unable to tolerate orthostatics. We will try to attempt orthostatic in a.m. Fall precautions in place. Continue telemetry monitoring 2. Heart failure with reduced ejection fraction: No acute exacerbation Nonischemic heart failure. Lexiscan in August 2024 Recommend starting bisoprolol 2.5 mg daily and Farxiga 5 mg daily after stabilization starting tomorrow. We will start bisoprolol tonight and look for symptoms Has been started on her home medication of losartan 3. FELECIA on CKD stage 3: Improving Likely secondary to vasomotor nephropathy History of in his left arterial stenosis and left renal atrophy Dehydration can also be seen as hemoglobin and platelets have also decreased in count Creatinine 1.1, BUN elevated at 50. Elevated BUN/creatinine ratio Follow CMP Code status: Full code DVT prophylaxis: SQ heparin Lines: PIV GI prophylaxis: None Nutrition: Heart healthy Prognosis: Guarded Disposition: Awaiting physical therapy [place] PGY2, Internal medicine resident Date of Service: January 22, 2025 Billing Provider: MATHIEU LOVE MD Common Visit Codes: [id number] INP/OBS CARE(HIGH) THAI ESPANA, RES January 22, 2025 15:42 MATHIEU LOVE MD January 22, 2025 19:20
--- NOTE | 2025-01-22 16:15 | PROCEDURE NOTE ---
Procedure Note Providers to CC ~ Description: [place] EEG Note # Demographics Type of EEG Read: - Routine EEG - video Patient Location: Inpatient First Name: Marla Last Name: Leticia Date of : 1965 Age: 59 Gender: Female Facility: [facility] Time of Initial Page ([place] ): 01/22/2025 10:56 Time of Return Call ([place] Time): 01/22/2025 10:57 # EEG Interpretation Start Time of EEG Read (): 01/22/2025 11:12 Stop Time of EEG Read ([place] ): 01/22/2025 11:32 Duration: 0h 20m Technical Details: - The EEG electrodes were placed using the standard International 10-20 system of electrode placement. Video and an accessory EKG lead were used during the course of this study. - This study was recorded using the [employer] EEG software Indication: - syncope - seizure # Description Photic Stimulation: Performed Hyperventilation: NOT performed Phases Captured: - awake Symmetry: symmetric Posterior Dominant Rhythm: - present, attenuates on eye opening 9-10 Hz Predominant Frequencies: - non-posterior dominant alpha (8-12 Hz) - abundant (50-89%) Superimposed Frequencies: - beta (>15 Hz) - occasional (1-9%) Amplitude: normal Reactivity: yes Variability: yes Continuity: continuous EKG: NSR # Abnormalities Stimulation: - photic stimulation does NOT cause abnormalities Epileptiform Abnormalities: - NOT present Focal Slowing: no Seizure: - NOT present # Impression Impression: normal # Clinical Correlation Clinical Correlation: A normal EEG does not exclude nor support the diagnosis of epilepsy. # Demographics First Name: Marla Last Name: Leticia Facility: [facility] PATRICIA MAYNARD MD January 22, 2025 16:15
--- NOTE | 2025-01-22 16:56 | PROGRESS NOTE ---
Progress Note Cardiology Providers to CC ~ Subjective Subjective Patient is examined this afternoon for Dr. May's Service. No chest pain or pressure. No shortness a breath. Denies dizziness, lightheadedness. Nonambulatory and wheelchair-bound at baseline. Her only complaint is that she is hungry and they are not feeding her enough. She is concerned that she got discharged home with a different blood pressure pill that caused significant fluctuations in her blood pressure. Objective Vitals Vital Signs Date Time Temp Pulse Resp B/P (MAP) Pulse Ox O2 Delivery O2 Flow Rate FiO2 01/22/25 11:00 97.4 83 13 129/74 (92) 99 Nasal Cannula 3.0 01/21/25 20:00 28 Result Diagram: 01/22/25 0632 01/22/25 0637 Objective General: Awake, alert, oriented. No apparent distress Neck: Supple. Normal range of motion. No JVD Respiratory: Lungs are clear to auscultation bilaterally. No respiratory distress. Chest: Normal shape and size. No accessory muscle use. Cardiovascular: Regular rate and rhythm. S1-S2. No murmur, gallop, rub. Extremities: No lower extremity edema, cyanosis or clubbing. Neurologic: Alert and oriented x4. Nonfocal Psychiatric: Normal mood and affect. Skin: Normal color. Warm and dry. Problem\Assessment\Plan Additional Plan The patient is a 59-year-old female with multiple medical problems including history of heart failure with reduced ejection fraction with an EF of 30%, history of left renal artery stenosis, CVA, borderline personality disorder, hyperlipidemia, and recent ileostomy for SMA stenosis who now presents to the hospital with abdominal pain, nausea, vomiting, diarrhea, and syncope 1. Syncope: The patient did have an episode of syncope in the emergency room. Appears to be orthostatic in nature given her noted vitals at the time of the event. She has received 1.5 L of fluid in the emergency room and has been on 50 cc of normal saline since that time. No current symptoms of dizziness or syncope. --Recommend small frequent meals and consider use of compression stockings in the future. 2. Heart failure with reduced ejection fraction, acute on chronic -likely nonischemic given her negative Lexiscan stress test from August 2024 repeat TTE pending. -gentle diuresis with IV Lasix -once stable and euvolemic, would consider addition of a low-dose beta ronaldo (Bisoprolol 2.5 mg QD) as well as initiation of an SGLT2 inhibitor (Farxiga 5 mg QD) -the patient is hesitant to take losartan given her prior history of syncope. She also states that she feels that losartan does not suit her. Therefore, we will consider starting the patient on a different Arb versus an ARNI once renal function improves 3. FELECIA: Please refer to above 4. History of CVA with left-sided deficits Case discussed with Dr. May. Supervising Physician: BENJAMÍN Anderson NP January 22, 2025 16:56
[2025-01-22] MEDS ORDERED: iohexol 300mg/ml 100ml inj. ONE (16:57)
[2025-01-22] MEDS ORDERED: iohexol 350MG/ML 100ml bottle IV ONE (16:58)
--- NOTE | 2025-01-22 17:18 | CARDIOLOGY REPORT ---
APPROVED REPORT EXAM: Comprehensive 2D, Doppler, and color-flow Echocardiogram. Patient Location: 3026 [address] Blood Pressure: 154/71 mmHg Heart Rate: 80 bpm Rhythm: SINUS Indications TRANSIENT ISCHEMIC ATTACK SYNCOPE HYPERLIPIDEMIA HYPERTENSION Plastic Injection Mold Maker: none Previous echo: 09/01/24 [facility] (EF 30%, mod MR, trace TR, trace PI, LFLG mild ) 2D Dimensions RVDd 2.4 cm LA Diam5.3 cm IVSd 1.4 (0.7-1.1cm) LVDd 5.4 cm PWd 1.5 (0.7-1.1cm) IVSs 1.2 (0.8-1.2cm) LVDs 4.1 (2.5-4.0cm) PWs 1.6 (0.8-1.2cm) LVOT Diameter 2.09 (1.8-2.4cm) LVEF(%) 37.5 (>50%) FS (%) 24.1 % SV 67.7 ml CO 5.3 L/min M-Mode Dimensions Left Atrium(MM) 4.28 (2.5-4.0cm) Aortic Root 3.26 (2.2-3.7cm) Aortic Cusp Exc 1.68 (1.5-2.0cm) MV EPSS 2.0 (<0.5cm) Biplane 2D LA Volumes LA ESV Index 37.10 mL/m2 Aortic Valve AoV Peak Franco. 286.4 cm/s AoV VTI 44.9 cm AO Peak GR. 32.8 mmHg AO Mean GR. 17 mmHg LVOT VTI 21.92 cm LVOT Peak Franco. 124.7 cm/s JHON(VTI)/BSA 1.68 cm2/m2 JHON (VTI) 1.68 cm2 Mitral Valve MV E Velocity 99.9 cm/s MV Peak Gr. 8 mmHg MV DECEL TIME 232 ms MV A Velocity 134.3 cm/s MV PHT 42 ms E/A Ratio 0.7 MVA (PHT) 5.24 cm2 MV MXxn777.8 cm/s TDI Medial E' P. V 5.94 cm/s E/Medial E' 16.8 Tricuspid Valve TR P. Velocity 284 cm/s RAP ESTIMATE 10 mmHg TR Peak Gr. 32 mmHg RVSP 42 mmHg Pulmonary Vein S1 Velocity 61.2 cm/s D2 Velocity 46.4 cm/s PVa Nqveurkl11.5 cm/s PVa [id number] msec LEFT VENTRICLE Normal LV size and moderately reduced function. Mild concentric hypertrophy. LVEF is 35%. RIGHT VENTRICLE RV size and function appear normal. RVSP is estimated at 42 mmHg. ATRIA Left atrium is moderately dilated. AORTIC VALVE Trileaflet AV appears mildly sclerotic and calcified with mild stenosis. JHON is measured at 1.68 cmsq . Peak / mean gradients of 32 / 17 mmHG. Peak velocity is measured at 2.86 m/sec. Trace insufficiency . MITRAL VALVE Mild MV annular calcification and leaflet thickening without stenosis. Mild regurgitation. TRICUSPID VALVE TV appears structurally normal with trace regurgitation. PULMONIC VALVE Normal PV without stenosis, physiologic insufficiency. GREAT VESSELS The aortic root is normal in size. PERICARDIUM Normal pericardium. No effusion. Other Information Study Quality: Adequate Conclusion Normal LV size and moderately reduced function. Mild concentric hypertrophy. LVEF is 35%. RV size and function appear normal. RVSP is estimated at 42 mmHg. Left atrium is moderately dilated. Trileaflet AV appears mildly sclerotic and calcified with mild stenosis. JHON is measured at 1.68 cmsq . Peak / mean gradients of 32 / 17 mmHG. Peak velocity is measured at 2.86 m/sec. Trace insufficien cy. Mild MV annular calcification and leaflet thickening without stenosis. Mild regurgitation. TV appears structurally normal with trace regurgitation. Normal pericardium. No effusion.
[2025-01-22 17:44] VITALS: O2SAT 99
[2025-01-22] MEDS: metoprolol succinate 25mg (24-HOUR) SR. Tablet PO SCH (17:58)
[2025-01-22] MEDS: aspirin 81mg, enteric-coated 1 TAB TABLET.DR PO SCH (17:59)
--- NOTE | 2025-01-22 18:11 | RADIOLOGY REPORT ---
EXAM: CT CTA NECK/HEAD HISTORY: Syncopal episodes COMPARISON: None TECHNIQUE: CTA imaging of the neck and head was performed following the uneventful administration of intravenous contrast. Sagittal and coronal reformatted images were obtained from the source data. 3D /MIP post-processing of the source data set was performed and reviewed by the radiologist. Radiation Dose Information: CT Dose: CTDI volume is 14, 14 mGy. Dose-length product is 589.9 mGy*cm All CT scans at this medical facility are performed using dose modulation techniques as appropriate t o a performed exam including the following: Automated exposure control was utilized; adjustment of th e MA and/or KV according to patient size; and use of iterative reconstruction technique. FINDINGS: CTA Neck: Aortic Arch: Conventional branching. Right brachiocephalic artery: Unremarkable. Right carotid artery: Moderate calcified plaque formation at the carotid bulb and proximal ICA with a pproximately 50% stenosis. Right subclavian artery: Unremarkable. Right vertebral artery: Unremarkable. Left carotid artery: Moderate mixed plaque formation at the carotid bulb ICA with approximately 50% stenosis. Left subclavian artery: Unremarkable. Left vertebral artery: High-grade stenosis/occlusion. Other: Biapical emphysematous changes noted. Multilevel degenerative disc disease of the cervical spi ne noted. CTA Head: [place]: Minimal plaque formation of the bilateral carotid siphons noted. The bilateral ant erior cerebral, middle cerebral and posterior cerebral arteries are patent. Persistent origin of the left posterior cerebral artery noted. The the basilar artery is patent. The right vertebral a rtery is patent. Distal intracranial left vertebral artery is occluded. Dural venous: Grossly unremarkable. Other: None. IMPRESSION: 1. High-grade stenosis/ occlusion of the cervical vertebral artery distal segment of the intracranial vertebral artery. The right vertebral artery, basilar artery and bilateral posterior cerebral arteri es are patent. 2. Moderate calcified plaque formation of the bilateral carotid bulb and proximal cervical internal c arotid arteries with approximately 50% stenosis. Findings discussed with YELENA Aragon at 01/22/2025 05:57 PM, and acknowledged receipt and understanding of the findings. ..
[2025-01-22 20:00] VITALS: RESP 20; O2SAT 100
[2025-01-22] MEDS ORDERED: bisoprolol 5mg tablet PO SCH (20:00)
[2025-01-22] MEDS: acetaminophen 325mg tablet PO PRN (20:14)
[2025-01-23 02:00] VITALS: BP 153/86; PULSE 67; RESP 16; TEMP 97; O2SAT 100
[2025-01-23 02:20] LABS: URINE AMPHETAMINE SCREEN NEGATIVE (Neg); URINE BARBITUATE SCREEN NEGATIVE (Neg); URINE BENZODIAZEPINES SCREEN NEGATIVE (Neg); URINE CANNABINOID SCREEN NEGATIVE (Neg); URINE COCAINE SCREEN NEGATIVE (Neg); URINE METHADONE SCREEN NEGATIVE (Neg); URINE OPIATE SCREEN NEGATIVE (Neg); URINE PHENCYCLIDINE SCREEN NEGATIVE (Neg)
[2025-01-23 02:26] LABS: BILIRUBIN,URINE NEGATIVE (Neg); CLARITY,URINE CLEAR (Clear); COLOR,URINE YELLOW (Yellow); GLUCOSE, URINE NEGATIVE (Neg); KETONES,URINE NEGATIVE (Neg); LEUKOCYTE ESTERASE ,URINE NEGATIVE (Neg); NITRITES, URINE NEGATIVE (Neg); OCCULT BLOOD,URINE NEGATIVE (Neg); PROTEIN,URINE NEGATIVE (Neg); UROBILINOGEN,URINE 0.2 E.U/dL (0.2-1.0)
[2025-01-23 02:27] LABS: UA COLLECTION TYPE STRAIGHT CATH
[2025-01-23 07:00] VITALS: BP 184/110; PULSE 71; RESP 14; TEMP 97.3; O2SAT 100
[2025-01-23 07:08] LABS: BASOPHILS % (AUTO) 0.3 % (0-1); EOSINOPHILS # (AUTO) 0.1 X10'3 (0-0.9); EOSINOPHILS % (AUTO) 2.6 % (0-6); HEMATOCRIT 30.8 % (35.0-45.0); HEMOGLOBIN 10.1 g/dl (12.0-16.0); LYMPHOCYTES % (AUTO) 17.7 % (21-51); MEAN CORPUSCULAR HEMOGLOBIN 28.2 PG (27.0-31.0); MEAN CORPUSCULAR HGB CONC 32.8 g/dL (33.0-36.5); MEAN CORPUSCULAR VOLUME 85.8 FL (78-98); MEAN PLATELET VOLUME 8.4 FL (7.4-10.4); MONOCYTES # (AUTO) 0.6 X10'3 (0-0.9); MONOCYTES % (AUTO) 11.5 % (2-12); NEUTROPHILS # (AUTO) 3.7 X10'3 (1.8-7.7); NEUTROPHILS % (AUTO) 67.9 % (42-75); PLATELET COUNT 192 X10'3 (140-440); RED BLOOD COUNT 3.58 X10'6 (4.20-5.60); RED CELL DISTRIBUTION WIDTH 14.4 % (11.5-14.5); WHITE BLOOD COUNT 5.4 X10'3 (4.5-11.0)
[2025-01-23 07:34] LABS: ALANINE AMINOTRANSFERASE 12 U/L (12-78); ALBUMIN 2.9 G/DL (3.4-5.0); ALBUMIN/GLOBULIN RATIO 0.9 (1.1-1.5); ALKALINE PHOSPHATASE 69 IU/L (46-116); ANION GAP 7 (8-16); ASPARTATE AMINO TRANSFERASE 15 U/L (10-37); BILIRUBIN,TOTAL 0.2 MG/DL (0.1-1.0); BLOOD UREA NITROGEN 43 MG/DL (7-18); BUN/CREATININE RATIO 36.4 (10.0-20.0); CALCIUM 9.2 MG/DL (8.5-10.1); CHLORIDE 107 MMOL/L (99-107); CREATININE 1.18 MG/DL (0.40-0.90); GLUCOSE 80 MG/DL (70-104); MAGNESIUM 1.8 MG/DL (1.5-2.4); POTASSIUM 4.3 MMOL/L (3.5-5.1); SODIUM 139 MMOL/L (135-145); TOTAL CARBON DIOXIDE 25.1 MMOL/L (24-32); TOTAL PROTEIN 6.3 G/DL (6.4-8.2); eCRCL 39 ML/MIN; eGFR 47 ML/MIN
[2025-01-23] MEDS: DAPAGLIFLOZIN 10MG TABLET PO SCH (08:11)
[2025-01-23 11:00] VITALS: BP 158/76; PULSE 66; RESP 17; TEMP 96.7; O2SAT 94
[2025-01-23] MEDS ORDERED: DAPA10TA PO (12:30)
[2025-01-23] MEDS ORDERED: METO-395 PO (12:30)
[2025-01-23] MEDS ORDERED: POLY17PO10 PO (12:30)
[2025-01-23] MEDS ORDERED: ATOR40TA72 PO (12:30)
[2025-01-23] MEDS ORDERED: CLOP-32 PO (12:30)
[2025-01-23] MEDS ORDERED: ASPI-1071 PO (12:30)
--- NOTE | 2025-01-23 12:38 | PROGRESS NOTE ---
Progress Note Cardiology Providers to CC ~ Subjective Subjective Patient has no chest pain or pressure. No dizziness, lightheadedness. No shortness a breath at rest. Objective Result Diagram: 01/23/25 0601/23/25641 Objective General: Awake, alert, oriented. No apparent distress Neck: Supple. Normal range of motion. No JVD Respiratory: Lungs are clear to auscultation bilaterally. No respiratory distress. Chest: Normal shape and size. No accessory muscle use. Cardiovascular: Regular rate and rhythm. S1-S2. No murmur, gallop, rub. Extremities: No lower extremity edema, cyanosis or clubbing. Psychiatric: Normal mood and affect. Skin: Normal color. Warm and dry. Problem\Assessment\Plan Additional Plan The patient is a 59-year-old female with multiple medical problems including history of heart failure with reduced ejection fraction with an EF of 30%, history of left renal artery stenosis, CVA, borderline personality disorder, hyperlipidemia, and recent ileostomy for SMA stenosis who now presents to the hospital with abdominal pain, nausea, vomiting, diarrhea, and syncope 1. Syncope: The patient did have an episode of syncope in the emergency room. Appears to be orthostatic in nature given her noted vitals at the time of the event. She has received 1.5 L of fluid in the emergency room and has been on 50 cc of normal saline since that time. No current symptoms of dizziness or syncope. --Recommend small frequent meals and consider use of compression stockings in the future. 2. Heart failure with reduced ejection fraction, acute on chronic -likely nonischemic given her negative Lexiscan stress test from August 2024 repeat TTE LVEF 35%. -gentle diuresis with IV Lasix -once stable and euvolemic, would consider addition of a low-dose beta ronaldo (Bisoprolol 2.5 mg QD) as well as initiation of an --SGLT2 inhibitor (Farxiga 5 mg QD) --patient receiving losartan 3. FELECIA: Please refer to above 4. History of CVA with left-sided deficits MRI showed multiple strokes in the past. She would benefit from an outpatient event monitor. Case discussed with Dr. May. We will need outpatient follow up. We will need to see primary care provider for referral for outpatient cardiology. Supervising Physician: BENJAMÍN Anderson NP January 23, 2025 12:38
--- NOTE | 2025-01-23 16:46 | DISCHARGE SUMMARY-Residence ---
Discharge Summary Providers to CC Resident Creating Document: THAI ESPANAKYLE ~ Discharge Summary Admission Diagnosis: Syncope with bradycardia, CHF Hospital Course DATE OF ADMISSION: 01/20/2025 DATE OF DISCHARGE: 01/23/2025 Discharge Diagnosis\Comment: Syncope- vasovagal/orthostatic/cardiogenic/cerebrovascular Heart failure with reduced ejection fraction in no acute exacerbation FELECIA and CKD stage 3 Operations\Procedures: EEG Consultants: Neurology, Cardiology Complications: None Condition on DC: Stable for transfer New Medications: Atorvastatin Calcium (Atorvastatin Calcium) 40 Mg Tablet 1 TAB PO DAILY for 30 Days, #30 TAB 0 Refills Clopidogrel Bisulfate (Plavix) 75 Mg Tablet 1 TAB PO DAILY for 21 Days, #21 TAB 0 Refills Polyethylene Glycol 3350* (Miralax*) 1 Packet Packet 1 PKT PO DAILY for constipation, #30 PKT dissolve in water Aspirin (Ecotrin*) 81 Mg Tablet.dr 1 TAB PO DAILY, #90 TAB.SR Dapagliflozin Propanediol (Farxiga) 10 Mg Tablet 5 MG PO DAILY, #30 TAB Metoprolol Succinate (Metoprolol Succinate) 25 Mg Tab.sr.24h 25 MG PO DAILY, #30 TAB.SR Continued Medications: Losartan Potassium (Losartan Potassium) 50 Mg Tablet 1 TAB PO DAILY Spironolactone (Aldactone) 25 Mg Tablet 1 TAB PO DAILY for 30 Days, #30 TAB 0 Refills Discharge Summary: 59-year-old female patient with a past medical history of heart failure with reduced EF, ileostomy bypass surgery for SMA stenosis, unilateral left artery stenosis and left renal atrophy, history of multiple CVA including lack in his strokes, basal ganglia and cerebellar strokes, bilateral frontal lobe strokes as well presented to the hospital due to a syncopal episode. She was evaluated in the ER for the orthostatics during which she had another syncopal episode. However, her history was also pointing towards vasovagal syncope due to the occurrence of episodes during increased intra-abdominal pressure such as urinating. Considering the fact that every time EMS had come in during these episodes her blood pressure was significantly high and with a prior history of CVA, differential diagnosis include hypertensive emergency versus acute CVA. Acute loss of consciousness was pointing further towards cardiogenic syncope. All of the possibilities including seizures with EEGs and arrhythmias with telemetry monitoring we are ruled out within the time limit that she was here. Heart failure with reduced EF remained stable throughout the hospitalization not requiring treatment. MRI was done which revealed no new strokes, CTA head and neck showed a chronic left vertebral complete occlusion. Tele neurology was consulted who recommended starting the patient on DAPT plus statin. Patient was counseled extensively regarding the need to maintain compliance with all medications for CVA as well as for heart failure. She is usually bed-bound at home, lives at home with the . Appointment with her PCP on February 09. Due to ongoing stability, patient was discharged back home today with home health services. Advised at discharge: After all the MRIs and CT scans of the head and neck done in the hospital, your syncopal episodes likely secondary to cerebrovascular accidents /cardiogenic/vasovagal/orthostatic. We need to rule out each 1 at a time. Kindly follow up with the electronic warfare technical for a loop recorder or a event monitor outpatient. Get a referral from your primary care provider. Follow up with the primary care provider in 1-2 weeks of discharge, cardiology discharge papers and all the medications as well. You will need to follow up with three doctors outside one is your primary care provider, a neurologist and the electronic warfare technical. Get all the referrals from your PCP. We are sending you on aspirin that you take lifelong and Plavix that you take for 21 days, also a statin which you take lifelong. These medications will prevent the risk of recurrent strokes. For your heart, we are sending you on losartan, metoprolol, Aldactone and Farxiga. They are meant to increase the function of your heart. We also recommend to wear compression stockings throughout the day, taken out at night. Eat small frequent meals. If you have recurrence of symptoms, or new stroke-like episodes, kindly returned back to the nearest ER. Physical exam at discharge: General: Awake and Alert, no acute distress. HEENT: Conjunctiva pink, Sclera clear, Mucus Membranes moist. Resp: Unlabored. Lungs clear to auscultation bilaterally. 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 No cranial nerve deficits. Left upper arm drift present. 3- motor strength in the left upper extremity, 3+ in the right upper extremity. Sensory deficits not examined Extremities: No cyanosis,clubbing or edema. Skin: Warm and Dry. No rashes Medications at discharge: Atorvastatin, Plavix, peg, aspirin, Farxiga, metoprolol daily, losartan, Aldactone Labs at discharge: WBC 5.4, RBC 3.5, hemoglobin 10.1, platelets 192 Sodium 139, potassium 4.3, chloride 107, bicarb 25.1, BUN 43, creatinine 1.1, blood glucose 80 *Problems/Diagnosis: (1) Syncope Status: Acute Total Time Spent on D/C: > 30 Minutes Date of Service: January 23, 2025 Billing Provider: MATHIEU LOVE MD Common Visit Codes: 79533-SOI/OBS DISCH DAY >30min Problem Qualifiers (1) Syncope: Syncope type: unspecified Qualified Codes: R55 - Syncope and collapse THAI ESPANA, RES January 23, 2025 16:31 MATHIEU LOVE MD January 23, 2025 16:48
== END 2025-01-23 16:26 | disposition home or self-care (01) | DRG 391 ==
LOC: ER 09:31 → ED HOLD 16:23 → PCU 3S 20:30
PROVIDERS: ADMIT Internal Medicine; ATTEND Internal Medicine
PROC: 4A00X4Z Measurement of Central Nervous Electrical Activity, External Approach (ICD-10-PCS; principal; 2025-01-22)
PROC: B3251ZZ Computerized Tomography (CT Scan) of Bilateral Common Carotid Arteries using Low Osmolar Contrast (ICD-10-PCS; 2025-01-22)
PROC: B32G1ZZ Computerized Tomography (CT Scan) of Bilateral Vertebral Arteries using Low Osmolar Contrast (ICD-10-PCS; 2025-01-22)
PROC: B32R1ZZ Computerized Tomography (CT Scan) of Intracranial Arteries using Low Osmolar Contrast (ICD-10-PCS; 2025-01-22)
PROC: B3281ZZ Computerized Tomography (CT Scan) of Bilateral Internal Carotid Arteries using Low Osmolar Contrast (ICD-10-PCS; 2025-01-22)
DX: A05.9 Bacterial foodborne intoxication, unspecified (principal); I21.A1 Myocardial infarction type 2; I50.23 Acute on chronic systolic (congestive) heart failure; N17.0 Acute kidney failure with tubular necrosis; I69.354 Hemiplegia and hemiparesis following cerebral infarction affecting left non-dominant side; I13.0 Hypertensive heart and chronic kidney disease with heart failure and stage 1 through stage 4 chronic kidney disease, or unspecified chronic kidney disease; N18.4 Chronic kidney disease, stage 4 (severe); K55.1 Chronic vascular disorders of intestine; E78.5 Hyperlipidemia, unspecified; E86.0 Dehydration; F32.A Depression, unspecified; I70.1 Atherosclerosis of renal artery; F32.9 Major depressive disorder, single episode, unspecified; F60.3 Borderline personality disorder; Z91.018 Allergy to other foods; Z74.01 Bed confinement status; Z88.0 Allergy status to penicillin; Z87.891 Personal history of nicotine dependence; Z93.2 Ileostomy status; Z99.3 Dependence on wheelchair
CPT/HCPCS: 36415; 70496; 70498; 70551; 71045; 80048; 80053; 80061; 80305; 81003; 82948; 83036; 83605; 83735; 83880; 84100; 84443; 84484; 85025; 87081; 93005; 93306; 95816; 96361; 96374; 96375; 97161; 97530; 99285; A4615; C1758; G0378; J1200; J1644; J2270; J2405; J7030; J7040; Q9967